=== PATIENT | female | born 1930 | race Caucasian/White ===

== ENCOUNTER 2016-12-05 10:00 | Outpatient (CLI) | payer MEDICARE, OTHER | END 2016-12-05 10:01 | disposition home or self-care (01) | LOC: LAB.F 10:00 | PROVIDERS: ATTEND Family Medicine | DX: E03.9 Hypothyroidism, unspecified (principal) | CPT/HCPCS: 36415; 84443 ==

== ENCOUNTER 2016-12-23 11:17 | Outpatient (CLI) | payer MEDICARE, OTHER ==
[2016-12-23 17:53] LABS: BASOPHILS % (AUTO) 0.5 %; EOSINOPHILS # (AUTO) 0.2 10^3/uL (0.0-0.7); EOSINOPHILS % (AUTO) 2.7 %; HCT - HEMATOCRIT 43.6 % (37.0-47.0); HGB - HEMOGLOBIN 14.4 g/dL (12.0-16.0); LYMPHOCYTES # (AUTO) 1.7 10^3/uL (1.5-3.5); LYMPHOCYTES % (AUTO) 23.1 %; MEAN CORPUSCULAR HEMOGLOBIN 29.6 pg (27.0-31.0); MEAN CORPUSCULAR VOLUME 89.6 fL (81.0-99.0); MONOCYTES % (AUTO) 13.7 %; NEUTROPHILS # (AUTO) 4.4 10^3/uL (1.5-6.6); NUCLEATED RED BLOOD CELLS AUTO 0.1 /100WBC; RED BLOOD COUNT 4.87 10^6/uL (4.20-5.40); RED CELL DISTRIBUTION WIDTH 14.4 % (12.0-15.0); UNCORRECTED WHITE BLOOD COUNT 7.3 x10^3/uL; WHITE BLOOD COUNT 7.3 x10^3/uL (4.8-10.8)
[2016-12-23 18:09] LABS: ALBUMIN/GLOBULIN RATIO 1.4 (1.0-2.2); BILIRUBIN,TOTAL 0.9 mg/dL (0.2-1.0); CREATININE 0.7 mg/dL (0.4-1.0); POTASSIUM 3.2 mmol/L (3.5-5.0); TOTAL PROTEIN 6.7 g/dL (6.7-8.2)
== END 2016-12-23 11:18 | disposition home or self-care (01) ==
LOC: LAB.F 11:17
PROVIDERS: ATTEND Physician Assistant Medical
DX: Z51.81 Encounter for therapeutic drug level monitoring (principal); Z79.899 Other long term (current) drug therapy
CPT/HCPCS: 36415; 80053; 85025

== ENCOUNTER 2017-08-09 18:02 | Emergency (ER) | payer MEDICARE, OTHER ==
--- NOTE | 2017-08-09 18:53 | XRAY Report ---
EXAM: LEFT WRIST RADIOGRAPHY EXAM DATE: 08/09/2017 06:45 PM. CLINICAL HISTORY: Wrist inj. COMPARISON: None. TECHNIQUE: 3 views. FINDINGS: Bones: There is a mildly comminuted and impacted intra-articular fracture involving the distal radius . Moderate dorsal displacement of distal fracture fragments. Joints: Normal. No subluxations. Soft Tissues: Normal. No soft tissue swelling. IMPRESSION: Mildly comminuted and impacted intra-articular fracture of the distal radius with moderat e dorsal distal fracture fragment displacement. [facility] Referring Provider Line: [phone] SITE ID: [id number]
[2017-08-09] MEDS ORDERED: BUFFERED LIDOCAINE 10 ML SYRINGE SUBQ STA (18:54)
--- NOTE | 2017-08-09 19:25 | ED Physician Documentation ---
PD HPI UPPER EXT INJURY - Stated complaint Stated Complaint: WRIST INJURY - Chief complaint Chief Complaint: Ext Problem - History obtained from History obtained from: Patient, Family - History of Present Illness Location: Left, Wrist (She had a mechanical trip and fall while gardening and had a fall on outstretched left hand. She also hit her chest but that does not hurt. No head or neck injury.) Where injury occurred: Home Timing - onset: Today Review of Systems Constitutional: reports: Reviewed and negative Throat: reports: Reviewed and negative Cardiac: reports: Reviewed and negative Respiratory: reports: Reviewed and negative PD PAST MEDICAL HISTORY - Past Medical History Past Medical History: Yes Cardiovascular: Congestive heart failure, Hypertension, Atrial fibrillation Endocrine/Autoimmune: HyPOthyroidism - Past Surgical History Past Surgical History: Yes - Present Medications Home Medications: Ambulatory Orders Medication Instructions Recorded Confirmed Apixaban [Eliquis] 2.5 mg PO BID 03/12/15 03/12/15 Furosemide [Lasix] 20 mg PO DAILY 03/12/15 03/12/15 Levothyroxine [Synthroid] 25 mcg PO DAILY 03/12/15 03/12/15 HYDROcod/ACETAM 5/325 [[place] 5/325] 1 - 2 ea PO Q6H PRN #15 tablet 08/09/17 - Allergies Allergies/Adverse Reactions: Allergies Allergy/AdvReac Type Severity Reaction Status Date / Time No Known Drug Allergies Allergy Verified 03/12/15 01:19 - Social History Does the pt smoke?: No Smoking Status: Never smoker Does the pt drink ETOH?: No Does the pt have substance abuse?: No - Immunizations Immunizations are current?: Yes PD ED PE NORMAL - Vitals Vital signs reviewed: Yes - General General: Alert and oriented X 3, No acute distress - HEENT HEENT: PERRL, EOMI - Neck Neck: Supple, no meningeal sign, No bony TTP - Extremities Extremities: Other (She is deformed left wrist consistent with an angulated Colles' fracture and no range of motion there but normal neurovascular status in the hand. The remainder of her extremities are palpated and nontender.) - Neuro Neuro: Alert and oriented X 3, Normal speech - Psych Psych: Normal mood, Normal affect Results - Vitals Vitals: Vital Signs - 24 hr 08/09/17 18:15 Temperature 37.2 C Heart Rate 97 Respiratory 18 Rate Blood Pressure 115/94 H O2 Saturation 97 Oxygen O2 Source Room air - Rads (name of study) L wrist XR Radiology: EMP read contemporaneously (Moderately angulated and mildly impacted Colles' fracture) Procedures - Splint (location) LUE Splint applied by: Physician Type of splint: Fiberglass, Long arm, Sugar tong Other: Patient tolerated well, No complications, Neurovascular intact - Reduction Body part reduced: Left, Wrist Fracture or dislocation: Fracture dislocation Anesthesia: Hematoma block, Lidocaine (enter cc) Reduction aftercare: Alignment improved Departure - Departure Disposition: 01 Home, Self Care Clinical Impression: Fracture, Colles, left, closed Qualifiers: Encounter type: initial encounter Qualified Code(s): S52.532A - Colles' fracture of left radius, initial encounter for closed fracture Condition: Good Record reviewed to determine appropriate education?: Yes Instructions: ED Fx Forearm Radius Ulna Redu Requ Follow-Up: [facility] [Provider Group] - Within 1 week Prescriptions: HYDROcod/ACETAM 5/325 [[place] 5/325] 1 - 2 ea PO Q6H PRN #15 tablet PRN Reason: Pain Comments: Do not drink or drive while taking narcotic pain medication. Note that many narcotic pain relievers also contain Tylenol/acetaminophen. Please ensure that your total dose of acetaminophen from all sources does not exceed 3 g (3000 mg) per day. You may get constipated while on this medication. Take a stool softener such as Colace twice a day while you are on it. Also add an pbqd-oeg-[id number] laxative such as senna or MiraLAX on any day that you do not have a bowel movement. If you received a narcotic pain medication or sedative while in the emergency department, do not drive for the next 24 hours. Your blood pressure was elevated today on check into the emergency department. This does not mean that you have hypertension, it is a common phenomenon to come to the emergency department and have elevated blood pressure. I recommend that you see your primary care physician within the week to have it rechecked when you are feeling better.
[2017-08-09] MEDS ORDERED: HYDROcod/ACETAM 5/325 MG TABLET PO STA (19:46)
[2017-08-09 20:00] VITALS: BP 126/81
== END 2017-08-09 19:55 | disposition home or self-care (01) ==
LOC: ED 18:02
DX: S52.532A Colles' fracture of left radius, initial encounter for closed fracture (principal); W01.0XXA Fall on same level from slipping, tripping and stumbling without subsequent striking against object, initial encounter; Y93.H2 Activity, gardening and landscaping; Y92.007 Garden or yard of unspecified non-institutional (private) residence as the place of occurrence of the external cause; I11.0 Hypertensive heart disease with heart failure; I50.9 Heart failure, unspecified; I48.91 Unspecified atrial fibrillation; Z79.01 Long term (current) use of anticoagulants; E03.9 Hypothyroidism, unspecified
CPT/HCPCS: 25605; 73110; 99283; A9270

== ENCOUNTER 2017-08-17 06:14 | Day surgery (SDC) | payer MEDICARE, OTHER ==
[~2017-08-17 06:14] MED LIST: ACETAMINOPHEN 1,000 MG/100 ML 100 ML IV ONE; DEXAMETHASONE 4 MG/ML VIAL IVP ONE; LIDOCAINE-MPF 2% 5 ML VIAL IM ONE; MIDAZOLAM 2 MG/2 ML VIAL IVP ONE; ONDANSETRON 4 MG/2 ML VIAL IVP ONE; PROPOFOL 200 MG/20 ML VIAL IVP ONE; fentaNYL 100 MCG/2 ML VIAL IVP ONE
[2017-08-17] MEDS ORDERED: LIDOCAINE-MPF 2% 5 ML VIAL IM ONE (06:15)
[2017-08-17] MEDS ORDERED: PROPOFOL 200 MG/20 ML VIAL IVP ONE (06:15)
[2017-08-17] MEDS ORDERED: MIDAZOLAM 2 MG/2 ML VIAL IVP ONE (06:15)
[2017-08-17] MEDS ORDERED: fentaNYL 100 MCG/2 ML VIAL IVP ONE (06:15)
[2017-08-17] MEDS ORDERED: ONDANSETRON 4 MG/2 ML VIAL IVP ONE (06:15)
[2017-08-17] MEDS ORDERED: DEXAMETHASONE 4 MG/ML VIAL IVP ONE (06:15)
[2017-08-17] MEDS ORDERED: ACETAMINOPHEN 1,000 MG/100 ML 100 ML IV ONE (06:15)
[2017-08-17] MEDS ORDERED: LACTATED RINGERS 1,000 ML IV ONE (07:14)
[2017-08-17] MEDS ORDERED: LIDOCAINE 1%-EPI 1:100000 30 ML MDV ONE (07:35)
[2017-08-17] MEDS ORDERED: BUPIVACAINE 0.25%-EPI 1:200000 PF 30 ML VIAL ONE (07:35)
[2017-08-17] MEDS ORDERED: LIDOCAINE MPF 1%-EPI 1:200000 30 ML VIAL SUBQ ONE (07:58)
[2017-08-17] MEDS ORDERED: BUPIVACAINE 0.25%-EPI 1:200000 PF 10 ML VIAL SUBQ ONE (07:58)
[2017-08-17 09:56] VITALS: BP 137/83
--- NOTE | 2017-08-17 16:17 | OPERATIVE REPORT ---
DATE OF SERVICE: 08/17/2017 Physician: Renny Dempsey MD PREOPERATIVE DIAGNOSIS: Left wrist closed intra-articular angulated distal radial fracture. POSTOPERATIVE DIAGNOSIS: Left wrist closed intra-articular angulated distal radial fracture. PROCEDURE PERFORMED: Left wrist closed reduction with percutaneous pinning of the distal radius. SURGEON: Renny Dempsey M.D. ANESTHESIA: General by Alta Valera. INDICATIONS FOR SURGERY: Patient is an 87-year-old female status post a ground level fall with injury to the left wrist causing a comminuted intra-articular angulated and displaced fracture. The patient was seen in the ER initially and referred to the clinic where a discussion was held with the patient about possible modes of treatment including accepting the deformity and treating her with casting versus intraoperative treatment by plate fixation or pinning. The patient elected for surgical repair after a full discussion of risks and benefits. DESCRIPTION OF OPERATIVE PROCEDURE: The patient was taken to the operating room. Prior to prep and drape, the patient underwent a closed reduction with C-arm imaging and an adequate reduction was gained and it was felt stable for pinning. The patient unfortunately had a dorsal skin tear with the manual manipulation and this was a very superficial skin tear on the dorsum of the wrist, but fairly extensile of about 4 cm in length. It was elected at that point to proceed with a sterile prep and drape and careful repositioning of the dorsal skin tear to allow position of the fracture and no further manipulation required. Once the hand and arm were prepped and draped, surgical timeout was held after which, a C-arm imaging was used to directly visualize the insertion of two 0.062 K-wires from transradial styloid into the more proximal radial shaft gaining very good fixation and excellent alignment in radiographic AP and lateral planes. The pins were bent and cut outside the skin with a Jurgan ball applied to one of them and the other placed next to it. The suture repair of the dorsal flap was with 4-0 nylon interrupted tacking the flap back down again and then applying Xeroform dressings on the flap and the pin sites and then sterile dressings and a well-molded splint to immobilize the patient's wrist and thumb. At this point, the patient was awakened and taken to the recovery room in stable condition. ESTIMATED BLOOD LOSS: Minimal. COMPLICATIONS: Involved a superficial dorsal skin tear requiring suture closure. TD: 08/17/2017 08:46
== END 2017-08-17 06:15 | disposition home or self-care (01) ==
LOC: SDS 06:14
PROVIDERS: ATTEND Orthopaedic Surgery
PROC: 0PSJ34Z Reposition Left Radius with Internal Fixation Device, Percutaneous Approach (ICD-10-PCS; principal; 2017-08-17 07:30)
DX: S52.572A Other intraarticular fracture of lower end of left radius, initial encounter for closed fracture (principal); I50.9 Heart failure, unspecified
CPT/HCPCS: 25606; C1713; J0131; J7120

== ENCOUNTER 2017-08-31 10:50 | Outpatient (CLI) | payer MEDICARE, OTHER ==
--- NOTE | 2017-08-31 12:14 | XRAY Report ---
Procedure Date: 08/31/2017 Accession Number: [id number] / [id number] Procedure: XR - Hip w/Pelvis 2-3V LT CPT Code: FULL RESULT: EXAM: Hip w/Pelvis 2-3V LT DATE: 08/31/2017 11:02 AM CLINICAL HISTORY: HIP Pain, left COMPARISON: 06/03/2009 TECHNIQUE: 1 view of the pelvis and 1 view of the hip. FINDINGS: Bones: Previous right hip fixation. Old, healed pelvic fractures. Previous lumbar spine fusion. Joints: Mild osteoarthritis of the left hip. Soft Tissues: Normal. No soft tissue swelling. IMPRESSION: Mild osteoarthritis. Posttraumatic changes. No evidence of acute fracture. [facility]
== END 2017-08-31 10:51 | disposition home or self-care (01) ==
LOC: DI 10:50
PROVIDERS: ATTEND Internal Medicine
DX: M16.12 Unilateral primary osteoarthritis, left hip (principal)

== ENCOUNTER 2017-09-23 13:20 | Outpatient (CLI) | payer MEDICARE, OTHER | END 2017-09-23 13:21 | disposition short-term general hospital (02) | LOC: EMS 13:20 | PROVIDERS: ATTEND Surgery | DX: M54.5 Low back pain (principal) | CPT/HCPCS: A0170; A0425; A0427 ==

== ENCOUNTER 2018-02-06 15:55 | Outpatient (CLI) | payer MEDICARE, OTHER ==
--- NOTE | 2018-02-06 18:21 | XRAY Report ---
Reason: PAIN IN RIGHT THIGH Procedure Date: 02/06/2018 Accession Number: [id number] / [id number] Procedure: XR - Hip w/Pelvis 2-3V RT CPT Code: FULL RESULT: EXAM: RIGHT HIP AND PELVIS RADIOGRAPHY EXAM DATE: 02/06/2018 04:12 PM. HISTORY: PAIN IN RIGHT THIGH. COMPARISONS: LUMBAR SPINE 2 VIEW 11/27/2017 1:46 PM. TECHNIQUE: 1 view of the pelvis and 1 view of the hip. FINDINGS: Bones: Patient has undergone internal fixation of right femoral neck fracture. 3 femoral neck screws are in place. No evidence of hardware dysfunction. Joints: No evidence of dislocation. There is sclerosis of the right sacroiliac joint. Soft Tissues: No acute soft tissue abnormalities are seen. IMPRESSION: 1. No evidence of acute fracture or dislocation. 2. Patient has undergone internal fixation of proximal right femur fracture. There is no evidence of hardware dysfunction. 3. There is right sacroiliac joint sclerosis. [facility]
== END 2018-02-06 15:56 | disposition home or self-care (01) ==
LOC: DI 15:55
PROVIDERS: ATTEND Internal Medicine
DX: M79.651 Pain in right thigh (principal); Z98.890 Other specified postprocedural states

== ENCOUNTER 2018-05-19 00:30 | Outpatient (CLI) | payer MEDICARE, OTHER | END 2018-05-19 00:31 | disposition critical access hospital (66) | LOC: EMS 00:30 | PROVIDERS: ATTEND Surgery | DX: S49.92XA Unspecified injury of left shoulder and upper arm, initial encounter (principal); W18.09XA Striking against other object with subsequent fall, initial encounter; Y92.008 Other place in unspecified non-institutional (private) residence as the place of occurrence of the external cause | CPT/HCPCS: A0425; A0427 ==

== ENCOUNTER 2018-05-19 01:02 | Emergency (ER) | payer MEDICARE, OTHER ==
--- NOTE | 2018-05-19 01:13 | ED Physician Documentation ---
PD HPI UPPER EXT INJURY - Stated complaint Stated Complaint: GLF/SHOULDER INJURY - Chief complaint Chief Complaint: Trauma Ext - History obtained from History obtained from: Patient - History of Present Illness Location: Left, Shoulder Type of injury: Fall Where injury occurred: Home Timing - onset: Today Timing - duration: Minutes Timing - details: Abrupt onset, Still present Improved by: Rest, Immobilization Worsened by: Moving, Palpating Associated symptoms: No: Weakness, Numbness, Tingling Contributing factors: No: Anticoagulated Similar symptoms before: Diagnosis (wrist fracture) Recently seen: Not recently seen - Additonal information Additional information: 88-year-old female who lives alone and usually ambulates with the use of a 3 wheeled walker was walking in her house this evening with her shoes on. She does not usually wear her shoes and she tripped over a rug and fell onto her left side injuring her left shoulder. She denies any other specific injury denies any loss of consciousness with this and denies any current illness. She is not able to move her left arm secondary to pain in the shoulder. She has had a fracture of her wrist previously and she requests the presence of Dr. Love. Review of Systems Constitutional: denies: Fever Eyes: denies: Decreased vision Ears: denies: Ear pain Nose: denies: Congestion Throat: denies: Sore throat Cardiac: denies: Palpitations Respiratory: denies: Dyspnea, Cough GI: denies: Abdominal Pain, Nausea, Vomiting, Constipation, Diarrhea : denies: Dysuria, Frequency Skin: denies: Rash Musculoskeletal: reports: Extremity pain, Joint pain. denies: Neck pain, Back pain Neurologic: denies: Generalized weakness, Focal weakness, Numbness PD PAST MEDICAL HISTORY - Past Medical History Cardiovascular: Congestive heart failure, Coronary artery disease, Deep vein thrombosis, Pulmonary embolism, Atrial fibrillation, Other Respiratory: COPD, Other Endocrine/Autoimmune: HyPOthyroidism GI: GI bleed, Ulcers, Chronic constipation, Other : Chronic bladder infection HEENT: Chronic vision loss Psych: Anxiety, Panic attacks Musculoskeletal: Osteoarthritis, Chronic back pain Derm: None - Past Surgical History Past Surgical History: Yes General: Bowel surgery, Colonoscopy Ortho: Hip replacement, 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 Cardiovascular: Other - Present Medications Home Medications: Ambulatory Orders Medication Instructions Recorded Confirmed Apixaban [Eliquis] 2.5 mg PO BID 03/12/15 08/15/17 Levothyroxine [Synthroid] 75 mcg PO DAILY 03/12/15 08/15/17 Albuterol Sulf [Ventolin Hfa 1 - 2 puffs INH Q4HR PRN 08/15/17 08/15/17 Inhaler] Calcium Carbonate [Calcium] 1,200 mg PO BID 08/15/17 08/17/17 Cholecalciferol (Vitamin D3) 1,000 unit PO DAILY 08/15/17 08/17/17 [Vitamin D3] Cyanocobalamin (Vitamin B-12) 500 mcg PO DAILY 08/15/17 08/17/17 [Vitamin B-12] Fluticasone/Vilanterol [Breo 1 each IH DAILY 08/15/17 08/15/17 Ellipta 100-25 Mcg INH] L. Acidophilus/L. Rhamnosus 1 each PO DAILY 08/15/17 08/17/17 [Probiotic 15 Billion Cell Cap] Methenamine Hippurate 1 gm PO .Q12HR 08/15/17 08/17/17 Multivitamin [Multiple Vitamins] 1 each PO DAILY 08/15/17 08/17/17 Potassium Gluconate 550 mg PO DAILY 08/15/17 08/17/17 Pyridoxine HCl [Vitamin B-6] 100 mg PO DAILY 08/15/17 08/17/17 Vitamin E (Dl,Tocopheryl Acet) 400 unit PO DAILY 08/15/17 08/17/17 [Vitamin E] Zolpidem [Ambien] 5 mg PO HS PRN 08/15/17 08/17/17 Hydrocodone/Acetaminophen 1 - 2 each PO Q6H PRN #14 tablet 05/19/18 [Hydrocodon-Acetaminophen 5-325] - Allergies Allergies/Adverse Reactions: Allergies Allergy/AdvReac Type Severity Reaction Status Date / Time ciprofloxacin [From Cipro] AdvReac increased Verified 08/17/17 07:03 pain Sulfa (Sulfonamide AdvReac Nausea Verified 08/17/17 07:03 Antibiotics) - Social History Does the pt smoke?: No Smoking Status: Never smoker Does the pt drink ETOH?: No Does the pt have substance abuse?: No - Immunizations Immunizations are current?: Yes PD ED PE NORMAL - Vitals Vital signs reviewed: Yes (tachy and hypertensive ) - General General: Alert and oriented X 3, Well developed/nourished, Other (appears anxious and in pain ) - HEENT HEENT: Atraumatic, PERRL, EOMI - Neck Neck: Supple, no meningeal sign - Respiratory Respiratory: No respiratory distress - Derm Derm: Normal color, Warm and dry, No rash - Extremities Extremities: Other (There is anterior fullness on the left side and the patient will not move the arm. She is able to move the wrist and the hand and has normal distal sensation. 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 Osteopenia with fracture at the neck of the humerus.), EMP read indepedently, See rad report PD MEDICAL DECISION MAKING - ED course Complexity details: reviewed old records, reviewed results, re-evaluated patient, considered differential, d/w patient, d/w family ED course: 88-year-old female with a fall in her home denies current illness repeats that she tripped over a rug because she had her shoes on and she has a proximal humerus fracture. She is placed into a sling she is administered fentanyl 100 mcg intravenously for pain control and this works well for the patient. She does have a tenant who lives above her who will be [facility] and she has a daughter that lives in [place] that can come back over to visit. I have indicated to the patient that she will likely develop some ecchymosis to the left forearm and that because she is 3 wheel walker dependent she may have some trouble at home. She feels confident that she will be able to manage at home. Departure - Departure Disposition: 01 Home, Self Care Clinical Impression: Fx humeral neck Qualifiers: Encounter type: initial encounter Fracture type: closed Laterality: left Qualified Code(s): S42.212A - Unspecified displaced fracture of surgical neck of left humerus, initial encounter for closed fracture Condition: Stable Instructions: Humerus Fx Follow-Up: David Castillo MD [Primary Care Provider] - Renny Dempsey MD [Provider Admit Priv/Credential] - Prescriptions: Hydrocodone/Acetaminophen [Hydrocodon-Acetaminophen 5-325] 1 - 2 each PO Q6H PRN #14 tablet PRN Reason: pain
[2018-05-19 01:19] VITALS: BP 161/114
[2018-05-19] MEDS ORDERED: fentaNYL 100 MCG/2 ML VIAL IVP STA (01:39)
--- NOTE | 2018-05-19 02:07 | XRAY Report ---
Reason: fall anterior fullness wont move the arm Procedure Date: 05/19/2018 Accession Number: [id number] / [id number] Procedure: XR - Shoulder 3 View LT CPT Code: FULL RESULT: EXAM: LEFT SHOULDER RADIOGRAPHY EXAM DATE: 05/19/2018 01:57 AM. CLINICAL HISTORY: Fall anterior fullness wont move the arm. COMPARISON: None. TECHNIQUE: 3 views. FINDINGS: Bones: Osteopenia. Fracture of the humeral neck. Joints: No dislocation seen. Mild degenerative changes in the glenohumeral joint and acromioclavicular joint. Soft tissues: Mild soft tissue swelling. IMPRESSION: 1. Osteopenia with fracture at the neck of the humerus. [facility]
[2018-05-19] MEDS ORDERED: HYDROcod/ACET 5/325 Prepack 4 PO STA (03:12)
== END 2018-05-19 03:30 | disposition home or self-care (01) ==
LOC: EDUNIT# → ED 01:02
DX: S42.292A Other displaced fracture of upper end of left humerus, initial encounter for closed fracture (principal); W01.0XXA Fall on same level from slipping, tripping and stumbling without subsequent striking against object, initial encounter; Y93.01 Activity, walking, marching and hiking; Y92.009 Unspecified place in unspecified non-institutional (private) residence as the place of occurrence of the external cause
CPT/HCPCS: 96374; 99283

== ENCOUNTER 2018-05-24 14:00 | Outpatient (CLI) | payer MEDICARE, OTHER ==
[2018-05-24 17:45] LABS: BASOPHILS # (AUTO) 0.1 10^3/uL (0.0-0.1); BASOPHILS % (AUTO) 0.8 %; EOSINOPHILS # (AUTO) 0.3 10^3/uL (0.0-0.7); EOSINOPHILS % (AUTO) 3.7 %; HGB - HEMOGLOBIN 12.3 g/dL (12.0-16.0); LYMPHOCYTES # (AUTO) 1.3 10^3/uL (1.5-3.5); LYMPHOCYTES % (AUTO) 18.5 %; MEAN CORPUSCULAR HEMOGLOBIN 29.5 pg (27.0-31.0); MEAN CORPUSCULAR HGB CONC 32.6 g/dL (32.0-36.0); MEAN CORPUSCULAR VOLUME 90.6 fL (81.0-99.0); MEAN PLATELET VOLUME 8.8 fL (7.9-10.8); MONOCYTES # (AUTO) 0.9 10^3/uL (0.0-1.0); MONOCYTES % (AUTO) 12.8 %; NEUTROPHILS # (AUTO) 4.4 10^3/uL (1.5-6.6); NEUTROPHILS % (AUTO) 64.2 %; PLT - PLATELET COUNT 263 10^3/uL (130-450); RED BLOOD COUNT 4.16 10^6/uL (4.20-5.40); WHITE BLOOD COUNT 6.9 x10^3/uL (4.8-10.8)
[2018-05-24 18:00] LABS: ALBUMIN 3.6 g/dL (3.2-5.5); ALBUMIN/GLOBULIN RATIO 1.3 (1.0-2.2); BILIRUBIN,TOTAL 1.3 mg/dL (0.2-1.0); CALCIUM 8.5 mg/dL (8.5-10.3); CREATININE 0.6 mg/dL (0.4-1.0); TOTAL PROTEIN 6.4 g/dL (6.7-8.2)
== END 2018-05-24 14:01 | disposition home or self-care (01) ==
LOC: LAB.F 14:00
PROVIDERS: ATTEND Internal Medicine
DX: Z00.00 Encounter for general adult medical examination without abnormal findings (principal); I48.0 Paroxysmal atrial fibrillation
CPT/HCPCS: 36415; 80053; 84443; 85025

== ENCOUNTER 2018-05-31 08:40 | Outpatient (CLI) | payer MEDICARE, OTHER | END 2018-05-31 08:41 | disposition EMS.NT | LOC: EMS 08:40 | PROVIDERS: ATTEND Surgery | DX: M25.512 Pain in left shoulder (principal); W18.30XA Fall on same level, unspecified, initial encounter ==

== ENCOUNTER 2018-05-31 10:08 | Emergency (ER) | payer MEDICARE, OTHER ==
--- NOTE | 2018-05-31 11:57 | XRAY Report ---
Reason: fall today Procedure Date: 05/31/2018 Accession Number: [id number] / [id number] Procedure: XR - Humerus LT CPT Code: FULL RESULT: EXAM: LEFT HUMERUS RADIOGRAPHY EXAM DATE: 05/31/2018 11:04 AM. CLINICAL HISTORY: Increased pain after fall today. History of fracture shoulder 05/19/2018. COMPARISON: Left shoulder series 05/19/2018. TECHNIQUE: 2 views. FINDINGS: Bones: Redemonstration of displaced left humeral neck fracture. Lateral view technically limited by bony overlap. There is nondisplaced fracture of the greater tuberosity not evident previously. Joints: No dislocation or change. Soft Tissues: Mild swelling. IMPRESSION: 1. Displaced left humeral neck fracture in grossly stable alignment. 2. Nondisplaced fracture of the greater tuberosity not evident previously. [facility]
--- NOTE | 2018-05-31 12:06 | ED Physician Documentation ---
PD HPI UPPER EXT INJURY - Stated complaint Stated Complaint: GLF - Chief complaint Chief Complaint: Ext Problem - History obtained from History obtained from: Patient, Family - History of Present Illness Location: Left, Shoulder, Forearm Type of injury: Fall (stumbled and fell to left, according to ) Where injury occurred: Home Timing - onset: Today Timing - details: Abrupt onset Worsened by: Moving Contributing factors: No: Anticoagulated (Rx Eliquis but had run out over a week ago, so not on it currently. Has Rx to resume it tomorrow.) Recently seen: Emergency Dept (recent fall with humeral head Fx and has been w earing sling. Taking only Tylenol or Ibuprofen for the pain. Wearing sling regularly.) Review of Systems Constitutional: denies: Fever Nose: denies: Rhinorrhea / runny nose, Congestion Throat: denies: Sore throat Cardiac: reports: Pedal edema. denies: Chest pain / pressure, Calf pain Respiratory: reports: Dyspnea. denies: Cough, Wheezing GI: denies: Abdominal Pain, Vomiting, Diarrhea, Bloody / black stool Skin: denies: Abrasion (s), Laceration (s) PD PAST MEDICAL HISTORY - Past Medical History Cardiovascular: Congestive heart failure, Coronary artery disease, Deep vein thrombosis, Pulmonary embolism, Atrial fibrillation, Other Respiratory: COPD, Other Endocrine/Autoimmune: HyPOthyroidism GI: GI bleed, Ulcers, Chronic constipation, Other : Chronic bladder infection HEENT: Chronic vision loss Psych: Anxiety, Panic attacks Musculoskeletal: Osteoarthritis, Chronic back pain Derm: None - Past Surgical History Past Surgical History: Yes General: Bowel surgery, Colonoscopy Ortho: Hip replacement, 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 Cardiovascular: Other - Present Medications Home Medications: Ambulatory Orders Medication Instructions Recorded Confirmed Apixaban [Eliquis] 2.5 mg PO BID 03/12/15 08/15/17 Levothyroxine [Synthroid] 75 mcg PO DAILY 03/12/15 08/15/17 Albuterol Sulf [Ventolin Hfa 1 - 2 puffs INH Q4HR PRN 08/15/17 08/15/17 Inhaler] Calcium Carbonate [Calcium] 1,200 mg PO BID 08/15/17 08/17/17 Cholecalciferol (Vitamin D3) 1,000 unit PO DAILY 08/15/17 08/17/17 [Vitamin D3] Cyanocobalamin (Vitamin B-12) 500 mcg PO DAILY 08/15/17 08/17/17 [Vitamin B-12] Fluticasone/Vilanterol [Breo 1 each IH DAILY 08/15/17 08/15/17 Ellipta 100-25 Mcg INH] L. Acidophilus/L. Rhamnosus 1 each PO DAILY 08/15/17 08/17/17 [Probiotic 15 Billion Cell Cap] Methenamine Hippurate 1 gm PO .Q12HR 08/15/17 08/17/17 Multivitamin [Multiple Vitamins] 1 each PO DAILY 08/15/17 08/17/17 Potassium Gluconate 550 mg PO DAILY 08/15/17 08/17/17 Pyridoxine HCl [Vitamin B-6] 100 mg PO DAILY 08/15/17 08/17/17 Vitamin E (Dl,Tocopheryl Acet) 400 unit PO DAILY 08/15/17 08/17/17 [Vitamin E] Zolpidem [Ambien] 5 mg PO HS PRN 08/15/17 08/17/17 Hydrocodone/Acetaminophen 1 - 2 each PO Q6H PRN #14 tablet 05/19/18 [Hydrocodon-Acetaminophen 5-325] - Allergies Allergies/Adverse Reactions: Allergies Allergy/AdvReac Type Severity Reaction Status Date / Time ciprofloxacin [From Cipro] AdvReac increased Verified 08/17/17 07:03 pain Sulfa (Sulfonamide AdvReac Nausea Verified 08/17/17 07:03 Antibiotics) - Social History Does the pt smoke?: No Smoking Status: Never smoker Does the pt drink ETOH?: No Does the pt have substance abuse?: No - Immunizations Immunizations are current?: Yes PD ED PE NORMAL - Vitals Vital signs reviewed: Yes - General General: Alert and oriented X 3, Well developed/nourished - HEENT HEENT: Atraumatic, Moist mucous membranes, Pharynx benign - Neck Neck: Supple, no meningeal sign, No bony TTP - Cardiac Cardiac: RRR, No murmur - Respiratory Respiratory: Clear bilaterally - Abdomen Abdomen: Soft, Non tender - Derm Derm: Normal color, Warm and dry - Extremities Extremities: No calf tenderness / cord, Other (mild edema in both legs, left more, 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 Left elbow with mild abrasion or rub area. Shoulder with guarded ROM. ) Results - Vitals Vitals: Vital Signs - 24 hr 05/31/18 05/31/18 10:27 13:02 Temperature 36.4 C L 36.2 C L Heart Rate 110 H 106 H Respiratory 20 16 Rate Blood Pressure 163/91 H 141/89 H O2 Saturation 97 97 Oxygen O2 Source Room air - Rads (name of study) left humerus Radiology: Prelim report reviewed, EMP read contemporaneously (prior fracture in much better position. No new fracture. ), See rad report PD MEDICAL DECISION MAKING - ED course Complexity details: considered differential (recent humeral head fx and fell again when turned quick and stumbled. Fell to left side and has some elbow pain. Denies other injury, did not hit head. Had run out of Eliquis so not on it the past week or more. 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 ), d/w patient, d/w family Departure - Departure Disposition: 01 Home, Self Care Clinical Impression: Fall from slip, trip, or stumble Qualifiers: Encounter type: initial encounter Qualified Code(s): W01.0XXA - Fall on same level from slipping, tripping and stumbling without subsequent striking against object, initial encounter Elbow pain Qualifiers: Laterality: left Qualified Code(s): M25.522 - Pain in left elbow Fx humeral neck Qualifiers: Encounter type: subsequent encounter Fracture type: closed Laterality: left Fracture healing: with routine healing Qualified Code(s): S42.212D - Unspecified displaced fracture of surgical neck of left humerus, subsequent encounter for fracture with routine healing Condition: Stable Record reviewed to determine appropriate education?: Yes Follow-Up: David Castillo MD [Primary Care Provider] - Renny Dempsey MD [Provider Admit Priv/Credential] - Comments: Your prior fracture of the humeral head is actually in good position on the repeat x-ray today. There is no new fractures seen. Continue treatment with the sling and follow-up with orthopedics as planned. Continue present medications of Tylenol or ibuprofen as needed for pains. Resume the Eliquis and start the triamterene diuretic as prescribed by your truck farmer. Discharge Date/Time: 05/31/18 13:08
[2018-05-31] MEDS ORDERED: ACETAMINOPHEN 325 MG TABLET PO STA (12:24)
[2018-05-31] MEDS ORDERED: A & D OINTMENT 5 GM PACKET TOP STA (12:24)
[2018-05-31] MEDS ORDERED: HYDROcod/ACETAM 5/325 MG TABLET PO STA (12:25)
[2018-05-31] MEDS ORDERED: NAPROXEN 250 MG TABLET PO STA (12:25)
[2018-05-31 13:03] VITALS: BP 141/89
== END 2018-05-31 13:08 | disposition home or self-care (01) ==
LOC: ED 10:08
DX: S42.255A Nondisplaced fracture of greater tuberosity of left humerus, initial encounter for closed fracture (principal); W01.0XXA Fall on same level from slipping, tripping and stumbling without subsequent striking against object, initial encounter; Y92.009 Unspecified place in unspecified non-institutional (private) residence as the place of occurrence of the external cause; S42.212A Unspecified displaced fracture of surgical neck of left humerus, initial encounter for closed fracture; M25.522 Pain in left elbow; I50.9 Heart failure, unspecified; I25.10 Atherosclerotic heart disease of native coronary artery without angina pectoris; Z86.718 Personal history of other venous thrombosis and embolism; S50.312A Abrasion of left elbow, initial encounter
CPT/HCPCS: 73060; 99283; A9270

== ENCOUNTER 2018-06-14 12:50 | Outpatient (CLI) | payer MEDICARE, OTHER ==
[2018-06-14 13:15] LABS: BASOPHILS # (AUTO) 0.1 10^3/uL (0.0-0.1); EOSINOPHILS # (AUTO) 0.1 10^3/uL (0.0-0.7); EOSINOPHILS % (AUTO) 1.7 %; HGB - HEMOGLOBIN 12.8 g/dL (12.0-16.0); LYMPHOCYTES # (AUTO) 1.4 10^3/uL (1.5-3.5); LYMPHOCYTES % (AUTO) 16.9 %; MEAN CORPUSCULAR HEMOGLOBIN 29.6 pg (27.0-31.0); MEAN CORPUSCULAR HGB CONC 33.1 g/dL (32.0-36.0); MEAN CORPUSCULAR VOLUME 89.3 fL (81.0-99.0); MEAN PLATELET VOLUME 7.5 fL (7.9-10.8); MONOCYTES % (AUTO) 12.7 %; NEUTROPHILS # (AUTO) 5.4 10^3/uL (1.5-6.6); NEUTROPHILS % (AUTO) 67.7 %; PLT - PLATELET COUNT 319 10^3/uL (130-450); RED BLOOD COUNT 4.34 10^6/uL (4.20-5.40); RED CELL DISTRIBUTION WIDTH 14.3 % (12.0-15.0)
[2018-06-14 13:27] LABS: CALCIUM 8.5 mg/dL (8.5-10.3); CREATININE 0.7 mg/dL (0.4-1.0)
== END 2018-06-14 12:51 | disposition home or self-care (01) ==
LOC: LAB 12:50
PROVIDERS: ATTEND Orthopaedic Surgery
DX: Z01.812 Encounter for preprocedural laboratory examination (principal); S42.222D 2-part displaced fracture of surgical neck of left humerus, subsequent encounter for fracture with routine healing; S42.302D Unspecified fracture of shaft of humerus, left arm, subsequent encounter for fracture with routine healing; Z79.899 Other long term (current) drug therapy
CPT/HCPCS: 36415; 80048; 85025; 87640

== ENCOUNTER 2018-06-21 10:07 | Outpatient (CLI) | payer MEDICARE, OTHER | END 2018-06-21 10:08 | disposition home or self-care (01) | LOC: LAB.F 10:07 | PROVIDERS: ATTEND Internal Medicine | DX: E03.9 Hypothyroidism, unspecified (principal); E87.6 Hypokalemia | CPT/HCPCS: 36415; 84132; 84443 ==

== ENCOUNTER 2018-06-26 10:28 | Inpatient (IN) | payer MEDICARE, OTHER ==
[~2018-06-26 10:28] MED LIST changes: -DEXAMETHASONE 4 MG/ML VIAL IVP ONE; -LIDOCAINE-MPF 2% 5 ML VIAL IM ONE; -MIDAZOLAM 2 MG/2 ML VIAL IVP ONE; -ONDANSETRON 4 MG/2 ML VIAL IVP ONE; -PROPOFOL 200 MG/20 ML VIAL IVP ONE; +ceFAZolin 2 GM/50 ML 2 GM/50 ML BAG IV ONE; -fentaNYL 100 MCG/2 ML VIAL IVP ONE
--- NOTE | 2018-06-26 11:23 | ANESTHESIA ---
Pre-Anesthesia VS, & Labs - Diagnosis Left humerous neck fracture - Procedure left shoulder hemiarthroplasty Vital Signs: Temp Pulse Resp BP Pulse Ox 36.5 C 105 H 18 147/95 H 98 06/26/18 10:35 06/26/18 10:35 06/26/18 10:35 06/26/18 10:35 06/26/18 10:35 Height 5 ft Weight (kg) 63 kg Body Mass Index 26.7 - NPO >8 hours - Is Patient ?: No Home Medications and Allergies Home Medications: Ambulatory Orders Levothyroxine Sodium [Synthroid] 50 mcg PO QDAC 06/26/18 Potassium Chloride [Klor-Con 10] 10 meq PO BIDWM 06/26/18 Triamterene/Hydrochlorothiazid [Triamterene-Hctz 37.5-25 mg Cp] 1 cap PO DAILY 06/26/18 Apixaban [Eliquis] 2.5 mg PO BID 03/12/15 Methenamine Hippurate 1 gm PO Q12H 08/15/17 Ascorbic Acid [Vitamin C] 500 mg PO DAILY 06/14/18 Cholecalciferol (Vitamin D3) [Vitamin D3] 3,000 unit PO DAILY 06/14/18 Mupirocin 1 applic TP BID PRN 06/14/18 Trazodone HCl 100 mg PO QPM 06/14/18 Triamcinolone 0.1% Oint [Kenalog 0.1% Oint] 1 applic TOP BID PRN 06/14/18 Levothyroxine Sodium [Synthroid] 50 mcg PO QDAC 06/26/18 Potassium Chloride [Klor-Con 10] 10 meq PO BIDWM 06/26/18 Triamterene/Hydrochlorothiazid [Triamterene-Hctz 37.5-25 mg Cp] 1 cap PO DAILY 06/26/18 Allergies/Adverse Reactions: Allergies Allergy/AdvReac Type Severity Reaction Status Date / Time ciprofloxacin [From Cipro] AdvReac increased Verified 08/17/17 07:03 pain Sulfa (Sulfonamide AdvReac Nausea Verified 08/17/17 07:03 Antibiotics) Anes History & Medical History - Anesthetic History Anesthesia Complications: reports: No previous complications - Medical History Cardiovascular: reports: Congestive heart failure, Deep vein thrombosis, Pulmonary embolism, Arrhythmia Pulmonary: reports: None Gastrointestinal: reports: Colon polyps, Chronic constipation, Other Urinary: reports: None, Incontinence Neuro: reports: TIA Musculoskeletal: reports: Osteoporosis, Chronic back pain Endocrine/Autoimmune: reports: HyPOthyroidism Blood Disorders: reports: None Skin: reports: Other Smoking Status: Never smoker Psychosocial: reports: No issues indicated - Surgical History General: Colonoscopy Eyes Ears Nose Throat (EENT): Cataracts, Tonsil/Adenoidectomy Cardiothoracic: Other Gynecologic: Tubal ligation Orthopedic: Spine surgery, Other Dermatologic: Skin cancer surgery Exam General: Alert, Oriented x3, Cooperative, No acute distress Dental: Poor dentition Mouth Openin Fingerbreadth (poor mouth opening) Neck Mobility: Normal Mallampati classification: IV Thyromental Distance: less than 4 cm Respiratory: Lungs clear, Normal breath sounds, No respiratory distress, No accessory muscle use Cardiovascular: Regular rate, Normal S1, Normal S2, No murmurs Mental/Cognitive Status: Alert/Oriented X3, Normal for patient Plan Anesthesia Type: General, Supraclavicular Block (Left for post op pain control per surgeon request) Regional Block: Per Surgeon's request for Post Op pain control Consent for Procedure(s) Verified and Reviewed: Yes Code Status: Attempt Resuscitation ASA classification: 3-Severe systemic disease Is this case an emergency?: No
[2018-06-26] MEDS ORDERED: LACTATED RINGERS 1,000 ML IV ONE ×3 (11:24→14:06)
[2018-06-26] MEDS ORDERED: MIDAZOLAM 2 MG/2 ML VIAL ONE (11:38)
[2018-06-26] MEDS ORDERED: BUPIVACAINE 0.5%-EPI 1:200000 PF 30 ML VIAL ONE (12:40)
[2018-06-26] MEDS ORDERED: BUPIVACAINE 0.25%-EPI 1:200000 PF 30 ML VIAL SUBQ ONE (12:43)
--- NOTE | 2018-06-26 12:49 | ANESTHESIA PROCEDURE NOTE ---
Diagnosis: Left humerous neck fracture Procedure: Left shoulder hemiarthroplasty Consent for Procedure(s) Verified and Reviewed: Yes Height and Weight: Height 5 ft Weight (kg) 63 kg Body Mass Index 26.7 Vital Signs: Temp Pulse Resp BP Pulse Ox 36.5 C 96 18 147/95 H 98 06/26/18 10:35 06/26/18 10:35 06/26/18 10:35 06/26/18 10:35 06/26/18 10:35 Allergies ciprofloxacin [From Cipro] Adverse Reaction (Verified 08/17/17 07:03) increased pain Sulfa (Sulfonamide Antibiotics) Adverse Reaction (Verified 08/17/17 07:03) Nausea Requesting Provider: Ke Location: Left supraclavicular block ASA classification: 3-Severe systemic disease Is this case an emergency?: No Anes. Monitoring and Equipment: Non-invasive BP, Pulse oximetery Anes. Procedure Start Time: 11:37 Anes. Procedure Stop Time: 11:47 Procedure Notes: Informed consent obtained and timeout procedure completed. Left supraclavicular block placed for post op pain management per surgeon request. 1 mg versed was given IV for patient comfort with meaningful contact remaining throughout procedure. Patient's left neck was prepped with chlorahexadine. Ultrasound was used to image the left brachial plexus at the supraclavicular level. A 22G blunt stimiplex needle was advanced under ultrasound guidance. A total of 30ml of 0.5% ropivicaine with 4mg of decadron was injected around the brachial plexus with adequate spread noted. Patient tolerated the procedure well. Full evaluation is pending.
[2018-06-26] MEDS ORDERED: BUPIVACAINE 0.5%-EPI 1:200000 PF 30 ML VIAL SUBQ ONE ×2 (12:54)
[2018-06-26] MEDS ORDERED: MIDAZOLAM 2 MG/2 ML VIAL IVP ONE (13:00)
[2018-06-26] MEDS ORDERED: ONDANSETRON 4 MG/2 ML VIAL IVP ONE (13:00)
[2018-06-26] MEDS ORDERED: PHENYLEPHRINE 50 MG/5 ML VIAL IV ONE (13:00)
[2018-06-26] MEDS ORDERED: PROPOFOL 200 MG/20 ML VIAL IVP ONE (13:00)
[2018-06-26] MEDS ORDERED: GLYCOPYRROLATE 1 MG/5 ML VIAL IVP ONE (13:00)
[2018-06-26] MEDS ORDERED: ROCURONIUM 50 MG/5 ML VIAL IVP ONE (13:00)
[2018-06-26] MEDS ORDERED: fentaNYL 100 MCG/2 ML VIAL IVP ONE (13:00)
[2018-06-26] MEDS ORDERED: TRANEXAMIC ACID 1,000 MG/10 ML VIAL IV ONE (13:00)
[2018-06-26] MEDS ORDERED: KETOROLAC 30 MG/ML VIAL IVP ONE (13:00)
[2018-06-26] MEDS ORDERED: LIDOCAINE-MPF 2% 5 ML VIAL IM ONE (13:00)
[2018-06-26] MEDS ORDERED: NEOSTIGMINE 1 MG/1 ML 10 ML MDV IVP ONE (13:00)
[2018-06-26] MEDS ORDERED: ACETAMINOPHEN 1,000 MG/100 ML 100 ML IV ONE (13:00)
[2018-06-26] MEDS ORDERED: DEXAMETHASONE 4 MG/ML VIAL IVP ONE (13:00)
[2018-06-26] MEDS ORDERED: BISACODYL 10 MG SUPP PR PRN (14:03)
[2018-06-26] MEDS ORDERED: ACETAMINOPHEN 325 MG TABLET PO PRN (14:03)
[2018-06-26] MEDS ORDERED: PROCHLORPERAZINE 10 MG/2 ML VIAL IVP PRN (14:03)
[2018-06-26] MEDS ORDERED: HYDROmorphone 0.5 MG/0.5 ML SYRINGE IVP PRN (14:03)
[2018-06-26] MEDS ORDERED: ACETAMINOPHEN 1,000 MG/100 ML 100 ML IV PRN (14:03)
[2018-06-26] MEDS ORDERED: ONDANSETRON 4 MG/2 ML VIAL IVP PRN (14:03)
[2018-06-26] MEDS ORDERED: SODIUM CHLORIDE FLUSH 0.9% 10 ML SYRINGE IVP PRN (14:03)
[2018-06-26] MEDS ORDERED: MUPIROCIN 2% OINT 1 GM TOP PRN (14:10)
[2018-06-26] MEDS ORDERED: TRIAMCINOLONE 0.1% OINT 15 GM TUBE TOP PRN (14:10)
[2018-06-26] MEDS ORDERED: ceFAZolin 2 GM/50 ML 2 GM/50 ML BAG IV SCH (14:15)
[2018-06-26] MEDS ORDERED: LABETALOL 20 MG/4 ML SYRINGE IVP ONE (15:09)
--- NOTE | 2018-06-26 15:11 | XRAY Report ---
Reason: post op Procedure Date: 06/26/2018 Accession Number: [id number] / [id number] Procedure: XR - Shoulder 1 View LT CPT Code: FULL RESULT: EXAM: LEFT SHOULDER RADIOGRAPHY EXAM DATE: 06/26/2018 02:42 PM. CLINICAL HISTORY: Post op. COMPARISON: SHOULDER 3 VIEW LT 06/14/2018 11:08 AM. TECHNIQUE: 1 view. FINDINGS: The patient is status post interval left humeral arthroplasty. On the submitted single view, there is no evidence of hardware failure. IMPRESSION: Interval arthroplasty. RADIA
[2018-06-26] MEDS ORDERED: ROPIVACAINE 0.5% PF 20 ML AMPULE ONE (15:52)
[2018-06-26] MEDS ORDERED: NICOTINE 7 MG PATCH TOP SCH (17:00)
[2018-06-26 17:30] LABS: BASOPHILS % (AUTO) 0.2 %; EOSINOPHILS % (AUTO) 0.1 %; HGB - HEMOGLOBIN 12.5 g/dL (12.0-16.0); LYMPHOCYTES # (AUTO) 0.6 10^3/uL (1.5-3.5); LYMPHOCYTES % (AUTO) 6.3 %; MEAN CORPUSCULAR HEMOGLOBIN 29.6 pg (27.0-31.0); MEAN CORPUSCULAR HGB CONC 32.5 g/dL (32.0-36.0); MEAN CORPUSCULAR VOLUME 90.9 fL (81.0-99.0); MONOCYTES # (AUTO) 0.4 10^3/uL (0.0-1.0); MONOCYTES % (AUTO) 4.4 %; NEUTROPHILS # (AUTO) 9.1 10^3/uL (1.5-6.6); PLT - PLATELET COUNT 232 10^3/uL (130-450); RED BLOOD COUNT 4.23 10^6/uL (4.20-5.40); RED CELL DISTRIBUTION WIDTH 14.5 % (12.0-15.0); WHITE BLOOD COUNT 10.2 x10^3/uL (4.8-10.8)
[2018-06-26 17:41] LABS: ALBUMIN 3.2 g/dL (3.2-5.5); ALBUMIN/GLOBULIN RATIO 1.1 (1.0-2.2); BILIRUBIN,TOTAL 0.6 mg/dL (0.2-1.0); CALCIUM 8.1 mg/dL (8.5-10.3); CREATININE 0.6 mg/dL (0.4-1.0); MAGNESIUM 1.9 mg/dL (1.7-2.8); TOTAL PROTEIN 6.2 g/dL (6.7-8.2)
[2018-06-26] MEDS: SODIUM CHLORIDE 0.45% 1,000 ML IV SCH (18:15)
[2018-06-26] MEDS: POTASSIUM CHLORIDE 10 MEQ CAPSULE PO SCH (18:16)
[2018-06-26] MEDS: SODIUM CHLORIDE FLUSH 0.9% 10 ML SYRINGE IVP SCH ×2 (18:16→23:24)
--- NOTE | 2018-06-26 19:13 | CONSULTATION NOTE ---
DATE OF SERVICE: 06/26/2018 Physician: Isis Mcwilliams MD HISTORY OF PRESENT ILLNESS: This is an 88-year-old white female with a history of coronary artery disease, chronic atrial fibrillation, on Eliquis, rectal cancer with chemo and radiation in her past, osteoarthritis, hypothyroidism, history of COPD, history of GI bleeding, and vision loss. The patient states that she went to see her Hotel General Manager for a routine visit approximately a month ago because she had not been to him for about 3 years. There had been leg edema. She was started on triamterene/HCTZ. The patient had also already been on Eliquis, but had stopped taking it as she ran out for approximately 3 weeks, and this was resumed at that same visit 1 month ago. The patient has a history of prior falls, requiring orthopedic surgery to her wrist. She also fell in May, refused to be seen in the ER after the first fall, and was seen after a second fal. The result was a fracture of her left shoulder. She went to see Orthopedics as an outpatient and was scheduled for elective shoulder surgery on the left humerus fracture, which was done today. She had preop labs done 3 days ago which were stable. She underwent her elective left shoulder surgery today, and apparently on telemetry, she was noted to have either V-tach or Torsades de Pointes, and therefore this Hospitalist consult was called. A rhythm strip was printed out and is available to me, it does show what appears to be a very rapid wide complex tachycardia with an undulating pattern, consistent with possible Torsades, and it stopped spontaneously. The Orthopedist described to me that the patient was being moved at this point, and this may have been artifact. The anesthesia record does not indicate any areas where she was hypotensive, persistently tachycardic, or had any mention of this dysrhythmia at all. She had an EKG done in the postanesthesia recovery room area, which showed atrial fibrillation at a controlled rate of [address] or T-wave changes. The patient denies to me getting anginal pain, she denies dyspnea on exertion. She thinks that her leg edema got better by taking the prescribed HCTZ/triamterene over the last 1 month. She states that she has had falls in the past, but they are never associated with syncope, simply from mechanical falls. She has never had syncope in her life. PAST MEDICAL HISTORY: Atrial fibrillation, on chronic Eliquis, but she had run out 1 month ago for about 3 weeks, hypothyroidism on replacement, history of CAD, history of COPD, history of remote GI bleed, history of vision loss, history of prior falls and prior fractures, history of rectal cancer with chemotherapy and radiation, DJD history. ALLERGIES: CIPRO AND SULFA. MEDICATIONS 1. Eliquis 2.5 b.i.d. 2. Triamterene/HCTZ 1 tablet daily. 3. Potassium chloride 10 mEq b.i.d. 4. Vitamin D3, 3000 units daily. 5. Vitamin C 500 mg daily. 6. Kenalog topical cream p.r.n. 7. Trazodone 100 mg every night. 8. Mupirocin topically b.i.d. p.r.n. 9. Methenamine 1 gram p.o. b.i.d. 10. Synthroid 50 mcg p.o. daily. FAMILY HISTORY: No inherited diseases. SOCIAL HISTORY: She lives with her . She is a nonsmoker, drinks no alcohol. REVIEW OF SYSTEMS: A comprehensive review of systems was performed, and the pertinent positives are listed above, the rest are negative. PHYSICAL EXAMINATION GENERAL: Elderly white female. She is in no distress. She appears younger than her age. VITAL SIGNS: Blood pressure 145/70, heart rate in the 70s-80s, in atrial fibrillation, afebrile, room air saturation 97%. HEENT: Unremarkable. NECK: Without JVD or carotid bruits. CHEST: Clear. CARDIOVASCULAR: Heart sounds are distant, irregular. No audible murmur. No RV heave. ABDOMEN: Soft with positive bowel sounds. EXTREMITIES: Trace ankle edema. No clubbing or cyanosis. The left shoulder is in a sling. NEUROLOGIC: Grossly intact, vision was not evaluated. LABORATORY DATA: Labs, which were done today, postop, and after her possible Torsades in the OR, show normal electrolytes. Normal BUN and creatinine. Magnesium normal at 1.9. Liver tests normal. Troponin not detectable. White blood count 10, hemoglobin 12, MCV 90, platelet count normal at 232. No INR is done because she is on Eliquis. EKG from today: Atrial fibrillation, rate 79, low voltage, left anterior fascicular block, poor R-wave progression, no ST or T-wave changes. This EKG is similar to her EKG from October 2015. IMPRESSION/DIAGNOSES 1. 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 2. Left humerus neck fracture, which had left hemiarthroplasty today. 3. Fall at home 1 month ago. 4. Rectal cancer history. 5. Degenerative joint disease. 6. Hypothyroidism. 7. Coronary artery disease history. 8. Chronic atrial fibrillation, on Eliquis. 9. History of chronic obstructive pulmonary disease. 10. History of gastrointestinal bleed. 11. History of vision loss. 12. Leg edema, improved on 1 month of diuretic. RECOMMENDATIONS: Continue with telemetry. Obtain troponins x3 to rule out an acute IN as the cause of the possible dysrhythmia. Follow her potassium, magnesium, and phosphate daily, and correct if low. Obtain an Echo to establish LV and RV contractility, follow her EKG for any changes tomorrow. Continue with management of her pain for the recent surgery, her low dose of diuretic for her leg edema. If the Echo, EKG, and troponins are stable, the telemetry finding in the OR potentially could have been an artifact and would not need any further acute management. Cardiology followup is then recommended as an outpatient after her discharge. Consider orthostatic vital sign checks because of her repeat falls. Start PT evaluation and for rehabilitation and she is interested in SNF for PT rehabilitation, she tells me. CODE STATUS: FULL CODE, but she wishes to be DO NOT INTUBATE. DEEP VENOUS THROMBOSIS PROPHYLAXIS: As per Orthopedics. ATTESTATION: The patient is expected to be discharged or transferred to another facility within 96 hours: Yes. cc: MD David Lindsay MD TD: 06/26/2018 18:28 [email or web address]
[2018-06-26] MEDS ORDERED: PHENOL THROAT SPRAY 177 ML MM PRN (19:53)
[2018-06-26] MEDS ORDERED: BENZOCAINE/MENTHOL LOZENGE MM PRN (19:53)
[2018-06-26] MEDS ORDERED: METHENAMINE HIPPURATE 1 GM PO SCH (21:00)
[2018-06-26] MEDS: APIXABAN 2.5 MG TABLET PO SCH (21:12)
[2018-06-26] MEDS: METHENAMINE HIPPURATE 1 GM PO SCH (21:12)
[2018-06-26] MEDS: traZODone 50 MG TABLET PO SCH (21:12)
--- NOTE | 2018-06-27 02:23 | OPERATIVE REPORT ---
DATE OF SERVICE: 06/26/2018 Physician: Renny Dempsey MD PREOPERATIVE DIAGNOSIS: Displaced 3-part left proximal humeral fracture. POSTOPERATIVE DIAGNOSIS: Displaced 3-part left proximal humeral fracture. PROCEDURE PERFORMED: Hemiarthroplasty of the left shoulder. OPERATING SURGEON: Renny Dempsey MD ANESTHESIA: General. Je Chiu. INDICATIONS FOR SURGERY: Patient is an 88-year-old female with a prior fracture of her left shoulde r approximately 5 weeks ago. This fracture initially was felt to be in acceptable position and over time has shown increasing malposition, especially of the humeral head in relation to the shaft and tu berosities, the patient's arm being essentially frozen at her side and painful. Because of this, I r ecommended that she undergo a hemiarthroplasty of her shoulder for reconstruction and pain relief. 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 The head had displaced into more of a varus position and angulated, and w ith fibrous union as well. This was actually somewhat difficult to pull apart and the head was not e paula articulating with the glenoid. The patient's bone density was poor and there was fragmentation. There were small amounts of comminution and scar tissue. DESCRIPTION OF OPERATIVE PROCEDURE: The patient was taken to the operating room. She was positioned beach chair. Her left shoulder was sterilely prepped and draped in a standard fashion. The patient was approached through a deltopectoral incision, mobilizing the cephalic vein to the medial side and retracting deltoid, and exposing the underlying interval down to the conjoined tendon, which was ret racted as well. This now exposed the fracture. The bicipital groove remained scarred over, and this groove was opened with scissors through the transverse ligament and along the course of the rotator interval. This exposed the displaced humeral head and allowed better mobilization of the greater and lesser tuberosities. Sutures were placed around these as they were pulled apart and mobilized, and the head ultimately was extracted uneventfully with a Jim. Once this had been extracted, it was m easured for size. The humeral shaft was exposed and a blunt reamer was placed down the humeral shaft , sizing up to a size 12 and then following with a size 11 broach and correcting at 30 degrees of ret roversion. The 12 broach was placed, but could not be fully seated, and the 11 seemed satisfactory a nd seated well enough that it was accepted. This was to be placed cementless with the Miri compreh ensive system, placing a size 11 stem in appropriate version, followed by trial head sizes, ultimatel y using a 21 mm head in appropriate alignment and standard offset. This pointed right at the glenoid and yielded good range of motion, and seemed to restore height as measured from the upper attachment of the pectoralis, yielding 5.5 cm to the top of the head. With appropriate sutures in place for re pair, the humeral head was applied, impacted and then the tuberosities were brought together with Fib erWire [id number] and passing sutures, and these affected a very good repair over a morselized g raft, placed against the component on its ingrowth surface. The range of motion of the shoulder was good following this, and stability was good. Excursion on the glenoid face 50% posterior, anterior a nd inferior, which seemed very acceptable. The wound was flushed and irrigated. Closure was with in terrupted 4-0 Vicryl in the subcutaneous tissues, advancing to 4-0 Monocryl in the skin, and sterile dressings were applied and a sling was applied. The patient was then taken to the recovery room in s table condition. Estimated blood loss was minimal, perhaps no more than 50-60 mL. Intraoperative du ring prep, the patient had a heart rate irregularity that was felt either to be due to loose leads or to a eliz ora run of some type of tachycardia and, for this reason, postoperatively, a hospital con sult and cardiac monitoring were ordered. The patient is to be on antibiotics and resting in a sling , and hospitalized for general care. TD: 06/26/2018 16:24
[2018-06-27] MEDS: SODIUM CHLORIDE 0.45% 1,000 ML IV SCH ×2 (04:12→14:28)
[2018-06-27 05:39] LABS: HGB - HEMOGLOBIN 11.5 g/dL (12.0-16.0)
[2018-06-27 05:47] LABS: CALCIUM 7.9 mg/dL (8.5-10.3); CREATININE 0.6 mg/dL (0.4-1.0); MAGNESIUM 1.7 mg/dL (1.7-2.8)
[2018-06-27] MEDS: LEVOTHYROXINE 25 MCG TABLET PO SCH (05:56)
[2018-06-27] MEDS ORDERED: MAGNESIUM SULFATE 2 GRAM 2 GM/50 ML BAG IV ONE (06:56)
[2018-06-27] MEDS ORDERED: CALCIUM GLUCONATE 2,000 MG in SODIUM CHLORIDE 0.9% 100ML 100 ML IV ONE (08:00)
--- NOTE | 2018-06-27 08:04 | PROVIDER PROGRESS NOTE ---
Subjective - General Admit Date: 06/26/18 Procedure Date: 06/26/18 Post Op Days: 1 Procedure Performed: left shoulder hemiarthroplasty - Review of Systems Wound/Incisions: positive: Dressing dry and intact Objective - Patient Data Reviewed Vital Signs: Yes Vital Signs: Vital Signs x48h Temp Pulse Resp BP Pulse Ox 06/27/18 07:40 36.8 C 87 16 112/53 L 96 06/27/18 05:25 36.8 C 86 16 125/61 95 Weight: Weight 06/25/18 06/26/18 06/27/18 23:59 23:59 23:59 Weight (kg) 63 kg Intake & Output: Intake and Output Totals x24h 06/25/18 06/26/18 06/27/18 23:59 23:59 23:59 Intake Total 2076 1145 Output Total 735 100 Balance 1341 1045 - Lab Results Lab Results: 06/27/18 05:27 06/27/18 05:27 Other Lab Results: Lab Results x24hrs 06/27/18 06/27/18 06/27/18 Range/Units 05:27 05:27 05:27 WBC (4.8-10.8) x10^3/uL RBC (4.20-5.40) 10^6/uL Hgb 11.5 L (12.0-16.0) g/dL Hct 35.4 L (37.0-47.0) % MCV (81.0-99.0) fL MCH (27.0-31.0) pg MCHC (32.0-36.0) g/dL RDW (12.0-15.0) % Plt Count (130-450) 10^3/uL MPV (7.9-10.8) fL Neut # (Auto) (1.5-6.6) 10^3/uL Lymph # (Auto) (1.5-3.5) 10^3/uL Bowman # (Auto) (0.0-1.0) 10^3/uL Eos # (Auto) (0.0-0.7) 10^3/uL Baso # (Auto) (0.0-0.1) 10^3/uL Absolute Nucleated RBC x10^3/uL Nucleated RBC % /100WBC Sodium (135-145) mmol/L Potassium (3.5-5.0) mmol/L Chloride (101-111) mmol/L Carbon Dioxide (21-32) mmol/L Anion Gap (6-13) BUN (6-20) mg/dL Creatinine (0.4-1.0) mg/dL Estimated GFR (MDRD) (>89) Glucose (70-100) mg/dL Calcium (8.5-10.3) mg/dL Phosphorus (2.5-4.6) mg/dL Magnesium (1.7-2.8) mg/dL Total Bilirubin (0.2-1.0) mg/dL AST (10-42) IU/L ALT (10-60) IU/L Alkaline Phosphatase (42-121) IU/L Troponin I < 0.04 (<0.49) ng/mL Total Protein (6.7-8.2) g/dL Albumin (3.2-5.5) g/dL Globulin (2.1-4.2) g/dL Albumin/Globulin Ratio (1.0-2.2) TSH 0.50 (0.34-5.60) uIU/mL 06/27/18 06/26/18 06/26/18 Range/Units 05:27 23:05 17:25 WBC (4.8-10.8) x10^3/uL RBC (4.20-5.40) 10^6/uL Hgb (12.0-16.0) g/dL Hct (37.0-47.0) % MCV (81.0-99.0) fL MCH (27.0-31.0) pg MCHC (32.0-36.0) g/dL RDW (12.0-15.0) % Plt Count (130-450) 10^3/uL MPV (7.9-10.8) fL Neut # (Auto) (1.5-6.6) 10^3/uL Lymph # (Auto) (1.5-3.5) 10^3/uL Bowman # (Auto) (0.0-1.0) 10^3/uL Eos # (Auto) (0.0-0.7) 10^3/uL Baso # (Auto) (0.0-0.1) 10^3/uL Absolute Nucleated RBC x10^3/uL Nucleated RBC % /100WBC Sodium 133 L (135-145) mmol/L Potassium 4.1 (3.5-5.0) mmol/L Chloride 101 (101-111) mmol/L Carbon Dioxide 23 (21-32) mmol/L Anion Gap 9.0 (6-13) BUN 14 (6-20) mg/dL Creatinine 0.6 (0.4-1.0) mg/dL Estimated GFR (MDRD) 94 (>89) Glucose 128 H (70-100) mg/dL Calcium 7.9 L (8.5-10.3) mg/dL Phosphorus 4.0 (2.5-4.6) mg/dL Magnesium 1.7 (1.7-2.8) mg/dL Total Bilirubin (0.2-1.0) mg/dL AST (10-42) IU/L ALT (10-60) IU/L Alkaline Phosphatase (42-121) IU/L Troponin I < 0.04 (<0.49) ng/mL Total Protein (6.7-8.2) g/dL Albumin (3.2-5.5) g/dL Globulin (2.1-4.2) g/dL Albumin/Globulin Ratio (1.0-2.2) TSH (0.34-5.60) uIU/mL 06/26/18 06/26/18 06/26/18 Range/Units 17:25 17:24 17:24 WBC 10.2 (4.8-10.8) x10^3/uL RBC 4.23 (4.20-5.40) 10^6/uL Hgb 12.5 (12.0-16.0) g/dL Hct 38.5 (37.0-47.0) % MCV 90.9 (81.0-99.0) fL MCH 29.6 (27.0-31.0) pg MCHC 32.5 (32.0-36.0) g/dL RDW 14.5 (12.0-15.0) % Plt Count 232 (130-450) 10^3/uL MPV 8.0 (7.9-10.8) fL Neut # (Auto) 9.1 H (1.5-6.6) 10^3/uL Lymph # (Auto) 0.6 L (1.5-3.5) 10^3/uL Bowman # (Auto) 0.4 (0.0-1.0) 10^3/uL Eos # (Auto) 0.0 (0.0-0.7) 10^3/uL Baso # (Auto) 0.0 (0.0-0.1) 10^3/uL Absolute Nucleated RBC 0.00 x10^3/uL Nucleated RBC % 0.0 /100WBC Sodium 136 (135-145) mmol/L Potassium 3.9 (3.5-5.0) mmol/L Chloride 102 (101-111) mmol/L Carbon Dioxide 25 (21-32) mmol/L Anion Gap 9.0 (6-13) BUN 14 (6-20) mg/dL Creatinine 0.6 (0.4-1.0) mg/dL Estimated GFR (MDRD) 94 (>89) Glucose 136 H (70-100) mg/dL Calcium 8.1 L (8.5-10.3) mg/dL Phosphorus (2.5-4.6) mg/dL Magnesium 1.9 (1.7-2.8) mg/dL Total Bilirubin 0.6 (0.2-1.0) mg/dL AST 26 (10-42) IU/L ALT 13 (10-60) IU/L Alkaline Phosphatase 100 (42-121) IU/L Troponin I < 0.04 (<0.49) ng/mL Total Protein 6.2 L (6.7-8.2) g/dL Albumin 3.2 (3.2-5.5) g/dL Globulin 3.0 (2.1-4.2) g/dL Albumin/Globulin Ratio 1.1 (1.0-2.2) TSH (0.34-5.60) uIU/mL - Current Medications Current Medications: Current Medications Generic Name Dose Route Start Last Admin Trade Name Freq PRN Reason Stop Dose Admin Apixaban 2.5 mg 06/26/18 21:00 06/26/18 21:12 Eliquis PO 2.5 mg BID JACQUELINE Administration Sodium Chloride 1,000 mls @ 100 mls/hr 06/26/18 15:00 06/27/18 04:12 Normal Saline 0.45% IV 100 mls/hr .Q10H JACQUELIEN Administration Levothyroxine Sodium 50 mcg 06/27/18 07:00 06/27/18 05:56 Synthroid PO 50 mcg QDAC JACQUELINE Administration Methenamine 1 each 06/26/18 21:00 06/26/18 21:12 Hippurate [ PO 1 each Methenamine BID JACQUELINE Administration Hippurate] 1 Gm Phenol/Menthol 2 sprays 06/26/18 19:53 06/26/18 21:12 Chloraseptic MM 2 sprays Q2HR PRN Administration Throat Pain Potassium Chloride 10 meq 06/26/18 17:00 06/26/18 18:16 Micro-K PO 10 meq BIDWM JACQUELINE Administration Sodium Chloride 10 ml 06/26/18 17:00 06/26/18 23:24 Normal Saline Flush 0.9% IVP Not Given 0100,0900,1700 JACQUELINE Trazodone HCl 100 mg 06/26/18 21:00 06/26/18 21:12 Desyrel PO 100 mg QPM JACQUELINE Administration Impression/Plan - Problem List Problem List: POD #1
[2018-06-27] MEDS: HYDROcod/ACETAM 5/325 MG TABLET PO PRN ×4 (08:19→20:28)
[2018-06-27] MEDS: APIXABAN 2.5 MG TABLET PO SCH ×2 (08:20→20:28)
[2018-06-27] MEDS: ASCORBIC ACID CHEW 500 MG TABLET PO SCH (08:20)
[2018-06-27] MEDS: CHOLECALCIFEROL 1,000 UNIT TABLET PO SCH (08:20)
[2018-06-27] MEDS: POTASSIUM CHLORIDE 10 MEQ CAPSULE PO SCH ×2 (08:21→17:44)
[2018-06-27] MEDS: METHENAMINE HIPPURATE 1 GM PO SCH ×2 (08:22→20:29)
[2018-06-27] MEDS: TRIAMT/HCTZ 37.5 MG/25 MG CAPSULE PO SCH (10:17)
--- NOTE | 2018-06-27 10:30 | PROVIDER PROGRESS NOTE ---
Assessment/Plan - Problem List (1) Torsades de pointes Assessment/Plan: She had normal troponins x3, normal K, Phos, Mg and Calcium yesterday. The Echo is still pending. Telemetry has not shown any further Torsades or VTach. If the Echo us stable, no med changes planned. Continue telemetry while here. (2) Fx humeral neck Assessment/Plan: POD #1. 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 She is > 85 y/o, and does not need to have the CMS advised W/U for osteoporosis. (3) Fall at home Assessment/Plan: Will order orthostatic VS checks. PT and OT, as above. Continue telemetry. (4) DJD (degenerative joint disease) Assessment/Plan: PT and OT eval will also establish is she has limited ability due to DJD pain. (5) Chronic a-fib Assessment/Plan: On telemetry her HR has been stable. Continue Wliquis for CVA prophylaxis. (6) Hx of coronary artery disease Assessment/Plan: Neg labs for NH, no angina. (7) Hypothyroidism Assessment/Plan: Her TSH was acceptable, indicating a correct Synthroid dose and ruling out Hyperthyroidism as the cause of the (possible) Torsades. (8) Leg edema Assessment/Plan: Electrolytes, Mg and creat are stable on the current daily diuretic. The Echo is pending to evaluate the cause of her significant leg edema. - Current Meds Current Meds: Current Medications Generic Name Dose Route Start Last Admin Trade Name Freq PRN Reason Stop Dose Admin Hydrocodone Bitart/Acetaminophen 1 tab 06/26/18 14:03 06/27/18 08:19 [place] 5/325 PO 1 tab Q4HR PRN Administration PAIN Apixaban 2.5 mg 06/26/18 21:00 06/27/18 08:20 Eliquis PO 2.5 mg BID JACQUELINE Administration Ascorbic Acid 500 mg 06/27/18 09:00 06/27/18 08:20 Vitamin C PO 500 mg DAILY JACQUELINE Administration Cholecalciferol 3,000 unit 06/27/18 09:00 06/27/18 08:20 Vitamin D3 PO 3,000 unit DAILY JACQUELINE Administration Hydromorphone HCl 0.5 mg 06/26/18 14:03 06/27/18 10:17 Dilaudid Inj Syringe IVP 0.5 mg Q2H PRN Administration PAIN Acetaminophen 100 mls @ 400 mls/hr 06/26/18 14:03 06/27/18 08:32 Ofirmev IV Infused Q6HR PRN Infusion PAIN Sodium Chloride 1,000 mls @ 100 mls/hr 06/26/18 15:00 06/27/18 04:12 Normal Saline 0.45% IV 100 mls/hr .Q10H JACQUELINE Administration Levothyroxine Sodium 50 mcg 06/27/18 07:00 06/27/18 05:56 Synthroid PO 50 mcg QDAC JACQUELINE Administration Methenamine 1 each 06/26/18 21:00 06/27/18 08:22 Hippurate [ PO 1 each Methenamine BID JACQUELINE Administration Hippurate] 1 Gm Phenol/Menthol 2 sprays 06/26/18 19:53 06/26/18 21:12 Chloraseptic MM 2 sprays Q2HR PRN Administration Throat Pain Potassium Chloride 10 meq 06/26/18 17:00 06/27/18 08:21 Micro-K PO 10 meq BIDWM JACQUELINE Administration Sodium Chloride 10 ml 06/26/18 17:00 06/26/18 23:24 Normal Saline Flush 0.9% IVP Not Given 0100,0900,1700 JACQUELINE Trazodone HCl 100 mg 06/26/18 21:00 06/26/18 21:12 Desyrel PO 100 mg QPM JACQUELINE Administration Triamterene/HCTZ 1 cap 06/27/18 09:00 06/27/18 10:17 Dyazide PO 1 cap DAILY JACQUELINE Administration - Lab Result Fish Bone Diagrams: 06/27/18 05:27 06/27/18 05:27 - Additional Planning My Orders: My Active Orders 06/26/18 18:04 Miscellaenous Nursing Order [RC] QSHIFT 06/27/18 Evaluate and Treat OT [OT] Routine Evaluate and Treat PT [PT] Routine 06/27/18 08:00 Echo Transthoracic Complete [ECHO] Routine 06/27/18 09:17 Postural [Vital Signs - Orthostatic] [RC] DAILY Subjective - Subjective Patient Reports: Feeling Better Objective Vital Signs: Vital Signs - 24 hr 06/26/18 06/26/18 06/26/18 10:35 14:00 14:05 Temperature 36.5 C 36.2 C L 36.2 C L Heart Rate 96 103 H 102 H Heart Rate [ Monitoring electrodes] Respiratory 18 18 17 Rate Blood Pressure 147/95 H 129/78 159/104 H Blood Pressure [Right Ankle] Blood Pressure [Right Brachial artery] O2 Saturation 98 100 100 06/26/18 06/26/18 06/26/18 14:10 14:15 14:30 Temperature 36.2 C L 36.4 C L 36.4 C L Heart Rate 96 95 93 Heart Rate [ Monitoring electrodes] Respiratory 15 16 12 Rate Blood Pressure 151/123 H 170/95 H 177/90 H Blood Pressure [Right Ankle] Blood Pressure [Right Brachial artery] O2 Saturation 98 99 98 06/26/18 06/26/18 06/26/18 14:45 15:00 15:12 Temperature 36.4 C L 36.6 C 36.6 C Heart Rate 85 90 69 Heart Rate [ Monitoring electrodes] Respiratory 18 14 10 L Rate Blood Pressure 146/78 H 159/80 H 131/75 H Blood Pressure [Right Ankle] Blood Pressure [Right Brachial artery] O2 Saturation 99 97 100 06/26/18 06/26/18 06/26/18 15:17 15:30 15:45 Temperature 36.6 C 36.6 C 36.4 C L Heart Rate 72 78 Heart Rate [ 77 Monitoring electrodes] Respiratory 16 12 16 Rate Blood Pressure 147/74 H 141/78 H Blood Pressure 149/75 H [Right Ankle] Blood Pressure [Right Brachial artery] O2 Saturation 100 98 98 06/26/18 06/26/18 06/26/18 16:15 16:45 17:45 Temperature 36.3 C L 36.4 C L 36.5 C Heart Rate Heart Rate [ 80 75 91 Monitoring electrodes] Respiratory 20 16 16 Rate Blood Pressure Blood Pressure 145/87 H 138/78 H 123/76 [Right Ankle] Blood Pressure [Right Brachial artery] O2 Saturation 97 96 97 06/26/18 06/26/18 06/26/18 18:45 21:56 23:50 Temperature 36.4 C L 36.6 C 36.8 C Heart Rate Heart Rate [ 75 71 87 Monitoring electrodes] Respiratory 16 20 16 Rate Blood Pressure Blood Pressure 135/77 H 123/64 [Right Ankle] Blood Pressure 106/70 [Right Brachial artery] O2 Saturation 97 96 95 06/27/18 06/27/18 05:25 07:40 Temperature 36.8 C 36.8 C Heart Rate Heart Rate [ 86 87 Monitoring electrodes] Respiratory 16 16 Rate Blood Pressure Blood Pressure [Right Ankle] Blood Pressure 125/61 112/53 L [Right Brachial artery] O2 Saturation 95 96 Oxygen O2 Source Room air I&O (Last 24 Hrs): Intake and Output Totals x24h 06/25/18 06/26/18 06/27/18 23:59 23:59 23:59 Intake Total 2076 1725 Output Total 735 100 Balance 1341 1625 General: Alert, Oriented x3 HEENT: Mucous membr. moist/pink, Other (Cheeks flushed) Neck: Supple Neuro: Non Focal Cardiovascular: No murmurs Respiratory: No respiratory distress Abdomen: Soft Extremities: No edema - Results Results: Laboratory Results WBC 10.2 x10^3/uL (4.8-10.8) 06/26/18 17:24 RBC 4.23 10^6/uL (4.20-5.40) 06/26/18 17:24 Hgb 11.5 g/dL (12.0-16.0) L 06/27/18 05:27 Hct 35.4 % (37.0-47.0) L 06/27/18 05:27 MCV 90.9 fL (81.0-99.0) 06/26/18 17:24 MCH 29.6 pg (27.0-31.0) 06/26/18 17:24 MCHC 32.5 g/dL (32.0-36.0) 06/26/18 17:24 RDW 14.5 % (12.0-15.0) 06/26/18 17:24 Plt Count 232 10^3/uL (130-450) 06/26/18 17:24 MPV 8.0 fL (7.9-10.8) 06/26/18 17:24 Neut # (Auto) 9.1 10^3/uL (1.5-6.6) H 06/26/18 17:24 Lymph # (Auto) 0.6 10^3/uL (1.5-3.5) L 06/26/18 17:24 [place] # (Auto) 0.4 10^3/uL (0.0-1.0) 06/26/18 17:24 Eos # (Auto) 0.0 10^3/uL (0.0-0.7) 06/26/18 17:24 Baso # (Auto) 0.0 10^3/uL (0.0-0.1) 06/26/18 17:24 Absolute Nucleated RBC 0.00 x10^3/uL 06/26/18 17:24 Nucleated RBC % 0.0 /100WBC 06/26/18 17:24 Sodium 133 mmol/L (135-145) L 06/27/18 05:27 Potassium 4.1 mmol/L (3.5-5.0) 06/27/18 05:27 Chloride 101 mmol/L (101-111) 06/27/18 05:27 Carbon Dioxide 23 mmol/L (21-32) 06/27/18 05:27 Anion Gap 9.0 (6-13) 06/27/18 05:27 BUN 14 mg/dL (6-20) 06/27/18 05:27 Creatinine 0.6 mg/dL (0.4-1.0) 06/27/18 05:27 Estimated GFR (MDRD) 94 (>89) 06/27/18 05:27 Glucose 128 mg/dL (70-100) H 06/27/18 05:27 Calcium 7.9 mg/dL (8.5-10.3) L 06/27/18 05:27 Phosphorus 4.0 mg/dL (2.5-4.6) 06/26/18 17:25 Magnesium 1.7 mg/dL (1.7-2.8) 06/27/18 05:27 Total Bilirubin 0.6 mg/dL (0.2-1.0) 06/26/18 17:25 AST 26 IU/L (10-42) 06/26/18 17:25 ALT 13 IU/L (10-60) 06/26/18 17:25 Alkaline Phosphatase 100 IU/L (42-121) 06/26/18 17:25 Troponin I < 0.04 ng/mL (<0.49) 06/27/18 05:27 Total Protein 6.2 g/dL (6.7-8.2) L 06/26/18 17:25 Albumin 3.2 g/dL (3.2-5.5) 06/26/18 17:25 Globulin 3.0 g/dL (2.1-4.2) 06/26/18 17:25 Albumin/Globulin Ratio 1.1 (1.0-2.2) 06/26/18 17:25 TSH 0.50 uIU/mL (0.34-5.60) 06/27/18 05:27 - Procedures Procedures: Procedures REPOSITION LEFT RADIUS WITH INT FIX, PERC APPROACH (08/17/17)
[2018-06-27] MEDS: POLYETHYLENE GLYCOL 3350 17 GM PACKET PO SCH (12:33)
[2018-06-27] MEDS: SENNA 8.6 MG TABLET PO PRN (12:34)
[2018-06-27] MEDS: SODIUM CHLORIDE FLUSH 0.9% 10 ML SYRINGE IVP SCH ×2 (14:29→17:39)
[2018-06-27] MEDS: traZODone 50 MG TABLET PO SCH (20:28)
[2018-06-27] MEDS: ceFAZolin 2 GM in SODIUM CHLORIDE 0.9% 100ML 100 ML IV SCH (20:38)
[2018-06-28] MEDS: SODIUM CHLORIDE FLUSH 0.9% 10 ML SYRINGE IVP SCH ×4 (00:19→23:47)
[2018-06-28] MEDS: SODIUM CHLORIDE 0.45% 1,000 ML IV SCH (00:43)
[2018-06-28] MEDS: ceFAZolin 2 GM in SODIUM CHLORIDE 0.9% 100ML 100 ML IV SCH (04:24)
[2018-06-28] MEDS: HYDROcod/ACETAM 5/325 MG TABLET PO PRN ×4 (04:38→23:36)
[2018-06-28] MEDS: LEVOTHYROXINE 25 MCG TABLET PO SCH (06:05)
--- NOTE | 2018-06-28 07:50 | PROVIDER PROGRESS NOTE ---
Subjective - General Admit Date: 06/26/18 Procedure Date: 06/26/18 Post Op Days: 2 Procedure Performed: left shoulder hemiarthroplasty - Review of Systems Wound/Incisions: positive: Healing well General: positive: Other (shoulder pain Left.) Musculoskeletal: positive: Joint pain, Joint swelling Psychiatric: positive: No symptoms Objective - Patient Data Reviewed Vital Signs: Yes Vital Signs: Vital Signs x48h Temp Pulse Resp BP BP Pulse Ox 06/28/18 07:47 36.5 C 103 H 16 127/79 97 06/28/18 04:20 36.5 C 90 18 134/80 H 96 06/28/18 00:23 36.3 C L 120 H 21 134/90 H 97 Weight: Weight 06/26/18 06/27/18 06/28/18 23:59 23:59 23:59 Weight (kg) 63 kg Intake & Output: Intake and Output Totals x24h 06/26/18 06/27/18 06/28/18 23:59 23:59 23:59 Intake Total 2076 4048.667 458.333 Output Total 735 850 810 Balance 1341 3198.667 -351.667 - Lab Results Lab Results: 06/27/18 05:27 06/27/18 05:27 - Imaging Results Radiology Imaging: positive: EMP read indepedently - Current Medications Current Medications: Current Medications Generic Name Dose Route Start Last Admin Trade Name Freq PRN Reason Stop Dose Admin Acetaminophen 650 - 975 mg 06/26/18 14:03 06/28/18 00:22 Tylenol PO 650 mg Q4HR PRN Administration PAIN Hydrocodone Bitart/Acetaminophen 1 tab 06/26/18 14:03 06/28/18 04:38 [place] 5/325 PO 1 tab Q4HR PRN Administration PAIN Apixaban 2.5 mg 06/26/18 21:00 06/27/18 20:28 Eliquis PO 2.5 mg BID JACQUELINE Administration Ascorbic Acid 500 mg 06/27/18 09:00 06/27/18 08:20 Vitamin C PO 500 mg DAILY JACQUELINE Administration Cholecalciferol 3,000 unit 06/27/18 09:00 06/27/18 08:20 Vitamin D3 PO 3,000 unit DAILY JACQUELINE Administration Hydromorphone HCl 0.5 mg 06/26/18 14:03 06/27/18 10:17 Dilaudid Inj Syringe IVP 0.5 mg Q2H PRN Administration PAIN Acetaminophen 100 mls @ 400 mls/hr 06/26/18 14:03 06/27/18 08:32 Ofirmev IV Infused Q6HR PRN Infusion PAIN Sodium Chloride 1,000 mls @ 100 mls/hr 06/26/18 15:00 06/28/18 00:43 Normal Saline 0.45% IV 100 mls/hr .Q10H JACQUELINE Administration Levothyroxine Sodium 50 mcg 06/27/18 07:00 06/28/18 06:05 Synthroid PO 50 mcg QDAC JACQUELINE Administration Methenamine 1 each 06/26/18 21:00 06/27/18 20:29 Hippurate [ PO 1 each Methenamine BID JACQUELINE Administration Hippurate] 1 Gm Phenol/Menthol 2 sprays 06/26/18 19:53 06/26/18 21:12 Chloraseptic MM 2 sprays Q2HR PRN Administration Throat Pain Polyethylene Glycol 17 gm 06/27/18 12:00 06/27/18 12:33 Miralax PO 17 gm DAILY JACQUELINE Administration Potassium Chloride 10 meq 06/26/18 17:00 06/27/18 17:44 Micro-K PO 10 meq BIDWM JACQUELINE Administration Senna 17.2 mg 06/26/18 14:03 06/27/18 12:34 Senokot PO 17.2 mg Q12H PRN Administration Constipation Sodium Chloride 10 ml 06/26/18 17:00 06/28/18 00:19 Normal Saline Flush 0.9% IVP Not Given 0100,0900,1700 JACQUELINE Trazodone HCl 100 mg 06/26/18 21:00 06/27/18 20:28 Desyrel PO 100 mg QPM JACQUELINE Administration Triamterene/HCTZ 1 cap 06/27/18 09:00 06/27/18 10:17 Dyazide PO 1 cap DAILY JACQUELINE Administration - Physical Exam Wound/Incisions: positive: Healing well Eyes Bilateral: positive: Normal inspection Extremities: positive: Joint swelling Neurologic/Psychiatric: positive: Oriented x3, CN's nml (2-12), Motor nml, Sensation nml, Mood/affect nml Impression/Plan - Problem List Problem List: POD #2 Pt is doing better with pain control. Still not getting out of bed much. Heart status per Dr. Sosa seems stable on Tele. Plan for d/c tomorrow.
[2018-06-28] MEDS ORDERED: SODIUM CHLORIDE 0.45% 1,000 ML IV SCH (08:03)
[2018-06-28] MEDS: TRIAMT/HCTZ 37.5 MG/25 MG CAPSULE PO SCH (08:05)
[2018-06-28] MEDS: APIXABAN 2.5 MG TABLET PO SCH ×2 (08:05→21:00)
[2018-06-28] MEDS: ASCORBIC ACID CHEW 500 MG TABLET PO SCH (08:06)
[2018-06-28] MEDS: POTASSIUM CHLORIDE 10 MEQ CAPSULE PO SCH (08:06)
--- NOTE | 2018-06-28 08:06 | PROVIDER PROGRESS NOTE ---
Assessment/Plan - Problem List (1) Atrial fibrillation with RVR Assessment/Plan: She has had intermittent episodes, the past 2 days, with Afib with RVR, at rates of 101 - 120's. This is possibly due to post-op pain, no signs of fever at the time, therefore also consider volume depletion. Will stop her Triam/HCTZ, and she is also on iv fluids at 100 cc/hr, will decrease that slightly. Will also adjust meds to add Cardizem for rate control. Remain on telemetry. Not ready for DCh, since her meds are being adjusted. Continue Eliquis at present dose, as she is > 75 y/o and has wt < 70 kg. (2) Fall at home Assessment/Plan: In order to address her recurrent falls, I ordered orthostatic VS checks. She was not orthostatic yesterday, but was getting iv hydation then. Iv fluids will be decreased today and then stopped. Continue daily orthostatic VS checks. She may need Midodrine added and compressions stockings added. Also, awaiting PT eval regarding her gait, etc, as to why she has recurrent falls. 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 She has had recurrent falls at home and several have caused bone fractures; therefore this is not a safe discharge plan, to send her home. I will do an Advanced Care Plan with her today, to establish her wishes regarding living situation, how aggressive to be about medical management, determine her capability to make safe decisions, and a POLST needs to be completed for our records (she told me there is some form hanging on her home refrigerator). SW to see her regarding probable SNF for PT rehab and possible care home arrangement. (3) Fx humeral neck Assessment/Plan: POD #2. Continue pain meds prn and PT and OT. (4) DJD (degenerative joint disease) Assessment/Plan: As in #3. (5) Hx of coronary artery disease Assessment/Plan: Stable (6) Hypothyroidism Assessment/Plan: Continue on current meds. (7) Leg edema Assessment/Plan: Triamp/HCTZ to be stopped today, since it is adding to tachycardia. Will watch ankles for edema, and may use support stockings instead of diuretic, if pedal edema redevelops. (8) Torsades de pointes Assessment/Plan: No further episodes of Torsades seen. This may have been an artifact from patient motion, or being moved by OR staff. - Current Meds Current Meds: Current Medications Generic Name Dose Route Start Last Admin Trade Name Freq PRN Reason Stop Dose Admin Acetaminophen 650 - 975 mg 06/26/18 14:03 06/28/18 00:22 Tylenol PO 650 mg Q4HR PRN Administration PAIN Hydrocodone Bitart/Acetaminophen 1 tab 06/26/18 14:03 06/28/18 04:38 [place] 5/325 PO 1 tab Q4HR PRN Administration PAIN Apixaban 2.5 mg 06/26/18 21:00 06/27/18 20:28 Eliquis PO 2.5 mg BID JACQUELINE Administration Ascorbic Acid 500 mg 06/27/18 09:00 06/27/18 08:20 Vitamin C PO 500 mg DAILY JACQUELINE Administration Cholecalciferol 3,000 unit 06/27/18 09:00 06/27/18 08:20 Vitamin D3 PO 3,000 unit DAILY JACQUELINE Administration Hydromorphone HCl 0.5 mg 06/26/18 14:03 06/27/18 10:17 Dilaudid Inj Syringe IVP 0.5 mg Q2H PRN Administration PAIN Acetaminophen 100 mls @ 400 mls/hr 06/26/18 14:03 06/27/18 08:32 Ofirmev IV Infused Q6HR PRN Infusion PAIN Levothyroxine Sodium 50 mcg 06/27/18 07:00 06/28/18 06:05 Synthroid PO 50 mcg QDAC JACQUELINE Administration Methenamine 1 each 06/26/18 21:00 06/27/18 20:29 Hippurate [ PO 1 each Methenamine BID JACQUELINE Administration Hippurate] 1 Gm Phenol/Menthol 2 sprays 06/26/18 19:53 06/26/18 21:12 Chloraseptic MM 2 sprays Q2HR PRN Administration Throat Pain Polyethylene Glycol 17 gm 06/27/18 12:00 06/27/18 12:33 Miralax PO 17 gm DAILY JACQUELINE Administration Potassium Chloride 10 meq 06/26/18 17:00 06/27/18 17:44 Micro-K PO 10 meq BIDWM JACQUELINE Administration Senna 17.2 mg 06/26/18 14:03 06/27/18 12:34 Senokot PO 17.2 mg Q12H PRN Administration Constipation Sodium Chloride 10 ml 06/26/18 17:00 06/28/18 00:19 Normal Saline Flush 0.9% IVP Not Given 0100,0900,1700 JACQUELINE Trazodone HCl 100 mg 06/26/18 21:00 06/27/18 20:28 Desyrel PO 100 mg QPM JACQUELINE Administration Triamterene/HCTZ 1 cap 06/27/18 09:00 06/27/18 10:17 Dyazide PO 1 cap DAILY JACQUELINE Administration - Lab Result Fish Bone Diagrams: 06/27/18 05:27 06/27/18 05:27 - Additional Planning My Orders: My Active Orders 06/27/18 08:00 Echo Transthoracic Complete [ECHO] Routine 06/27/18 09:17 Postural [Vital Signs - Orthostatic] [RC] DAILY 06/27/18 12:00 Polyethylene Glycol 3350 [Miralax] 17 gm PO DAILY 06/28/18 08:03 Sodium Chloride 0.45% [Normal Saline 0.45%] 1,000 ml IV 40 mls/hr Subjective - Subjective Patient Reports: Feeling Better Objective Vital Signs: Vital Signs - 24 hr 06/27/18 06/27/18 06/27/18 12:44 12:46 15:15 Temperature 36.6 C Heart Rate [ 103 H Activity] Heart Rate [ 114 H Monitoring electrodes] Heart Rate [ 116 H Sitting (After 1 Minute)] Heart Rate [ 99 Sitting] Heart Rate [ 112 H Standing (After 1 Minute)] Heart Rate [ 116 H Standing] Heart Rate [ 114 H 105 H Supine] Respiratory 18 Rate Blood Pressure 123/81 H [Activity] Blood Pressure [Right Ankle] Blood Pressure 104/52 L [Right Brachial artery] Blood Pressure 109/73 [Sitting (After 1 Minute)] Blood Pressure 128/75 [Sitting] Blood Pressure 110/76 [Standing ( After 1 Minute) ] Blood Pressure 106/63 [Standing] Blood Pressure 104/52 L 125/66 [Supine] O2 Saturation 95 06/27/18 06/27/18 06/28/18 16:12 20:01 00:23 Temperature 36.5 C 36.3 C L 36.3 C L Heart Rate [ Activity] Heart Rate [ 84 97 120 H Monitoring electrodes] Heart Rate [ Sitting (After 1 Minute)] Heart Rate [ Sitting] Heart Rate [ Standing (After 1 Minute)] Heart Rate [ Standing] Heart Rate [ Supine] Respiratory 18 20 21 Rate Blood Pressure [Activity] Blood Pressure 134/90 H [Right Ankle] Blood Pressure 105/73 143/66 H [Right Brachial artery] Blood Pressure [Sitting (After 1 Minute)] Blood Pressure [Sitting] Blood Pressure [Standing ( After 1 Minute) ] Blood Pressure [Standing] Blood Pressure [Supine] O2 Saturation 95 95 97 06/28/18 06/28/18 04:20 07:47 Temperature 36.5 C 36.5 C Heart Rate [ Activity] Heart Rate [ 90 103 H Monitoring electrodes] Heart Rate [ Sitting (After 1 Minute)] Heart Rate [ Sitting] Heart Rate [ Standing (After 1 Minute)] Heart Rate [ Standing] Heart Rate [ Supine] Respiratory 18 16 Rate Blood Pressure [Activity] Blood Pressure 134/80 H [Right Ankle] Blood Pressure 127/79 [Right Brachial artery] Blood Pressure [Sitting (After 1 Minute)] Blood Pressure [Sitting] Blood Pressure [Standing ( After 1 Minute) ] Blood Pressure [Standing] Blood Pressure [Supine] O2 Saturation 96 97 Oxygen O2 Source Room air I&O (Last 24 Hrs): Intake and Output Totals x24h 06/26/18 06/27/18 06/28/18 23:59 23:59 23:59 Intake Total 2076 4048.667 458.333 Output Total 735 850 810 Balance 1341 3198.667 -351.667 General: Alert, Oriented x3 HEENT: Mucous membr. moist/pink, Other (Cheeks flushed vs rosacea.) Neuro: Alert, Non Focal Cardiovascular: No murmurs Respiratory: No respiratory distress Abdomen: Soft Extremities: No edema - Results Results: Laboratory Results WBC 10.2 x10^3/uL (4.8-10.8) 06/26/18 17:24 RBC 4.23 10^6/uL (4.20-5.40) 06/26/18 17:24 Hgb 11.5 g/dL (12.0-16.0) L 06/27/18 05:27 Hct 35.4 % (37.0-47.0) L 06/27/18 05:27 MCV 90.9 fL (81.0-99.0) 06/26/18 17:24 MCH 29.6 pg (27.0-31.0) 06/26/18 17:24 MCHC 32.5 g/dL (32.0-36.0) 06/26/18 17:24 RDW 14.5 % (12.0-15.0) 06/26/18 17:24 Plt Count 232 10^3/uL (130-450) 06/26/18 17:24 MPV 8.0 fL (7.9-10.8) 06/26/18 17:24 Neut # (Auto) 9.1 10^3/uL (1.5-6.6) H 06/26/18 17:24 Lymph # (Auto) 0.6 10^3/uL (1.5-3.5) L 06/26/18 17:24 [place] # (Auto) 0.4 10^3/uL (0.0-1.0) 06/26/18 17:24 Eos # (Auto) 0.0 10^3/uL (0.0-0.7) 06/26/18 17:24 Baso # (Auto) 0.0 10^3/uL (0.0-0.1) 06/26/18 17:24 Absolute Nucleated RBC 0.00 x10^3/uL 06/26/18 17:24 Nucleated RBC % 0.0 /100WBC 06/26/18 17:24 Sodium 133 mmol/L (135-145) L 06/27/18 05:27 Potassium 4.1 mmol/L (3.5-5.0) 06/27/18 05:27 Chloride 101 mmol/L (101-111) 06/27/18 05:27 Carbon Dioxide 23 mmol/L (21-32) 06/27/18 05:27 Anion Gap 9.0 (6-13) 06/27/18 05:27 BUN 14 mg/dL (6-20) 06/27/18 05:27 Creatinine 0.6 mg/dL (0.4-1.0) 06/27/18 05:27 Estimated GFR (MDRD) 94 (>89) 06/27/18 05:27 Glucose 128 mg/dL (70-100) H 06/27/18 05:27 Calcium 7.9 mg/dL (8.5-10.3) L 06/27/18 05:27 Phosphorus 4.0 mg/dL (2.5-4.6) 06/26/18 17:25 Magnesium 1.7 mg/dL (1.7-2.8) 06/27/18 05:27 Total Bilirubin 0.6 mg/dL (0.2-1.0) 06/26/18 17:25 AST 26 IU/L (10-42) 06/26/18 17:25 ALT 13 IU/L (10-60) 06/26/18 17:25 Alkaline Phosphatase 100 IU/L (42-121) 06/26/18 17:25 Troponin I < 0.04 ng/mL (<0.49) 06/27/18 05:27 Total Protein 6.2 g/dL (6.7-8.2) L 06/26/18 17:25 Albumin 3.2 g/dL (3.2-5.5) 06/26/18 17:25 Globulin 3.0 g/dL (2.1-4.2) 06/26/18 17:25 Albumin/Globulin Ratio 1.1 (1.0-2.2) 06/26/18 17:25 TSH 0.50 uIU/mL (0.34-5.60) 06/27/18 05:27 - Procedures Procedures: Procedures REPOSITION LEFT RADIUS WITH INT FIX, PERC APPROACH (08/17/17)
[2018-06-28] MEDS: POLYETHYLENE GLYCOL 3350 17 GM PACKET PO SCH (08:07)
[2018-06-28] MEDS: CHOLECALCIFEROL 1,000 UNIT TABLET PO SCH (08:07)
[2018-06-28] MEDS: METHENAMINE HIPPURATE 1 GM PO SCH ×2 (08:10→21:02)
[2018-06-28] MEDS ORDERED: diltiaZEM 30 MG TABLET PO ONE ×2 (09:25→21:04)
--- NOTE | 2018-06-28 10:30 | ADVANCE CARE PLANNING NOTE ---
Advance Care Planning - Date/Time Date: 06/28/18 Time: 09:00 - Purpose of encounter Text: To establish her wishes regarding aggressiveness of medical care, to establish her Code wishes, to determine her home care needs. - Parties in attendance Parties in attendance: I spoke to the patient alone in her room, at the very end, her RN, Regina, came in. - Decisional capacity Decisional capacity of: She has good memory and seems to be making appropriate decisions. - Subjective/Patient's story Subjective/Patient's story: Patient is a , her was 20 years older than her and has . She lives in a [facility] property in [place], and she rents the upper apartment to a single, retired male tenant for a decreased sum of money in exchange for him being her home upholstery cleaner every Monday and her laundry route driver to the grocery store and doctor's office and wherever she needs to go. She does her own laundry "occasionally". She does her own home cooking (she uses a portable burner placed on a countertop and she sits on a stool next to the counter to cook). The tenant takes her to go grocery shopping, using her car, approximately once a week. She has some children that are not in the immediate area, the daughter visits occasionally and helps. She has fallen several times in her apartment and thinks that she has simply "tripped and fell". She does admit that she is getting weaker over the past 3 years (the time that she has had the tenant who helps her). When I asked if she has ever thought about Assisted Living or Home Health Aides, she answers that she cannot afford it and that she doesn't want to leave her estate to her children, owing money. - Objective/Medical story Objective/Medical Story: Patient was scheduled for elective shoulder surgery after she suffered a fall and fractured her left humerus approximately 3 weeks ago. She has had multiple falls leading to several broken bones and several orthopedic surgeries including a prior wrist fracture. She has also fallen on the same left shoulder between the time of the first fracture and this elective surgery. She describes the falls to me as "tripping on the carpet" and denies syncope or lightheadedness causing the falls. During the orthopedic surgery, possible torsade de pointes was noted on telemetry and this Hospitalist consult was requested. The patient has een on telemetry, has had no recurrence of torsades or any VTach, she has ruled out for an NH, her Echo shows a normal LVEF, troponins were normal x3, her A. kendrick has had multiple episodes of RVR and medications are being adjusted. She is on Eliquis for anticoagulation and stroke prophylaxis, the dose is appropriate. Because of the recurrent falls, we are undertaking a work-up to evaluate for causes: Orthostasis was found today and her medications are being adjusted, SWAPNA compression/support stockings were ordered, she is deconditioned and has muscle weakness and will need physical therapy and occupational therapy, with the left arm in a sling post-op. - Goals of Care Goals of care determinations: She wants full medical management of her conditions. She wants no intubation, but wants to get CPR if she has a cardiac arrest. I asked if the CPR is not successful without ventilator support, would she want us to stop CPR. She said "Yes, after giving it a try". She wants to go to Rehab for PT and wishes to return home after that. Her set up currently is working for her: having the tenant drive her and clean her residence, but she wants to prepare her own meals (which she does using a portable burner and sits on a stool at the counter), because she "cannot afford more help." - Plan Plan: A POLST will be filled out and signed, tgzahira scanned into [employer]. She will be transferred to a SNF for PT and OT rehab when she is medically cleared for discharge from here. SW is working on her placement. - Code Status Code Status: Attempt Resuscitation - Time Spent on Advance Care Planning Time spent on advance care plannin min
[2018-06-28] MEDS: MIDODRINE 2.5 MG TABLET PO SCH ×3 (11:21→21:02)
[2018-06-28] MEDS: SENNA 8.6 MG TABLET PO PRN (17:08)
[2018-06-28] MEDS: traZODone 50 MG TABLET PO SCH (21:01)
[2018-06-29] MEDS: MIDODRINE 2.5 MG TABLET PO SCH (06:11)
[2018-06-29] MEDS: LEVOTHYROXINE 25 MCG TABLET PO SCH (06:11)
--- NOTE | 2018-06-29 09:11 | PROVIDER PROGRESS NOTE ---
Subjective - General Admit Date: 06/26/18 Procedure Date: 06/26/18 Post Op Days: 3 Procedure Performed: left shoulder hemiarthroplasty - Review of Systems Wound/Incisions: positive: Healing well Musculoskeletal: positive: Joint pain, Joint swelling Psychiatric: positive: No symptoms Objective - Patient Data Reviewed Vital Signs: Yes Vital Signs: Vital Signs x48h Temp Pulse Resp BP Pulse Ox 06/29/18 05:00 36.7 C 78 16 112/68 94 Intake & Output: Intake and Output Totals x24h 06/27/18 06/28/18 06/29/18 23:59 23:59 23:59 Intake Total 4048.667 2504.333 Output Total 850 1410 350 Balance 3198.667 1094.333 -350 - Lab Results Lab Results: 06/27/18 05:27 06/27/18 05:27 - Current Medications Current Medications: Current Medications Generic Name Dose Route Start Last Admin Trade Name Freq PRN Reason Stop Dose Admin Acetaminophen 650 - 975 mg 06/26/18 14:03 06/28/18 00:22 Tylenol PO 650 mg Q4HR PRN Administration PAIN Hydrocodone Bitart/Acetaminophen 1 tab 06/26/18 14:03 06/28/18 23:36 [place] 5/325 PO 1 tab Q4HR PRN Administration PAIN Apixaban 2.5 mg 06/26/18 21:00 06/28/18 21:00 Eliquis PO 2.5 mg BID JACQUELINE Administration Ascorbic Acid 500 mg 06/27/18 09:00 06/28/18 08:06 Vitamin C PO 500 mg DAILY JACQUELINE Administration Cholecalciferol 3,000 unit 06/27/18 09:00 06/28/18 08:07 Vitamin D3 PO 3,000 unit DAILY JACQUELINE Administration Diltiazem HCl 60 mg 06/28/18 09:00 06/28/18 21:01 Cardizem PO 60 mg BID JACQUELINE Administration Hydromorphone HCl 0.5 mg 06/26/18 14:03 06/27/18 10:17 Dilaudid Inj Syringe IVP 0.5 mg Q2H PRN Administration PAIN Acetaminophen 100 mls @ 400 mls/hr 06/26/18 14:03 06/27/18 08:32 Ofirmev IV Infused Q6HR PRN Infusion PAIN Sodium Chloride 1,000 mls @ 40 mls/hr 06/28/18 08:03 06/28/18 09:13 Normal Saline 0.45% IV 40 mls/hr .Q25H JACQUELINE Administration Levothyroxine Sodium 50 mcg 06/27/18 07:00 06/29/18 06:11 Synthroid PO 50 mcg QDAC JACQUELINE Administration Midodrine 2.5 mg 06/28/18 10:25 06/29/18 06:11 PO 2.5 mg TID JACQUELINE Administration Methenamine 1 each 06/26/18 21:00 06/28/18 21:02 Hippurate [ PO 1 each Methenamine BID JACQUELINE Administration Hippurate] 1 Gm Phenol/Menthol 2 sprays 06/26/18 19:53 06/26/18 21:12 Chloraseptic MM 2 sprays Q2HR PRN Administration Throat Pain Polyethylene Glycol 17 gm 06/27/18 12:00 06/28/18 08:07 Miralax PO 17 gm DAILY JACQUELINE Administration Senna 17.2 mg 06/26/18 14:03 06/28/18 17:08 Senokot PO 17.2 mg Q12H PRN Administration Constipation Sodium Chloride 10 ml 06/26/18 17:00 06/28/18 23:47 Normal Saline Flush 0.9% IVP Not Given 0100,0900,1700 JACQUELINE Trazodone HCl 100 mg 06/26/18 21:00 06/28/18 21:01 Desyrel PO 100 mg QPM JACQUELINE Administration Triamterene/HCTZ 1 cap 06/27/18 09:00 06/28/18 08:05 Dyazide PO 1 cap DAILY JACQUELINE Administration - Physical Exam General Appearance: positive: No acute distress Extremities: positive: Joint swelling Neurologic/Psychiatric: positive: Oriented x3, CN's nml (2-12), Motor nml, Se nsation nml Impression/Plan - Problem List Problem List: POD #3: This patient appears more comfortable. She is weak and fragile however. I have talked to her about the d/c plan and she is comfortable with the idea of going to SNF. She will remain in the sling for 6 wks. No exercises or passive motion will be done on the arm, but the left elbow may be straightened out prn, and careful showering with wound patted dry when needed. She will require Ortho f/u in the clinic on d/c from SNF at about 3-4 wks. The wound may be left uncovered.
[2018-06-29] MEDS ORDERED: diltiaZEM 30 MG TABLET PO ONE (10:05)
[2018-06-29] MEDS: CHOLECALCIFEROL 1,000 UNIT TABLET PO SCH (10:07)
[2018-06-29] MEDS: APIXABAN 2.5 MG TABLET PO SCH (10:08)
[2018-06-29] MEDS: TRIAMT/HCTZ 37.5 MG/25 MG CAPSULE PO SCH (10:10)
[2018-06-29] MEDS: ASCORBIC ACID CHEW 500 MG TABLET PO SCH (10:10)
[2018-06-29] MEDS: POLYETHYLENE GLYCOL 3350 17 GM PACKET PO SCH (10:10)
[2018-06-29] MEDS: METHENAMINE HIPPURATE 1 GM PO SCH (10:16)
[2018-06-29 10:18] VITALS: BP 120/64
[2018-06-29] MEDS: SODIUM CHLORIDE FLUSH 0.9% 10 ML SYRINGE IVP SCH (10:18)
--- NOTE | 2018-06-29 10:59 | Discharge Plan ---
"Discharge Plan for SNF / [facility] - Discharge Plan And Transition Orders Disposition: 03 SNF DC/Xfer Condition: Stable Allergies and Adverse Reactions: Allergies Allergy/AdvReac Type Severity Reaction Status Date / Time ciprofloxacin [From Cipro] AdvReac increased Verified 08/17/17 07:03 pain Sulfa (Sulfonamide AdvReac Nausea Verified 08/17/17 07:03 Antibiotics) - SNF / [facility] Transition Orders Admit to (Facility): [facility] Discharge Diagnosis: (1) Fracture of left humeral neck, S/P hemiarthroplasty (2) Fall at home (3) Torsades de pointes (4) Atrial fibrillation with RVR (5) Hx of coronary artery disease (6) Hypothyroidism (7) Leg edema (8) Orthostasis, when on diuretics (9) DJD (degenerative joint disease) (10) Code Status: Patient wants CPR but wants Do Not Intubate Medicare Certification Statement: I certify that Post Hospital long term care is medically necessary on a continuing basis for any of the conditions for which she/he is receiving care during hospitalization. Notify PCP of admission and forward orders to primary provider for signature. Weight on admission and: Weekly Call PCP immediately if weight increases by: 6 kg (If > 6 kg weight gain in a week) Other Notification Orders: Call PCP immediately if patient develops dyspnea, chest pain/tightness or edema. House Bowel Program: Yes Additional Bowel Program Orders: If no BM after 2 days, nurse may give M.O.M. 30ml PO PRN and/or ducolax Supp 1 TX and/or PORTER 250mg P.O., and/or senna 1-2 tabs PO. On day 3 nurse may give repeat above order until residents constipation is resolved. Annual Influenza Vaccine (between Nov 04 and June 03): Yes Two-step PPD per [facility] [id number] or approved exception documents: Yes Treatments & Other Orders: Daily PT and OT. Put SWAPNA stockings on daily in a.m, off at h.s. Oxygen Orders: None Orthopedic Orders: Remain in the sling for 6 wks. No exercises or passive motion should be done on the arm, but the left elbow may be straightened out prn, and careful showering with wound patted dry when needed. The wound may be left uncovered. Medication Orders: PLEASE REFER TO THE DISCHARGE MEDICATION LIST. Insulin Orders?: No - Medications New Prescriptions: HYDROcod/ACETAM 5/325 [[place] 5/325] 0.5 - 1 tab PO Q4HR PRN #10 tablet PRN Reason: Severe Pain diltiaZEM [Cardizem] 60 mg PO BID #60 tablet Midodrine 2.5 mg PO TID #90 tablet - Diet Type: Geriatric Texture: Regular Liquids: Thin May have monthly special meal: Yes - Therapies | Activity Therapy: Evaluation | Treat if indicated: PT, OT Rehabilitation Potential: Maximize functional status Activity: Activity as Tolerated Weight Bearing: Full Weight Assistance Devices: Other (Shivam-walker, using the right hand) Additional Instructions: She will require Ortho f/u in the [facility] on d/c from SNF at about 3-4 wks. Follow Up: Orthopedic Clinic in approx. 6-8 weeks"
--- NOTE | 2018-07-03 17:03 | DISCHARGE SUMMARY ---
Physician: Isis Mcwilliams MD DATE OF ADMISSION: 06/26/2018 DATE OF DISCHARGE: 06/29/2018 HISTORY OF PRESENT ILLNESS: This is an 88-year-old white female with a history of remote CAD, chronic atrial fibrillation, on Eliquis, remote rectal cancer with chemotherapy and radiation in her past, osteoarthritis, hypothyroidism, on replacement, history of COPD, GI bleeding, vision loss. She had recently seen her coil maker for a routine visit, had run out of Eliquis, which was refilled, and she resumed it. She was also started on new triamterene/HCTZ for complaints of leg edema. The patient fell remotely and required orthopedic surgery to her wrist. She also fell 1 month previously, refused to be seen in the emergency room, but then sustained a second fall and required orthopedic attention. She saw an orthopedist as an outpatient and was scheduled for elective shoulder surgery for a left humerus fracture. There was a dysrhythmia noted on telemetry during her orthopedic surgery, and she was therefore seen in consultation by Hospitalists and remained on telemetry with adjustment of medications. HOSPITAL COURSE AND DISCHARGE DIAGNOSES 1. Fractured left humeral neck. This was related to her falling, as described above. 2. Status post left shoulder hemiarthroplasty. Patient underwent successful surgery done by Dr. Dempsey. She was in a sling, required pain medications p.r.n. She was discharged to [facility] in [place], [place], for PT and OT. The orthopedic orders were to remain in the sling for 6 weeks, no exercises or passive motion of the left arm could be done, but the left elbow could be straightened out p.r.n. with careful showering and wound patted dry when needed. The wound was to be left uncovered. 3. Fall at home. Because of the history of multiple falls, the Hospitalist undertook evaluation for orthostasis, and Physical Therapy evaluated her gait, which was fairly good. Depending on her rehabilitation success at [facility], there would be determination of whether she could return home safely. 4. Torsades de pointes. In the operating room, the telemetry revealed an episode of torsades de pointes (a type of ventricular tachycardia). For this reason, Hospitalist followed along, she was on telemetry, troponins x3 were done that were normal, she had no significant electrolyte abnormality and labs were followed, echocardiogram was done that showed preserved LVEF. The echo also showed normal RV size and function, moderately increased left atrial size, [id number] mitral regurgitation and tricuspid regurgitation, and PA pressure 38 mmHg. There were no further episodes of torsades. 5. Atrial fibrillation with rapid ventricular response. Telemetry was continued throughout her postop course, and the day after surgery, she had multiple episodes of atrial fibrillation with rates as high as 120. For this reason, her cardiac medications were adjusted: Her triamterene/HCTZ was discontinued (see below) and she was started on Cardizem orally. This was successful in treating the RVR, and she was discharged with this new medication. 6. History of coronary artery disease. The patient did not have an elevation of troponins while here, no symptoms of angina or shortness of breath. 7. Hypothyroidism. Her TSH was adequate, ruling out hyperthyroidism as the cause of the tachy dysrhythmias. Her dose was continued while here and at discharge. 8. Leg edema. Despite the triamterene/HCTZ helping her leg edema, this needed to be stopped because of significant orthostasis documented on diuretics. 9. Orthostasis. The patient had postural vital sign checks. She had asymptomatic significant drops in blood pressure from 114 down to 101 systolic, 128 down to 106 systolic. Presumably, this may have caused the falls at home, and therefore, no further diuresis was ordered. She was started on compression stockings daily, but off at bedtime and also put on Midodrine 2.5 mg t.i.d. with meals. With this management, she had stabilization of her postural vital signs. 10. Degenerative joint disease. Patient required pain medications p.r.n. LABORATORIES AND IMAGING: Reviewed and summarized above. ALLERGIES 1. CIPRO. 2. SULFA. MEDICATIONS AT THE TIME OF DISCHARGE 1. Eliquis 2.5 mg b.i.d. 2. Vitamin C 500 mg daily. 3. Vitamin D3 at 3000 units daily. 4. Synthroid 50 mcg daily. 5. Methenamine 1 gram b.i.d. 6. Mupirocin ointment b.i.d. p.r.n. 7. Trazodone 100 mg q.p.m. for several doses only. 8. Triamcinolone ointment p.r.n. 9. Tylenol with codeine p.r.n. for only several doses. 10. Diltiazem 60 mg b.i.d. 11. Midodrine 2.5 mg t.i.d. with meals. CONDITION AT DISCHARGE: Stable. PHYSICAL EXAMINATION VITAL SIGNS: Blood pressure 120/64, pulse 45-78, in atrial fibrillation, afebrile, room air saturation 95%. HEENT: Rosacea of her cheeks. NECK: Without JVD or carotid bruits. CHEST: Clear. HEART: Irregular, 1/6 systolic murmur at the lower left sternal border. No RV heave or gallop. ABDOMEN: Soft and benign. EXTREMITIES: Trace pedal edema. No clubbing or cyanosis. NEUROLOGIC: Grossly intact. FOLLOWUP: This will be determined after her stay at [facility]. CODE STATUS: PATIENT WISHES NO INTUBATION, BUT WANTS CPR. Time required to complete this entire discharge, chart review, SNF orders, dictation: Sixty minutes. cc: David Castillo MD TD: 07/03/2018 16:35 MTDD
== END 2018-06-29 12:25 | DRG 483 ==
LOC: MS2 10:28
PROVIDERS: ADMIT Orthopaedic Surgery; ATTEND Internal Medicine
PROC: 0RRK0J6 Replacement of Left Shoulder Joint with Synthetic Substitute, Humeral Surface, Open Approach (ICD-10-PCS; principal; 2018-06-26 11:30)
DX: S42.212A Unspecified displaced fracture of surgical neck of left humerus, initial encounter for closed fracture (principal); I47.2 Ventricular tachycardia; W19.XXXA Unspecified fall, initial encounter; Z91.81 History of falling; I25.10 Atherosclerotic heart disease of native coronary artery without angina pectoris; I48.2 Chronic atrial fibrillation; Z79.01 Long term (current) use of anticoagulants; Z92.21 Personal history of antineoplastic chemotherapy; Z92.3 Personal history of irradiation; Z85.048 Personal history of other malignant neoplasm of rectum, rectosigmoid junction, and anus; M19.90 Unspecified osteoarthritis, unspecified site; E03.9 Hypothyroidism, unspecified; J44.9 Chronic obstructive pulmonary disease, unspecified; H54.7 Unspecified visual loss; I08.1 Rheumatic disorders of both mitral and tricuspid valves; R60.9 Edema, unspecified; I95.1 Orthostatic hypotension; Z88.1 Allergy status to other antibiotic agents; Z88.2 Allergy status to sulfonamides; L71.9 Rosacea, unspecified; Z90.49 Acquired absence of other specified parts of digestive tract
CPT/HCPCS: 36415; 73020; 80048; 80053; 83735; 84100; 84443; 84484; 85014; 85018; 85025; 93005; 93306; 97162; 97165; 97530; 97535; A9270; G0378; J0131; J0690; J1170; J7120

== ENCOUNTER 2018-08-11 12:24 | Outpatient (CLI) | payer MEDICARE, OTHER | END 2018-08-11 12:25 | disposition critical access hospital (66) | LOC: EMS 12:24 | PROVIDERS: ATTEND Surgery | DX: R07.9 Chest pain, unspecified (principal); R06.02 Shortness of breath | CPT/HCPCS: A0425; A0427 ==

== ENCOUNTER 2018-08-11 13:06 | Inpatient (IN) | payer MEDICARE, OTHER ==
[2018-08-11] MEDS ORDERED: KETOROLAC 30 MG/ML VIAL IVP STA (13:15)
--- NOTE | 2018-08-11 14:06 | ED Physician Documentation ---
PD HPI CHEST PAIN - Stated complaint Stated Complaint: CP - Chief complaint Chief Complaint: Cardiac - History obtained from History obtained from: Patient, EMS - History of Present Illness Timing - onset: How many weeks ago (1) Timing - onset during: Light activity Timing - duration: Weeks (1) Timing - details: Gradual onset, Still present Quality: Sharp, Pain Location: Right chest Radiation: Back Improved by: Rest Worsened by: Inspiration, Movement, Palpation Associated symptoms: Shortness of air Similar symptoms before: Has not had sx before Recently seen: Admitted - Additional information Additional information: 88-year-old female with a history of coronary artery disease chronic atrial fibrillation on Eliquis COPD and history of GI bleeding has had a fracture of her left humerus and had surgical repair of that done in June here. Following that, she had a hospitalization with adjustment of her medications and during that stay she had an episode of torsades. She has gone to a fpc facility following her admission here and she has been home now for 1 week. She is a poor historian but she complains of dyspnea that is progressively worsened over the last several days and now chest pain in the right side. She called 911 from her home and medics picked the patient up from home with an O2 sat of 76% on room air and this improved with oxygen for transport. Review of Systems Constitutional: denies: Fever Eyes: denies: Decreased vision Ears: denies: Ear pain Nose: denies: Rhinorrhea / runny nose, Congestion Throat: denies: Sore throat Cardiac: reports: Chest pain / pressure, Pedal edema (To the left ankle s/p prior fx). denies: Palpitations Respiratory: reports: Dyspnea. denies: Cough, Hemoptysis, Wheezing GI: denies: Abdominal Pain, Nausea, Vomiting : denies: Dysuria, Frequency Skin: denies: Rash Musculoskeletal: denies: Neck pain, Back pain, Extremity pain Neurologic: reports: Generalized weakness. 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 Cardiovascular: Other HEENT: Cataracts, Tonsil/Adenoidectomy Derm: Skin cancer surgery - Present Medications Home Medications: Ambulatory Orders Medication Instructions Recorded Confirmed Apixaban [Eliquis] 2.5 mg PO BID 03/12/15 08/11/18 Methenamine Hippurate 1 gm PO Q12H 08/15/17 08/11/18 Ascorbic Acid [Vitamin C] 500 mg PO DAILY 06/14/18 08/11/18 Cholecalciferol (Vitamin D3) 3,000 unit PO DAILY 06/14/18 08/11/18 [Vitamin D3] Trazodone HCl 100 mg PO QPM 06/14/18 08/11/18 Triamcinolone 0.1% Oint [Kenalog 1 applic TOP BID PRN 06/14/18 08/11/18 0.1% Oint] Levothyroxine Sodium [Synthroid] 50 mcg PO QDAC 06/26/18 08/11/18 HYDROcod/ACETAM 5/325 [[place] 5/325] 0.5 - 1 tab PO Q4HR PRN #10 tablet 06/29/18 08/11/18 Midodrine 2.5 mg PO TID #90 tablet 06/29/18 08/11/18 diltiaZEM [Cardizem] 60 mg PO BID #60 tablet 06/29/18 08/11/18 Potassium Chloride 10 meq PO BID 08/11/18 08/11/18 Triamterene/Hydrochlorothiazid 1 cap PO DAILY 08/11/18 08/11/18 [Triamterene-Hctz 37.5-25 mg Cp] - Allergies Allergies/Adverse Reactions: Allergies Allergy/AdvReac Type Severity Reaction Status Date / Time ciprofloxacin [From Cipro] AdvReac increased Verified 08/17/17 07:03 pain Sulfa (Sulfonamide AdvReac Nausea Verified 08/17/17 07:03 Antibiotics) - Social History Does the pt smoke?: No Smoking Status: Never smoker Does the pt drink ETOH?: No Does the pt have substance abuse?: No - Immunizations Immunizations are current?: Yes PD ED PE NORMAL - Vitals Vital signs reviewed: Yes (normal ) - General General: No acute distress, Well developed/nourished - HEENT HEENT: Atraumatic, PERRL, EOMI - Neck Neck: Supple, no meningeal sign, No bony TTP - Cardiac Cardiac: Other (irregularly irregular with 2/6 holosystolic murmer) - Respiratory Respiratory: No respiratory distress, Other (diminished breath sounds in the bases worse on the right ) - Abdomen Abdomen: Soft, Non tender - Back Back: No CVA TTP, No spinal TTP - Derm Derm: Normal color, Warm and dry, No rash - Extremities Extremities: No deformity, No edema - Neuro Neuro: tissue coordinator 2-12 intact, No motor deficit, No sensory deficit, Normal speech Eye Opening: Spontaneous Motor: Obeys Commands Verbal: Confused GCS Score: 14 - Psych Psych: Normal mood, Normal affect Results - Vitals Vitals: Vital Signs - 24 hr 08/11/18 08/11/18 08/11/18 13:12 13:34 14:17 Temperature 36.3 C L Heart Rate 67 78 Respiratory 18 16 Rate Blood Pressure 111/62 100/50 L Blood Pressure 99/55 L [Right] O2 Saturation 95 94 08/11/18 15:40 Temperature Heart Rate 77 Respiratory 16 Rate Blood Pressure 105/54 L Blood Pressure [Right] O2 Saturation 94 Oxygen O2 Source Room air - EKG (time done) 1317 [place]: LAD Intervals: Prolonged QT QRS: Low voltage Ischemia: Q waves, Non specific changes Compare to prior EKG: Unchanged from prior EKG (SPT 8--16 no changes ) Computer interpretation: Agree with computer - Labs Labs: Laboratory Tests 08/11/18 08/11/18 08/11/18 14:40 14:40 14:40 WBC 10.7 RBC 3.86 L Hgb 11.0 L Hct 33.2 L MCV 86.1 MCH 28.5 MCHC 33.1 RDW 14.9 Plt Count 276 MPV 8.0 Neut # (Auto) 7.8 H Lymph # (Auto) 1.4 L [place] # (Auto) 1.1 H Eos # (Auto) 0.3 Baso # (Auto) 0.1 Absolute Nucleated RBC 0.00 Nucleated RBC % 0.0 Sodium 136 Potassium 3.2 L Chloride 98 L Carbon Dioxide 27 Anion Gap 11.0 BUN 19 Creatinine 0.6 Estimated GFR (MDRD) 94 Glucose 92 Calcium 7.9 L Total Bilirubin 0.4 AST 22 ALT 37 Alkaline Phosphatase 162 H Troponin I < 0.04 B-Natriuretic Peptide Total Protein 5.4 L Albumin 2.6 L Globulin 2.8 Albumin/Globulin Ratio 0.9 L Lipase 117 H Urine Color Urine Clarity Urine pH Ur Specific [place] Urine Protein Urine Glucose (UA) Urine Ketones Urine Occult Blood Urine Nitrite Urine Bilirubin Urine Urobilinogen Ur Leukocyte Esterase Ur Microscopic Review Urine Culture Comments 08/11/18 08/11/18 14:40 15:13 WBC RBC Hgb Hct MCV MCH MCHC RDW Plt Count MPV Neut # (Auto) Lymph # (Auto) [place] # (Auto) Eos # (Auto) Baso # (Auto) Absolute Nucleated RBC Nucleated RBC % Sodium Potassium Chloride Carbon Dioxide Anion Gap BUN Creatinine Estimated GFR (MDRD) Glucose Calcium Total Bilirubin AST ALT Alkaline Phosphatase Troponin I B-Natriuretic Peptide 118 H Total Protein Albumin Globulin Albumin/Globulin Ratio Lipase Urine Color YELLOW Urine Clarity CLEAR Urine pH 5.5 Ur Specific [place] <=1.005 Urine Protein NEGATIVE Urine Glucose (UA) NEGATIVE Urine Ketones NEGATIVE Urine Occult Blood NEGATIVE Urine Nitrite NEGATIVE Urine Bilirubin NEGATIVE Urine Urobilinogen 0.2 (NORMAL) Ur Leukocyte Esterase NEGATIVE Ur Microscopic Review NOT INDICATED Urine Culture Comments NOT INDICATED - Rads (name of study) Chest 1 view Radiology: Prelim report reviewed (Impression: Mild pulmonary edema and medium left and small right pleural effusions.), EMP read indepedently, See rad report Procedures - IVC sono (time) 1426 Bedside IVC sono: IVC measures (cm) (1.35), IVC collapsed c insp (cm) (0.79), Euvolemia PD MEDICAL DECISION MAKING - ED course Complexity details: reviewed old records, reviewed results, re-evaluated patient, considered differential, d/w patient ED course: 88 y/o female with a history of afib, CAD, COPD has developed dypnea, chest pain and has infiltrate to both bases with normal WBC and is afebrile. The x-ray shows pleural effusion bilat and is read as failure and she is not currently in failure with a collapsing IVC and a BNP of 118. I am concerned about pneumonia. The patient is failing at home and we have consulted the hospitalist for admission. Departure - Departure Disposition: 66 [facility] DC/Xfer Clinical Impression: Chest pain Qualifiers: Chest pain type: chest pain on breathing Qualified Code(s): R07.1 - Chest pain on breathing; R07.81 - Pleurodynia Pneumonia Qualifiers: Pneumonia type: due to unspecified organism Laterality: bilateral Lung location: lower lobe of lung Qualified Code(s): J18.1 - Lobar pneumonia, unspecified organism
--- NOTE | 2018-08-11 14:10 | XRAY Report ---
Reason: chest pain Procedure Date: 08/11/2018 Accession Number: [id number] / [id number] Procedure: XR - Chest 1 View X-Ray CPT Code: 09936 FULL RESULT: EXAM: CHEST RADIOGRAPHY EXAM DATE: 08/11/2018 01:26 PM. CLINICAL HISTORY: Chest pain. COMPARISON: SHOULDER 3 VIEW LT 08/02/2018 2:41 PM CHEST 2 VIEW PA/LAT 10/11/2015 5:41 AM CHEST 2 VIEW PA/LAT 03/12/2015 2:10 AM. TECHNIQUE: 1 view. FINDINGS: Lungs/Pleura: Mild pulmonary edema. New, small right and medium left pleural effusions with underlying bibasilar compressive atelectasis. No pneumothorax. Mediastinum: Heart size upper limits of normal, stable Other: Left total shoulder arthroplasty projects over expected position IMPRESSION: Mild pulmonary edema and medium left and small right pleural effusions. RADIA
[2018-08-11 14:46] LABS: BASOPHILS # (AUTO) 0.1 10^3/uL (0.0-0.1); BASOPHILS % (AUTO) 0.9 %; EOSINOPHILS # (AUTO) 0.3 10^3/uL (0.0-0.7); EOSINOPHILS % (AUTO) 3.3 %; LYMPHOCYTES # (AUTO) 1.4 10^3/uL (1.5-3.5); LYMPHOCYTES % (AUTO) 12.7 %; MEAN CORPUSCULAR HEMOGLOBIN 28.5 pg (27.0-31.0); MEAN CORPUSCULAR HGB CONC 33.1 g/dL (32.0-36.0); MEAN CORPUSCULAR VOLUME 86.1 fL (81.0-99.0); MONOCYTES # (AUTO) 1.1 10^3/uL (0.0-1.0); MONOCYTES % (AUTO) 10.1 %; NEUTROPHILS # (AUTO) 7.8 10^3/uL (1.5-6.6); PLT - PLATELET COUNT 276 10^3/uL (130-450); RED BLOOD COUNT 3.86 10^6/uL (4.20-5.40); RED CELL DISTRIBUTION WIDTH 14.9 % (12.0-15.0); WHITE BLOOD COUNT 10.7 x10^3/uL (4.8-10.8)
[2018-08-11 14:58] LABS: ALBUMIN 2.6 g/dL (3.2-5.5); ALBUMIN/GLOBULIN RATIO 0.9 (1.0-2.2); BILIRUBIN,TOTAL 0.4 mg/dL (0.2-1.0); CALCIUM 7.9 mg/dL (8.5-10.3); CREATININE 0.6 mg/dL (0.4-1.0); TOTAL PROTEIN 5.4 g/dL (6.7-8.2)
[2018-08-11 15:24] LABS: BILIRUBIN,URINE NEGATIVE (NEGATIVE); GLUCOSE, URINE (UA) NEGATIVE (NEGATIVE); KETONES,URINE (UA) NEGATIVE (NEGATIVE); LEUKOCYTE ESTERASE, URINE NEGATIVE (NEGATIVE); NITRITE,URINE NEGATIVE (NEGATIVE); OCCULT BLOOD,URINE NEGATIVE (NEGATIVE); PH,URINE 5.5 PH (5.0-7.5); PROTEIN,URINE NEGATIVE (NEGATIVE); UROBILINOGEN,URINE 0.2 (NORMAL) E.U./dL (NORMAL)
[2018-08-11 15:35] LABS: CLARITY,URINE CLEAR (CLEAR)
[2018-08-11] MEDS ORDERED: PROCHLORPERAZINE 10 MG/2 ML VIAL IVP PRN (16:28)
[2018-08-11] MEDS ORDERED: levoFLOXacin 750 MG/150 ML 750 MG/150 ML BAG IV SCH (17:00)
[2018-08-11] MEDS ORDERED: DEXTROSE 5%-0.9% NACL 1,000 ML IV SCH (17:00)
[2018-08-11] MEDS: D5NS W/20 MEQ KCL 1,000 ML IV SCH (18:00)
[2018-08-11] MEDS: SODIUM CHLORIDE FLUSH 0.9% 10 ML SYRINGE IVP SCH (18:01)
[2018-08-11] MEDS: POTASSIUM CHLOR 10 MEQ/100 ML 10 MEQ/100 ML BAG IV SCH ×2 (18:01→19:00)
[2018-08-11] MEDS ORDERED: VANCOMYCIN INJ 0.75 GM in SODIUM CHLORIDE 0.9% 250 ML IV SCH (20:00)
[2018-08-11] MEDS: APIXABAN 2.5 MG TABLET PO SCH (20:49)
[2018-08-11] MEDS: guaiFENesin 600 MG TABLET PO SCH (20:49)
[2018-08-11] MEDS: METHENAMINE HIPPURATE 1 GM TABLET PO SCH (20:49)
[2018-08-11] MEDS: FAMOTIDINE 20 MG TABLET PO SCH (20:50)
[2018-08-11] MEDS: POTASSIUM CHLORIDE 10 MEQ CAPSULE PO SCH (20:55)
[2018-08-11] MEDS: MIDODRINE 2.5 MG TABLET PO SCH (21:35)
--- NOTE | 2018-08-11 21:51 | HISTORY & PHYSICAL EXAMINATION ---
DATE OF SERVICE: 08/11/2018 Physician: Isis Mcwilliams MD HISTORY OF PRESENT ILLNESS: This is an 88-year-old white female who lives alone and has a history of remote coronary artery disease, chronic atrial fibrillation on Eliquis, remote rectal cancer and was treated with chemotherapy and radiation, DJD, hypothyroidism, COPD; several falls over this year, one led to a fractured humerus for which she needed elective admission for orthopedic surgery and developed Torsades V-Tach during surgery on telemetry and needed longer hospital stay with Hospitalist managing her course, this was just six weeks ago. She was also orthostatic, and her triamterene/HCTZ was stopped, and she needed midodrine started. She was discharged to a [facility] for physical therapy and just returned to her house one week ago. Over this one week, she has slowly developed worsening shortness of breath and weakness, and then today developed right-sided chest pain, which was slightly pleuritic. She was brought to the emergency room and found to be hypoxic with saturations below 90%, hypotensive with a systolic of 99 mmHg, and describing feeling weak and short of breath during activity. Her ER workup revealed bilateral lung infiltrates on chest x-ray consistent with healthcare-associated pneumonia, and she is being admitted for management of this. PAST MEDICAL HISTORY 1. Chronic atrial fibrillation, on Eliquis. 2. Hypothyroidism. 3. COPD. 4. Remote coronary artery disease. 5. Remote cancer. 6. Recurrent falls that were probably related to orthostasis resulting in fractures, the most recent was the humerus fracture six weeks ago. ALLERGIES 1. CIPRO. 2. SULFA. CURRENT MEDICATIONS 1. Diltiazem 60 mg b.i.d. 2. Triamterene/HCT 37.5/25 mg daily. 3. Potassium chloride 10 mEq b.i.d. 4. Midodrine 2.5 mg t.i.d. 5. Methenamine 1 gram b.i.d. 6. Synthroid 50 mcg daily. 7. Vitamin D3 at 3000 units daily. 8. Vitamin C 500 mg daily. 9. Eliquis 2.5 mg b.i.d. FAMILY HISTORY: No inherited diseases. SOCIAL HISTORY: She is a nonsmoker, drinks no alcohol, no illicit drug use. She has a tenant who has become a family friend and is her DPOA and helps her around the house; however, she makes her own meals. She lives alone. REVIEW OF SYSTEMS: She reports that she eats very little, mostly just her breakfast. She prepares this using a portable burner which is placed on her countertop and she sits at a stool to make this food. A comprehensive review of system was performed, and the pertinent positives are listed, the rest are negative. PHYSICAL EXAMINATION VITAL SIGNS: Blood pressure 99/55, pulse 78 in Afib, afebrile, room air saturation 95%. GENERAL: Cachectic white female. HEENT: Reveals marked flushing of her cheeks and possible rosacea. Dry oral mucosa. NECK: Without JVD in supine position. CHEST: Diminished breath sounds at both bases, but clear above that with no wheezes, rales, rub, or rhonchi. HEART: Distant heart sounds. No murmur. ABDOMEN: Soft, nontender. EXTREMITIES: No clubbing, cyanosis, or edema. There is positive skin tenting. NEUROLOGIC: Grossly intact, but she has poor vision. LABORATORY: Sodium 136, potassium 3.2, BUN 19, creatinine 0.6. Lactic acid 1.1. Normal liver tests. Calcium low at 7.9. Troponin not detectable at less than 0.04. BNP 118. Low albumin of 2.6. White blood count 10.7 with a left shift, hemoglobin 11, platelet count normal at 276. No INR was done but would be inaccurate on Eliquis. Urinalysis was unremarkable. IMAGING: Chest x-ray shows bilateral basal infiltrates with bilateral pleural effusions, also possible volume overload. EKG: Atrial fibrillation, diffusely flat T waves. IMPRESSION/DIAGNOSES: 1. Healthcare-associated pneumonia (she has been hospitalized and in a rehab facility over the previous 6 weeks). Possible pleuritic chest pain associated with this. 2. Chronic obstructive pulmonary disease history, but not with an exacerbation. 3. Chronic atrial fibrillation. 4. Hypotension 5. History of orthostatic hypotension. 6. Hypothyroidism. 7. Hypokalemia. 8. Hypoalbuminemia 9. Protein-calorie malnutrition PLAN: Admit the patient to medical/surgical bed on telemetry. Begin gentle hydration with D5 for calories, and normal saline with potassium replacement for 1 liter only, due to possible CHF by CXR. Give additional potassium runners. Follow her electrolytes daily. Hold the triamterene/HCTZ because of clinical dehydration and low BP. Continue with her other prehospital medications: the Eliquis, Cardizem and thyroid medications. Obtain sputum samples if she makes it and obtain a blood culture. Start empiric IV antibiotics for healthcare- associated pneumonia using vancomycin, piperacillin/tazobactam and levofloxacin. Begin respiratory treatment p.r.n. Supplemental oxygen to start. Begin physical therapy so that she does not become deconditioned. Follow up the chest x-ray in case of worsening pleural effusions or CHF. CODE STATUS: The patient requests CPR, but wants no intubation. DEEP VENOUS THROMBOSIS PROPHYLAXIS: Pharmacotherapy (Eliquis). ATTESTATION: The patient is expected to be discharged or transferred to another facility at 96 hours: Yes. cc: David Castillo MD TD: 08/11/2018 18:20 MTDD
[2018-08-11] MEDS ORDERED: diphenhydrAMINE 25 MG CAPSULE PO PRN ×2 (23:27→23:28)
[2018-08-12] MEDS: diphenhydrAMINE ELIXIR 25 MG/10 ML UDC PO PRN ×2 (00:16→21:43)
[2018-08-12] MEDS: SODIUM CHLORIDE FLUSH 0.9% 10 ML SYRINGE IVP SCH ×3 (01:54→17:08)
[2018-08-12] MEDS: MIDODRINE 2.5 MG TABLET PO SCH ×3 (06:07→21:42)
[2018-08-12] MEDS: LEVOTHYROXINE 25 MCG TABLET PO SCH (06:07)
[2018-08-12 06:08] LABS: MEAN CORPUSCULAR HEMOGLOBIN 28.2 pg (27.0-31.0); MEAN CORPUSCULAR HGB CONC 32.3 g/dL (32.0-36.0)
--- NOTE | 2018-08-12 06:08 | XRAY Report ---
Reason: F/U bilat infiltrates Procedure Date: 08/12/2018 Accession Number: [id number] / [id number] Procedure: XR - Chest 1 View X-Ray CPT Code: 81650 FULL RESULT: EXAM: CHEST RADIOGRAPHY EXAM DATE: 08/12/2018 05:59 AM. CLINICAL HISTORY: Followup bilateral infiltrates. COMPARISON: SHOULDER 3 VIEW LT 06/14/2018 11:08 AM SHOULDER 3 VIEW LT 08/02/2018 2:41 PM CHEST 2 VIEW PA/LAT 10/11/2015 5:41 AM CHEST 1 VIEW 08/11/2018 1:14 PM. TECHNIQUE: 1 view. FINDINGS IMPRESSION: 1. Moderate CHF pattern is again seen, with progression compared to the recent prior examination. As before, there is pulmonary interstitial edema, pulmonary venous congestion, as well as at least mild enlargement of the cardiac silhouette. 2. Medium to large left-sided pleural effusion and small right-sided pleural effusions are noted, increased from the prior exam. Left basilar consolidation persists. Small right basilar consolidation is also noted. This may be compressive atelectasis. Aspiration or infection difficult to exclude with certainty. 4. No definite evidence of a pneumothorax. 5. There is a small rounded sclerotic focus projecting over the right proximal humerus, new from the recent prior study, possibly artifact external to the patient. There is a left shoulder prosthesis. Moderate to severe calcific aortic atherosclerosis. RADIA
[2018-08-12 06:13] LABS: CALCIUM 8.3 mg/dL (8.5-10.3); CREATININE 0.6 mg/dL (0.4-1.0)
[2018-08-12 06:15] LABS: BASOPHILS # (AUTO) 0.2 10^3/uL (0.0-0.1); BASOPHILS % (AUTO) 1.4 %; EOSINOPHILS # (AUTO) 0.6 10^3/uL (0.0-0.7); EOSINOPHILS % (AUTO) 5.1 %; HGB - HEMOGLOBIN 12.1 g/dL (12.0-16.0); LYMPHOCYTES # (AUTO) 2.9 10^3/uL (1.5-3.5); LYMPHOCYTES % (AUTO) 25.8 %; MEAN CORPUSCULAR VOLUME 87.5 fL (81.0-99.0); MEAN PLATELET VOLUME 8.1 fL (7.9-10.8); MONOCYTES # (AUTO) 1.4 10^3/uL (0.0-1.0); MONOCYTES % (AUTO) 12.4 %; NEUTROPHILS # (AUTO) 6.3 10^3/uL (1.5-6.6); NEUTROPHILS % (AUTO) 55.3 %; PLT - PLATELET COUNT 345 10^3/uL (130-450); RED BLOOD COUNT 4.28 10^6/uL (4.20-5.40); RED CELL DISTRIBUTION WIDTH 15.2 % (12.0-15.0); WHITE BLOOD COUNT 11.3 x10^3/uL (4.8-10.8)
[2018-08-12] MEDS: SODIUM CHLORIDE FLUSH 0.9% 10 ML SYRINGE IVP PRN (06:34)
[2018-08-12] MEDS: POLYETHYLENE GLYCOL 3350 17 GM PACKET PO SCH (08:39)
[2018-08-12] MEDS: FAMOTIDINE 20 MG TABLET PO SCH ×2 (08:40→20:04)
[2018-08-12] MEDS: APIXABAN 2.5 MG TABLET PO SCH ×2 (08:40→20:04)
[2018-08-12] MEDS: CHOLECALCIFEROL 1,000 UNIT TABLET PO SCH (08:40)
[2018-08-12] MEDS: POTASSIUM CHLORIDE 10 MEQ CAPSULE PO SCH ×2 (08:40→20:04)
[2018-08-12] MEDS: METHENAMINE HIPPURATE 1 GM TABLET PO SCH ×2 (08:41→20:05)
[2018-08-12] MEDS: ASCORBIC ACID CHEW 500 MG TABLET PO SCH (08:41)
[2018-08-12] MEDS: guaiFENesin 600 MG TABLET PO SCH ×2 (08:41→20:04)
[2018-08-12] MEDS ORDERED: PIPERACILLIN/TAZOBACTAM 3.375 GM in SODIUM CHLORIDE 0.9% MINIBAG 100 ML IV SCH (09:00)
[2018-08-12] MEDS: VANCOMYCIN INJ 1 GM, VANCOMYCIN INJ 250 MG in SODIUM CHLORIDE 0.9% 250 ML IV SCH (10:44)
--- NOTE | 2018-08-12 13:57 | PROVIDER PROGRESS NOTE ---
Assessment/Plan - Problem List (1) HCAP (healthcare-associated pneumonia) Assessment/Plan: She is not producing any sputum. She still has significant shortness of breath with any activity. Continue with empiric coverage with IV Vanco, IV Levofloxacin and IV Zosyn. Plan is for 2 to 3 days of IV antibiotics then transition to oral antibiotics and complete a 7 to 10-day total course. Add Florastor for bowel health, while on antibiotics. (2) CHF (congestive heart failure) Assessment/Plan: The chest x-ray was read as having continued volume overload as well as tenzin ateral effusions. She received only 1 L of IV hydration because of the clinical dehydration, then it was stopped. Continue to monitor her I's and O's and daily weights. (3) COPD exacerbation Assessment/Plan: She has minimal wheezing but continued severe shortness of breath with any activity. Continue with her nebulizers, Mucinex. (4) Weakness Assessment/Plan: Patient has become deconditioned very quickly. Just after the recent last admission she needed transfer to SNF for rehab and stayed there 5 weeks. (5) Orthostatic hypotension Assessment/Plan: She remains on scheduled Midodrin dosing tid and off of her triamterene/HCTZ. (6) Chronic a-fib Assessment/Plan: Heart rate is controlled on Cardizem 60 mg twice daily. Her usual Eliquis dose is also continued here. (7) Hypothyroidism Assessment/Plan: Her usual Synthroid dose continues while here. The TSH was just recently checked at the last admission 6 weeks ago. - Current Meds Current Meds: Current Medications Generic Name Dose Route Start Last Admin Trade Name Raymond PRN Reason Stop Dose Admin Apixaban 2.5 mg 08/11/18 21:00 08/12/18 08:40 Eliquis PO 2.5 mg BID JACQUELINE Administration Ascorbic Acid 500 mg 08/12/18 09:00 08/12/18 08:41 Vitamin C PO 500 mg DAILY JACQUELINE Administration Cholecalciferol 3,000 unit 08/12/18 09:00 08/12/18 08:40 Vitamin D3 PO 3,000 unit DAILY JACQUELINE Administration Diltiazem HCl 60 mg 08/11/18 21:00 08/12/18 08:40 Cardizem PO 60 mg BID JACQUELINE Administration Diphenhydramine HCl 12.5 mg 08/11/18 23:44 08/12/18 00:16 Benadryl Elixir PO 12.5 mg QPM PRN Administration Insomnia Famotidine 20 mg 08/11/18 21:00 08/12/18 08:40 Pepcid PO 20 mg BID JACQUELINE Administration Guaifenesin 600 mg 08/11/18 21:00 08/12/18 08:41 Mucinex PO 600 mg BID JACQUELINE Administration Vancomycin HCl 1 gm/ 250 mls @ 167 mls/hr 08/12/18 10:00 08/12/18 13:09 Vancomycin HCl 250 mg/ Sodium IV Infused Chloride Q24H JACQUELINE Infusion Levothyroxine Sodium 50 mcg 08/12/18 07:00 08/12/18 06:07 Synthroid PO 50 mcg QDAC JACQUELINE Administration Methenamine Hippurate 1 gm 08/11/18 20:00 08/12/18 08:41 Hiprex PO 1 gm Q12H JACQUELINE Administration Midodrine 2.5 mg 08/11/18 22:00 08/12/18 06:07 PO 2.5 mg TID JACQUELINE Administration Polyethylene Glycol 17 gm 08/12/18 09:00 08/12/18 08:39 Miralax PO 17 gm DAILY JACQUELINE Administration Potassium Chloride 10 meq 08/11/18 21:00 08/12/18 08:40 Micro-K PO 10 meq BID JACQUELINE Administration Sodium Chloride 10 ml 08/11/18 16:28 08/12/18 06:34 Normal Saline Flush 0.9% IVP 10 ml PRN PRN Administration NEEDED PER PROVIDER ORDERS Sodium Chloride 10 ml 08/11/18 17:00 08/12/18 08:40 Normal Saline Flush 0.9% IVP 10 ml 0100,0900,1700 JACQUELINE Administration - Lab Result Fish Bone Diagrams: 08/12/18 05:46 08/12/18 05:46 - Additional Planning My Orders: My Active Orders 08/11/18 16:28 Activity Orders [RC] Q2HR IO [RC] IOSHIFT Initiate Bowel Care Protocol [RC] .protocol Initiate Personal Care Protoco [RC] .protocol Oxygen Therapy [RC] Routine Telemetry- [RC] Q4HR Vital Signs [RC] Q4HR Prochlorperazine Inj [Compazine Inj] 10 mg IVP Q6HR PRN Sodium Chloride Flush 0.9% [Normal Saline Flush 0.9%] 10 ml IVP PRN PRN Code Status [OTHERS] Routine Condition of Patient [OTHERS] Routine DVT Prophylaxis [OTHERS] Routine 08/11/18 16:30 IV Insert [RC] .ONCE 08/11/18 16:31 Incentive Spirometry - RT [RC] .TID 08/11/18 16:32 Initiate Line Care Protocol [RC] QSHIFT Evaluate and Treat OT [OT] Routine Evaluate and Treat PT [PT] Routine 08/11/18 16:40 CULTURE, BLOOD #1 [RM] Stat 08/11/18 16:45 CULTURE, BLOOD #2 [RM] Stat 08/11/18 17:00 Sodium Chloride Flush 0.9% [Normal Saline Flush 0.9%] 10 ml IVP 0100,0900,1700 08/11/18 18:15 Nebulizer/MDI Tx. [RC] .Q4PRN 08/11/18 20:00 Methenamine Hippurate [Hiprex] 1 gm PO Q12H 08/11/18 21:00 Apixaban [Eliquis] 2.5 mg PO BID Famotidine [Pepcid] 20 mg PO BID Potassium Chloride [Micro-K] 10 meq PO BID diltiaZEM [Cardizem] 60 mg PO BID guaiFENesin [Mucinex] 600 mg PO BID 08/11/18 22:00 Midodrine 2.5 mg PO TID 08/11/18 Dinner Regular Diet [DIET] 08/12/18 07:00 Levothyroxine [Synthroid] 50 mcg PO QDAC 08/12/18 09:00 Ascorbic Acid Chew [Vitamin C] 500 mg PO DAILY Cholecalciferol [Vitamin D3] 3,000 unit PO DAILY Polyethylene Glycol 3350 [Miralax] 17 gm PO DAILY 08/12/18 10:00 Vancomycin Inj [Vancomycin] 1 gm Vancomycin Inj 250 mg Sodium Chloride 0.9% [Normal Saline 0.9%] 250 ml IV Q24H 08/12/18 16:00 Piperacillin/Tazobactam [Zosyn] 3.375 gm Sodium Chloride 0.9% Minibag [Normal Saline 0.9% Minibag] 100 ml IV Q6H 08/13/18 05:00 BMP - BASIC METABOLIC PANEL [CHEM] DAILYLAB CBC - COMP BLD CT W/AUTO DIFF [HEME] DAILYLAB 08/13/18 17:00 levoFLOXacin 750 MG/150 ML [Levaquin 750 mg/150 ml] 750 mg in 150 ml IV Q48H 08/14/18 05:00 BMP - BASIC METABOLIC PANEL [CHEM] DAILYLAB CBC - COMP BLD CT W/AUTO DIFF [HEME] DAILYLAB 08/15/18 09:30 VANCOMYCIN TROUGH [CHEM] Timed Subjective - Subjective Patient Reports: Feeling Better Nursing Reports: Other (PT walked with her: she was exhausted walking in her room.) Objective Vital Signs: Vital Signs - 24 hr 08/11/18 08/11/18 08/11/18 14:17 15:40 16:40 Temperature Heart Rate 78 77 101 H Heart Rate [ Activity] Heart Rate [ Brachial] Heart Rate [ Radial] Respiratory 16 16 16 Rate Blood Pressure 100/50 L 105/54 L 129/83 H Blood Pressure [Activity] Blood Pressure [Right Brachial artery] O2 Saturation 94 94 95 O2 Saturation [ With Activity] 08/11/18 08/11/18 08/11/18 17:15 17:48 19:40 Temperature 36.5 C 36.3 C L 37.0 C Heart Rate 100 Heart Rate [ Activity] Heart Rate [ 91 Brachial] Heart Rate [ 81 Radial] Respiratory 17 16 16 Rate Blood Pressure Blood Pressure [Activity] Blood Pressure 129/87 H 113/69 [Right Brachial artery] O2 Saturation 96 95 98 O2 Saturation [ With Activity] 08/11/18 08/11/18 08/12/18 20:49 23:35 00:15 Temperature 36.6 C Heart Rate Heart Rate [ Activity] Heart Rate [ 95 Brachial] Heart Rate [ Radial] Respiratory 18 Rate Blood Pressure 113/69 Blood Pressure [Activity] Blood Pressure 147/84 H [Right Brachial artery] O2 Saturation 93 91 L O2 Saturation [ With Activity] 08/12/18 08/12/18 08/12/18 00:20 04:30 08:27 Temperature 36.7 C 36.7 C Heart Rate Heart Rate [ Activity] Heart Rate [ 89 93 Brachial] Heart Rate [ Radial] Respiratory 18 20 Rate Blood Pressure Blood Pressure [Activity] Blood Pressure 121/76 147/77 H [Right Brachial artery] O2 Saturation 95 93 95 O2 Saturation [ With Activity] 08/12/18 08/12/18 10:55 13:34 Temperature 36.3 C L Heart Rate Heart Rate [ 115 H Activity] Heart Rate [ 92 Brachial] Heart Rate [ Radial] Respiratory 18 Rate Blood Pressure Blood Pressure 145/78 H [Activity] Blood Pressure 111/52 L [Right Brachial artery] O2 Saturation 97 O2 Saturation [ 95 With Activity] Oxygen O2 Source [With Activity] Room air O2 Source Room air I&O (Last 24 Hrs): Intake and Output Totals x24h 08/10/18 08/11/18 08/12/18 23:59 23:59 23:59 Intake Total 7797.647 4709.386 Output Total 300 1200 Balance 950.833 236.386 General: Alert HEENT: Mucous membr. moist/pink, Other (Flushed cheeks, red papules near L ear.) Neck: Supple, No JVD Neuro: Alert, Non Focal Cardiovascular: No murmurs Respiratory: No respiratory distress, Other (Diminished at bases) Abdomen: Soft Extremities: No edema - Results Results: Laboratory Results WBC 11.3 x10^3/uL (4.8-10.8) H 08/12/18 05:46 RBC 4.28 10^6/uL (4.20-5.40) 08/12/18 05:46 Hgb 12.1 g/dL (12.0-16.0) 08/12/18 05:46 Hct 37.4 % (37.0-47.0) 08/12/18 05:46 MCV 87.5 fL (81.0-99.0) 08/12/18 05:46 MCH 28.2 pg (27.0-31.0) 08/12/18 05:46 MCHC 32.3 g/dL (32.0-36.0) 08/12/18 05:46 RDW 15.2 % (12.0-15.0) H 08/12/18 05:46 Plt Count 345 10^3/uL (130-450) 08/12/18 05:46 MPV 8.1 fL (7.9-10.8) 08/12/18 05:46 Neut # (Auto) 6.3 10^3/uL (1.5-6.6) 08/12/18 05:46 Lymph # (Auto) 2.9 10^3/uL (1.5-3.5) 08/12/18 05:46 [place] # (Auto) 1.4 10^3/uL (0.0-1.0) H 08/12/18 05:46 Eos # (Auto) 0.6 10^3/uL (0.0-0.7) 08/12/18 05:46 Baso # (Auto) 0.2 10^3/uL (0.0-0.1) H 08/12/18 05:46 Absolute Nucleated RBC 0.01 x10^3/uL 08/12/18 05:46 Nucleated RBC % 0.1 /100WBC 08/12/18 05:46 Sodium 139 mmol/L (135-145) 08/12/18 05:46 Potassium 4.3 mmol/L (3.5-5.0) 08/12/18 05:46 Chloride 106 mmol/L (101-111) 08/12/18 05:46 Carbon Dioxide 23 mmol/L (21-32) 08/12/18 05:46 Anion Gap 10.0 (6-13) 08/12/18 05:46 BUN 15 mg/dL (6-20) 08/12/18 05:46 Creatinine 0.6 mg/dL (0.4-1.0) 08/12/18 05:46 Estimated GFR (MDRD) 94 (>89) 08/12/18 05:46 Glucose 129 mg/dL (70-100) H 08/12/18 05:46 Lactic Acid 1.1 mmol/L (0.5-2.2) 08/11/18 16:45 Calcium 8.3 mg/dL (8.5-10.3) L 08/12/18 05:46 Magnesium 2.0 mg/dL (1.7-2.8) 08/12/18 05:46 Total Bilirubin 0.4 mg/dL (0.2-1.0) 08/11/18 14:40 AST 22 IU/L (10-42) 08/11/18 14:40 ALT 37 IU/L (10-60) 08/11/18 14:40 Alkaline Phosphatase 162 IU/L (42-121) H 08/11/18 14:40 Troponin I < 0.04 ng/mL (<0.49) 08/11/18 14:40 B-Natriuretic Peptide 118 pg/mL (5-100) H 08/11/18 14:40 Total Protein 5.4 g/dL (6.7-8.2) L 08/11/18 14:40 Albumin 2.6 g/dL (3.2-5.5) L 08/11/18 14:40 Globulin 2.8 g/dL (2.1-4.2) 08/11/18 14:40 Albumin/Globulin Ratio 0.9 (1.0-2.2) L 08/11/18 14:40 Lipase 117 U/L (22-51) H 08/11/18 14:40 TSH 20.09 uIU/mL (0.34-5.60) H 08/12/18 05:46 Urine Color YELLOW 08/11/18 15:13 Urine Clarity CLEAR (CLEAR) 08/11/18 15:13 Urine pH 5.5 PH (5.0-7.5) 08/11/18 15:13 Ur Specific [place] <=1.005 (1.002-1.030) 08/11/18 15:13 Urine Protein NEGATIVE mg/dL (NEGATIVE) 08/11/18 15:13 Urine Glucose (UA) NEGATIVE mg/dL (NEGATIVE) 08/11/18 15:13 Urine Ketones NEGATIVE mg/dL (NEGATIVE) 08/11/18 15:13 Urine Occult Blood NEGATIVE (NEGATIVE) 08/11/18 15:13 Urine Nitrite NEGATIVE (NEGATIVE) 08/11/18 15:13 Urine Bilirubin NEGATIVE (NEGATIVE) 08/11/18 15:13 Urine Urobilinogen 0.2 (NORMAL) E.U./dL (NORMAL) 08/11/18 15:13 Ur Leukocyte Esterase NEGATIVE (NEGATIVE) 08/11/18 15:13 Ur Microscopic Review NOT INDICATED 08/11/18 15:13 Urine Culture Comments NOT INDICATED 08/11/18 15:13 - Procedures Procedures: Procedures REPLACE L SHOULDER JT W SYNTH SUB, HUMERAL, OPEN (06/26/18) REPOSITION LEFT RADIUS WITH INT FIX, PERC APPROACH (08/17/17)
[2018-08-12] MEDS: PIPERACILLIN/TAZOBACTAM 3.375 GM in SODIUM CHLORIDE 0.9% MINIBAG 100 ML IV SCH ×2 (17:08→22:11)
[2018-08-12] MEDS: SACCHAROMYCES BOULARDII 250 MG CAPSULE PO SCH (17:10)
[2018-08-12] MEDS: D5NS W/20 MEQ KCL 1,000 ML IV SCH (17:59)
[2018-08-13] MEDS: SODIUM CHLORIDE FLUSH 0.9% 10 ML SYRINGE IVP SCH ×4 (00:13→23:49)
[2018-08-13] MEDS: PIPERACILLIN/TAZOBACTAM 3.375 GM in SODIUM CHLORIDE 0.9% MINIBAG 100 ML IV SCH ×4 (03:58→21:45)
[2018-08-13] MEDS: SODIUM CHLORIDE FLUSH 0.9% 10 ML SYRINGE IVP PRN ×2 (04:01→21:47)
[2018-08-13 05:39] LABS: BASOPHILS # (AUTO) 0.1 10^3/uL (0.0-0.1); EOSINOPHILS # (AUTO) 0.4 10^3/uL (0.0-0.7); EOSINOPHILS % (AUTO) 3.1 %; HGB - HEMOGLOBIN 12.3 g/dL (12.0-16.0); LYMPHOCYTES # (AUTO) 1.5 10^3/uL (1.5-3.5); LYMPHOCYTES % (AUTO) 13.3 %; MEAN CORPUSCULAR HEMOGLOBIN 28.3 pg (27.0-31.0); MEAN CORPUSCULAR HGB CONC 32.5 g/dL (32.0-36.0); MEAN CORPUSCULAR VOLUME 86.8 fL (81.0-99.0); MEAN PLATELET VOLUME 7.3 fL (7.9-10.8); MONOCYTES # (AUTO) 1.7 10^3/uL (0.0-1.0); MONOCYTES % (AUTO) 14.7 %; NEUTROPHILS # (AUTO) 7.8 10^3/uL (1.5-6.6); NEUTROPHILS % (AUTO) 67.9 %; PLT - PLATELET COUNT 346 10^3/uL (130-450); RED BLOOD COUNT 4.37 10^6/uL (4.20-5.40); RED CELL DISTRIBUTION WIDTH 15.1 % (12.0-15.0); WHITE BLOOD COUNT 11.5 x10^3/uL (4.8-10.8)
[2018-08-13 05:47] LABS: CALCIUM 8.3 mg/dL (8.5-10.3); CREATININE 0.8 mg/dL (0.4-1.0)
[2018-08-13] MEDS: MIDODRINE 2.5 MG TABLET PO SCH ×3 (06:04→21:45)
[2018-08-13] MEDS: LEVOTHYROXINE 25 MCG TABLET PO SCH (06:04)
--- NOTE | 2018-08-13 08:27 | PROVIDER PROGRESS NOTE ---
Assessment/Plan - Problem List (1) HCAP (healthcare-associated pneumonia) Assessment/Plan: After being discharged from here with the shoulder repair, she was at [facility] for 5 weeks, just got home for a week and started to develop shortness of breath and feeling weak.She was very short of breath in the ER and chest x-ray revealed bilateral infiltrates consistent with HCAP WBC improving daily. No sputum was produced, she had no cough with this pneumonia. Remains on Mucinex for pulmonary toilet. Will add Acapella, and RT to help with Incentive Spirometry as well. Continue antibiotics. She has been on 2 days of iv Vanco, iv Levoflox and iv Pip/Tazo. Will transition to empiric oral antibiotics tomorrow and plan a 7 day course. Continue Florastor. (2) CHF (congestive heart failure) Assessment/Plan: The chest x-ray was read as having continued volume overload as well as bilateral effusions. She received only 1 L of IV hydration because of the clinical dehydration, then it was stopped. She does not have systolic heart failure. In June 2018, during the last admission here, she had an Echocardiogram showing an LVEF of 60 to 65%, and diastolic dysfunction could not be assessed. Continue to monitor her I's and O's and daily weights. (3) COPD exacerbation Assessment/Plan: Will add scheduled nebs with RT. (4) Hypothyroidism Assessment/Plan: The TSH is abnormally elevated indicating inadequate thyroid replacement. Will increase her usual a.m. dose from 50 mcg to 75 mcg. (5) Weakness Assessment/Plan: Patient became deconditioned quickly, with this pneumonia. PT started working with the patient and recommends PT rehab at a SNF again (she was just discharged from [facility] in [place] where she stayed for 5 weeks after the last hospitalization here). SW informed that patient prefers [facility] again if possible. (6) Orthostatic hypotension Assessment/Plan: Continue on her Midodrin 3 times daily, she has fluctuating blood pressures but none are severely hypotensive. No orthostatic vital signs are ordered, since we know that she has orthostasis. (7) Chronic a-fib Assessment/Plan: Her heart rate was controlled on Cardizem, until she was nervous or frustrated. We will increase her Cardizem 60 twice daily to 60 3 times daily. She remains on Eliquis anticoagulation for stroke prevention, as before admission. - Current Meds Current Meds: Current Medications Generic Name Dose Route Start Last Admin Trade Name Freq PRN Reason Stop Dose Admin Apixaban 2.5 mg 08/11/18 21:00 08/12/18 20:04 Eliquis PO 2.5 mg BID JACQUELINE Administration Ascorbic Acid 500 mg 08/12/18 09:00 08/12/18 08:41 Vitamin C PO 500 mg DAILY JACQUELINE Administration Cholecalciferol 3,000 unit 08/12/18 09:00 08/12/18 08:40 Vitamin D3 PO 3,000 unit DAILY JACQUELINE Administration Diltiazem HCl 60 mg 08/11/18 21:00 08/12/18 20:04 Cardizem PO 60 mg BID JACQUELINE Administration Diphenhydramine HCl 12.5 mg 08/11/18 23:44 08/12/18 21:43 Benadryl Elixir PO 12.5 mg QPM PRN Administration Insomnia Famotidine 20 mg 08/11/18 21:00 08/12/18 20:04 Pepcid PO 20 mg BID JACQUELINE Administration Guaifenesin 600 mg 08/11/18 21:00 08/12/18 20:04 Mucinex PO 600 mg BID JACQUELINE Administration Vancomycin HCl 1 gm/ 250 mls @ 167 mls/hr 08/12/18 10:00 08/12/18 13:09 Vancomycin HCl 250 mg/ Sodium IV Infused Chloride Q24H JACQUELINE Infusion Piperacillin Sod/Tazobactam 100 mls @ 200 mls/hr 08/12/18 16:00 08/13/18 04:52 Sod 3.375 gm/ Sodium Chloride IV Infused Q6H JACQUELINE Infusion Levothyroxine Sodium 50 mcg 08/12/18 07:00 08/13/18 06:04 Synthroid PO 50 mcg QDAC JACQUELINE Administration Methenamine Hippurate 1 gm 08/11/18 20:00 08/12/18 20:05 Hiprex PO 1 gm Q12H JACQUELINE Administration Midodrine 2.5 mg 08/11/18 22:00 08/13/18 06:04 PO 2.5 mg TID JACQUELINE Administration Polyethylene Glycol 17 gm 08/12/18 09:00 08/12/18 08:39 Miralax PO 17 gm DAILY JACQUELINE Administration Potassium Chloride 10 meq 08/11/18 21:00 08/12/18 20:04 Micro-K PO 10 meq BID JACQUELINE Administration Saccharomyces Boulardii 250 mg 08/12/18 17:00 08/12/18 17:10 Florastor PO 250 mg BIDWM JACQUELINE Administration Sodium Chloride 10 ml 08/11/18 16:28 08/13/18 04:01 Normal Saline Flush 0.9% IVP 10 ml PRN PRN Administration NEEDED PER PROVIDER ORDERS Sodium Chloride 10 ml 08/11/18 17:00 08/13/18 00:13 Normal Saline Flush 0.9% IVP 10 ml 0100,0900,1700 JACQUELINE Administration - Lab Result Fish Bone Diagrams: 08/13/18 05:31 08/13/18 05:31 - Additional Planning My Orders: My Active Orders 08/12/18 09:00 Ascorbic Acid Chew [Vitamin C] 500 mg PO DAILY Cholecalciferol [Vitamin D3] 3,000 unit PO DAILY Polyethylene Glycol 3350 [Miralax] 17 gm PO DAILY 08/12/18 10:00 Vancomycin Inj [Vancomycin] 1 gm Vancomycin Inj 250 mg Sodium Chloride 0.9% [Normal Saline 0.9%] 250 ml IV Q24H 08/12/18 14:06 Daily Weight [RC] 0600 08/12/18 16:00 Piperacillin/Tazobactam [Zosyn] 3.375 gm Sodium Chloride 0.9% Minibag [Normal Saline 0.9% Minibag] 100 ml IV Q6H 08/12/18 17:00 Saccharomyces Boulardii [Florastor] 250 mg PO BIDWM 08/13/18 17:00 levoFLOXacin 750 MG/150 ML [Levaquin 750 mg/150 ml] 750 mg in 150 ml IV Q48H 08/14/18 05:00 BMP - BASIC METABOLIC PANEL [CHEM] DAILYLAB CBC - COMP BLD CT W/AUTO DIFF [HEME] DAILYLAB 08/15/18 09:30 VANCOMYCIN TROUGH [CHEM] Timed Subjective - Subjective Patient Reports: Feeling Better, Shortness of Breath Nursing Reports: Other (HR tomasa to 120's when she was looking for something in her bag, and could not find it) Objective Vital Signs: Vital Signs - 24 hr 08/12/18 08/12/18 08/12/18 08:27 10:55 13:34 Temperature 36.7 C 36.3 C L Heart Rate [ 115 H Activity] Heart Rate [ 93 92 Brachial] Respiratory 20 18 Rate Blood Pressure Blood Pressure 145/78 H [Activity] Blood Pressure 147/77 H 111/52 L [Right Brachial artery] O2 Saturation 95 97 O2 Saturation [ 95 With Activity] 08/12/18 08/12/18 08/12/18 17:00 19:51 20:04 Temperature 36.9 C 36.9 C Heart Rate [ Activity] Heart Rate [ 88 112 H Brachial] Respiratory 18 22 Rate Blood Pressure 160/79 H Blood Pressure [Activity] Blood Pressure 133/75 H 160/79 H [Right Brachial artery] O2 Saturation 97 94 O2 Saturation [ With Activity] 08/12/18 08/13/18 08/13/18 23:40 05:05 07:30 Temperature 37.4 C 36.9 C 36.4 C L Heart Rate [ Activity] Heart Rate [ 98 99 72 Brachial] Respiratory 16 18 18 Rate Blood Pressure Blood Pressure [Activity] Blood Pressure 140/79 H 103/46 L 128/87 H [Right Brachial artery] O2 Saturation 95 95 94 O2 Saturation [ With Activity] Oxygen O2 Source [With Activity] Room air O2 Source Room air I&O (Last 24 Hrs): Intake and Output Totals x24h 08/11/18 08/12/18 08/13/18 23:59 23:59 23:59 Intake Total 0236.192 3547.386 300 Output Total 300 1700 300 Balance 950.833 356.386 0 General: Alert, Oriented x3 HEENT: Mucous membr. moist/pink, Other (Flushed cheeks (less than yesterday)) Neuro: Non Focal Cardiovascular: No murmurs Respiratory: Other (Appeared SOB with talking, but possibly was nervous about something. Diminished breath sounds at bases, no wheezing or rales.) Abdomen: Soft Extremities: No edema - Results Results: Laboratory Results WBC 11.5 x10^3/uL (4.8-10.8) H 08/13/18 05:31 RBC 4.37 10^6/uL (4.20-5.40) 08/13/18 05:31 Hgb 12.3 g/dL (12.0-16.0) 08/13/18 05:31 Hct 37.9 % (37.0-47.0) 08/13/18 05:31 MCV 86.8 fL (81.0-99.0) 08/13/18 05:31 MCH 28.3 pg (27.0-31.0) 08/13/18 05:31 MCHC 32.5 g/dL (32.0-36.0) 08/13/18 05:31 RDW 15.1 % (12.0-15.0) H 08/13/18 05:31 Plt Count 346 10^3/uL (130-450) 08/13/18 05:31 MPV 7.3 fL (7.9-10.8) L 08/13/18 05:31 Neut # (Auto) 7.8 10^3/uL (1.5-6.6) H 08/13/18 05:31 Lymph # (Auto) 1.5 10^3/uL (1.5-3.5) 08/13/18 05:31 [place] # (Auto) 1.7 10^3/uL (0.0-1.0) H 08/13/18 05:31 Eos # (Auto) 0.4 10^3/uL (0.0-0.7) 08/13/18 05:31 Baso # (Auto) 0.1 10^3/uL (0.0-0.1) 08/13/18 05:31 Absolute Nucleated RBC 0.01 x10^3/uL 08/13/18 05:31 Nucleated RBC % 0.1 /100WBC 08/13/18 05:31 Sodium 138 mmol/L (135-145) 08/13/18 05:31 Potassium 4.3 mmol/L (3.5-5.0) 08/13/18 05:31 Chloride 101 mmol/L (101-111) 08/13/18 05:31 Carbon Dioxide 26 mmol/L (21-32) 08/13/18 05:31 Anion Gap 11.0 (6-13) 08/13/18 05:31 BUN 12 mg/dL (6-20) 08/13/18 05:31 Creatinine 0.8 mg/dL (0.4-1.0) 08/13/18 05:31 Estimated GFR (MDRD) 68 (>89) L 08/13/18 05:31 Glucose 114 mg/dL (70-100) H 08/13/18 05:31 Lactic Acid 1.1 mmol/L (0.5-2.2) 08/11/18 16:45 Calcium 8.3 mg/dL (8.5-10.3) L 08/13/18 05:31 Magnesium 2.0 mg/dL (1.7-2.8) 08/12/18 05:46 Total Bilirubin 0.4 mg/dL (0.2-1.0) 08/11/18 14:40 AST 22 IU/L (10-42) 08/11/18 14:40 ALT 37 IU/L (10-60) 08/11/18 14:40 Alkaline Phosphatase 162 IU/L (42-121) H 08/11/18 14:40 Troponin I < 0.04 ng/mL (<0.49) 08/11/18 14:40 B-Natriuretic Peptide 118 pg/mL (5-100) H 08/11/18 14:40 Total Protein 5.4 g/dL (6.7-8.2) L 08/11/18 14:40 Albumin 2.6 g/dL (3.2-5.5) L 08/11/18 14:40 Globulin 2.8 g/dL (2.1-4.2) 08/11/18 14:40 Albumin/Globulin Ratio 0.9 (1.0-2.2) L 08/11/18 14:40 Lipase 117 U/L (22-51) H 08/11/18 14:40 TSH 20.09 uIU/mL (0.34-5.60) H 08/12/18 05:46 Urine Color YELLOW 08/11/18 15:13 Urine Clarity CLEAR (CLEAR) 08/11/18 15:13 Urine pH 5.5 PH (5.0-7.5) 08/11/18 15:13 Ur Specific [place] <=1.005 (1.002-1.030) 08/11/18 15:13 Urine Protein NEGATIVE mg/dL (NEGATIVE) 08/11/18 15:13 Urine Glucose (UA) NEGATIVE mg/dL (NEGATIVE) 08/11/18 15:13 Urine Ketones NEGATIVE mg/dL (NEGATIVE) 08/11/18 15:13 Urine Occult Blood NEGATIVE (NEGATIVE) 08/11/18 15:13 Urine Nitrite NEGATIVE (NEGATIVE) 08/11/18 15:13 Urine Bilirubin NEGATIVE (NEGATIVE) 08/11/18 15:13 Urine Urobilinogen 0.2 (NORMAL) E.U./dL (NORMAL) 08/11/18 15:13 Ur Leukocyte Esterase NEGATIVE (NEGATIVE) 08/11/18 15:13 Ur Microscopic Review NOT INDICATED 08/11/18 15:13 Urine Culture Comments NOT INDICATED 08/11/18 15:13 - Procedures Procedures: Procedures REPLACE L SHOULDER JT W SYNTH SUB, HUMERAL, OPEN (06/26/18) REPOSITION LEFT RADIUS WITH INT FIX, PERC APPROACH (08/17/17)
[2018-08-13] MEDS: SACCHAROMYCES BOULARDII 250 MG CAPSULE PO SCH ×2 (08:52→17:15)
[2018-08-13] MEDS: ASCORBIC ACID CHEW 500 MG TABLET PO SCH (08:53)
[2018-08-13] MEDS: APIXABAN 2.5 MG TABLET PO SCH ×2 (08:53→20:38)
[2018-08-13] MEDS: POTASSIUM CHLORIDE 10 MEQ CAPSULE PO SCH ×2 (08:53→20:36)
[2018-08-13] MEDS: METHENAMINE HIPPURATE 1 GM TABLET PO SCH ×2 (08:53→20:38)
[2018-08-13] MEDS: guaiFENesin 600 MG TABLET PO SCH ×2 (08:56→20:38)
[2018-08-13] MEDS: CHOLECALCIFEROL 1,000 UNIT TABLET PO SCH (08:56)
[2018-08-13] MEDS: FAMOTIDINE 20 MG TABLET PO SCH ×2 (08:56→20:38)
[2018-08-13] MEDS: POLYETHYLENE GLYCOL 3350 17 GM PACKET PO SCH (08:57)
[2018-08-13] MEDS: VANCOMYCIN INJ 1 GM, VANCOMYCIN INJ 250 MG in SODIUM CHLORIDE 0.9% 250 ML IV SCH (10:49)
[2018-08-13] MEDS: LEVALBUTEROL 1.25 MG/3 ML NEB INH SCH ×2 (16:24→21:15)
[2018-08-13] MEDS ORDERED: levoFLOXacin 750 MG/150 ML 750 MG/150 ML BAG IV SCH (17:00)
[2018-08-14] MEDS: PIPERACILLIN/TAZOBACTAM 3.375 GM in SODIUM CHLORIDE 0.9% MINIBAG 100 ML IV SCH ×3 (04:12→16:24)
[2018-08-14] MEDS: SODIUM CHLORIDE FLUSH 0.9% 10 ML SYRINGE IVP PRN (04:13)
[2018-08-14 05:30] LABS: BASOPHILS # (AUTO) 0.1 10^3/uL (0.0-0.1); BASOPHILS % (AUTO) 0.7 %; EOSINOPHILS # (AUTO) 0.3 10^3/uL (0.0-0.7); EOSINOPHILS % (AUTO) 2.4 %; HGB - HEMOGLOBIN 11.7 g/dL (12.0-16.0); LYMPHOCYTES # (AUTO) 1.2 10^3/uL (1.5-3.5); LYMPHOCYTES % (AUTO) 10.5 %; MEAN CORPUSCULAR HEMOGLOBIN 28.1 pg (27.0-31.0); MEAN CORPUSCULAR HGB CONC 32.3 g/dL (32.0-36.0); MEAN PLATELET VOLUME 7.4 fL (7.9-10.8); MONOCYTES # (AUTO) 1.5 10^3/uL (0.0-1.0); MONOCYTES % (AUTO) 13.3 %; NEUTROPHILS # (AUTO) 8.3 10^3/uL (1.5-6.6); NEUTROPHILS % (AUTO) 73.1 %; PLT - PLATELET COUNT 328 10^3/uL (130-450); RED BLOOD COUNT 4.17 10^6/uL (4.20-5.40); RED CELL DISTRIBUTION WIDTH 15.2 % (12.0-15.0); WHITE BLOOD COUNT 11.4 x10^3/uL (4.8-10.8)
[2018-08-14 05:39] LABS: CALCIUM 8.1 mg/dL (8.5-10.3); CREATININE 0.7 mg/dL (0.4-1.0)
[2018-08-14] MEDS: MIDODRINE 2.5 MG TABLET PO SCH ×3 (07:08→21:22)
[2018-08-14] MEDS: LEVOTHYROXINE 75 MCG TABLET PO SCH (07:12)
[2018-08-14] MEDS: LEVALBUTEROL 1.25 MG/3 ML NEB INH SCH ×3 (07:15→20:44)
[2018-08-14] MEDS: ASCORBIC ACID CHEW 500 MG TABLET PO SCH (08:02)
[2018-08-14] MEDS: FAMOTIDINE 20 MG TABLET PO SCH ×2 (08:02→21:20)
[2018-08-14] MEDS: APIXABAN 2.5 MG TABLET PO SCH ×2 (08:02→21:20)
[2018-08-14] MEDS: METHENAMINE HIPPURATE 1 GM TABLET PO SCH ×2 (08:02→21:20)
[2018-08-14] MEDS: POTASSIUM CHLORIDE 10 MEQ CAPSULE PO SCH ×2 (08:02→21:21)
[2018-08-14] MEDS: CHOLECALCIFEROL 1,000 UNIT TABLET PO SCH (08:03)
[2018-08-14] MEDS: guaiFENesin 600 MG TABLET PO SCH ×2 (08:04→21:21)
[2018-08-14] MEDS: SODIUM CHLORIDE FLUSH 0.9% 10 ML SYRINGE IVP SCH ×3 (08:04→23:45)
[2018-08-14] MEDS: SACCHAROMYCES BOULARDII 250 MG CAPSULE PO SCH ×2 (08:04→17:27)
[2018-08-14] MEDS: POLYETHYLENE GLYCOL 3350 17 GM PACKET PO SCH (08:05)
[2018-08-14] MEDS: VANCOMYCIN INJ 1 GM, VANCOMYCIN INJ 250 MG in SODIUM CHLORIDE 0.9% 250 ML IV SCH (11:10)
--- NOTE | 2018-08-14 13:14 | MISCELLANEOUS PROVIDER NOTE ---
Miscellaneous Provider Note - - Note: HPI: This is an 88-year-old white female who lives alone and has a history of remote coronary artery disease, chronic atrial fibrillation on Eliquis, remote rectal cancer and was treated with chemotherapy and radiation, DJD, hypothyroidism, COPD; several falls over this year, one lead to a fractured humerus for which she needed elective admission for orthopedic surgery and developed torsades V. tach during surgery on telemetry needed longer hospital stay with hospitalist managing her course, this was just 6 weeks ago. She was also orthostatic, and her triamterene/hydrochlorothiazide was stopped, and she needed midodrine For her orthostatic hypotension. She was discharged to a [facility] for physical therapy and just returned to her house approximately 1 week ago prior to admission. Over this 1 week, she has slowly developed worsening shortness of breath and weakness, and then developed right-sided chest pain, with slightly tachypneic and pleuritic type chest pain noted brought to the ER and found to be hypoxic saturation of below 90%, hypotensive with a systolic of 99 mmHg, describing feeling weak short of breath during activity and dyspnea on exertion. Her ER work-up revealed bilateral lung infiltrates on chest x-ray consistent with healthcare associated pneumonia, she was admitted for further evaluation management treatment. Subjective: Patient seen at bedside with weakness and some audible wheezing associated with her shortness of breath otherwise with no acute pulmonary events. Objective: Vital signs hemodynamically stable, afebrile, heart rate variable 93 to 115 bpm irregular and in RVR A. fib, RR 18, 95% O2 saturation room air. General: Patient is weak and somewhat ill-appearing in no acute respiratory distress. Speaking full sentences. HEENT: NCAT. No buccal lesions. No scleral icterus. No conjunctival pallor. Neck: No JVD, no bruits, no lymphadenopathy, no thyromegaly next CV/lungs: Irregular rate and rhythm, no murmurs, gallops, clicks. Decreased breath sounds to bases with some audible wheezing scattered faint with mild rales. No increased work of breath or retractions. Abdomen: no HSm, mild distention Extremities/skin: No edema, clubbing, or cyanosis. Neuro: Grossly intact Labs: Reviewed Imaging studies: Reviewed Assessment/plan (1) HCAP (healthcare-associated pneumonia) Assessment/Plan: Chest x-ray revealed bilateral infiltrates consistent with age. WBC improving daily, continue with current IV antibiotics with Levaquin, Zosyn, vancomycin. Sputum growing rare gram-positive cocci with few WBCs. Continue with Florastor/lactobacillus for gut leon prophylaxis. Transition to oral antibiotics with Augmentin plus doxycycline. Return to [facility] once patient is accepted. (2) Bilateral pleural effusions resulting in CHF (congestive heart failure), Likely secondary to transient fluid overload Assessment/Plan: The chest x-ray was read as having continued volume overload as well as bilateral effusions. She received only 1 L of IV hydration because of the clinical dehydration, then it was stopped. She does not have systolic heart failure. In June 2018, during the last admission here, she had an Echocardiogram showing an LVEF of 60 to 65%, and diastolic dysfunction could not be assessed. Continue to monitor her I's and O's and daily weights. (3) COPD exacerbation Assessment/Plan: Will add scheduled nebs with RT with xoponex instead of duonebs, add Pulmicort and Singulair to her regimen along with Acapella and incentive spirometry. Pulmonary toileting. (4) Hypothyroidism Assessment/Plan: The TSH is abnormally elevated indicating inadequate thyroid replacement. Continue with Synthroid at 75 mcg p.o. daily (5) Weakness Assessment/Plan: Patient became deconditioned quickly, with this pneumonia. PT started working with the patient and recommends PT rehab at a SNF again (she was just discharged from [facility] in [place] where she stayed for 5 weeks after the last hospitalization here). SW informed that patient prefers [facility] again if possible. Physical therapy recommends outpatient PT. (6) Orthostatic hypotension Assessment/Plan: Continue on her Midodrine 3 times daily, she has fluctuating blood pressures but none are severely hypotensive. No orthostatic vital signs are ordered, since we know that she has orthostasis. (7) Chronic a-fib Assessment/Plan: Her heart rate was controlled on Cardizem, until she was nervous or frustrated. Continue Cardizem 60 mg 3 times daily now. She remains on Eliquis anticoagulation for stroke prevention, as before admission. CODE STATUS: Full code
[2018-08-14] MEDS: AMOX/CLAV 875 MG/125 MG TABLET PO SCH (18:16)
[2018-08-14] MEDS: BUDESONIDE 0.5 MG/2 ML NEB INH SCH (20:44)
[2018-08-14] MEDS ORDERED: MONTELUKAST 10 MG TABLET PO SCH (21:00)
[2018-08-14] MEDS: DOXYCYCLINE 100 MG TABLET PO SCH (21:21)
[2018-08-15 05:14] LABS: BASOPHILS % (AUTO) 0.3 %; EOSINOPHILS # (AUTO) 0.3 10^3/uL (0.0-0.7); EOSINOPHILS % (AUTO) 1.8 %; HGB - HEMOGLOBIN 12.6 g/dL (12.0-16.0); LYMPHOCYTES % (AUTO) 7.2 %; MEAN CORPUSCULAR HEMOGLOBIN 28.1 pg (27.0-31.0); MEAN CORPUSCULAR HGB CONC 32.2 g/dL (32.0-36.0); MEAN CORPUSCULAR VOLUME 87.4 fL (81.0-99.0); MEAN PLATELET VOLUME 7.8 fL (7.9-10.8); MONOCYTES # (AUTO) 1.2 10^3/uL (0.0-1.0); MONOCYTES % (AUTO) 8.6 %; NEUTROPHILS # (AUTO) 11.8 10^3/uL (1.5-6.6); NEUTROPHILS % (AUTO) 82.1 %; PLT - PLATELET COUNT 368 10^3/uL (130-450); RED CELL DISTRIBUTION WIDTH 15.5 % (12.0-15.0); WHITE BLOOD COUNT 14.4 x10^3/uL (4.8-10.8)
[2018-08-15 05:25] LABS: ALBUMIN 2.8 g/dL (3.2-5.5); CALCIUM 8.1 mg/dL (8.5-10.3); CREATININE 0.7 mg/dL (0.4-1.0); PHOSPHORUS 3.3 mg/dL (2.5-4.6)
[2018-08-15] MEDS: LEVOTHYROXINE 75 MCG TABLET PO SCH (06:08)
[2018-08-15] MEDS: MIDODRINE 2.5 MG TABLET PO SCH (06:09)
[2018-08-15] MEDS: BUDESONIDE 0.5 MG/2 ML NEB INH SCH (07:53)
[2018-08-15] MEDS: LEVALBUTEROL 1.25 MG/3 ML NEB INH SCH (07:53)
[2018-08-15] MEDS ORDERED: DIPHENOX/ATROPINE 2.5/0.025 MG TABLET PO PRN (08:06)
[2018-08-15] MEDS ORDERED: LACTOBACILLUS RHAMNOSUS GG CAPSULE PO SCH (09:00)
[2018-08-15] MEDS ORDERED: SODIUM CHLORIDE 1 GM TABLET PO SCH (09:00)
[2018-08-15] MEDS ORDERED: FUROSEMIDE 40 MG TABLET PO SCH (09:00)
[2018-08-15] MEDS ORDERED: FUROSEMIDE 20 MG/2 ML VIAL IVP SCH (09:00)
[2018-08-15] MEDS: CHOLECALCIFEROL 1,000 UNIT TABLET PO SCH (09:12)
[2018-08-15] MEDS: AMOX/CLAV 875 MG/125 MG TABLET PO SCH (09:12)
[2018-08-15] MEDS: guaiFENesin 600 MG TABLET PO SCH (09:12)
[2018-08-15] MEDS: METHENAMINE HIPPURATE 1 GM TABLET PO SCH (09:12)
[2018-08-15] MEDS: APIXABAN 2.5 MG TABLET PO SCH (09:13)
[2018-08-15] MEDS: ASCORBIC ACID CHEW 500 MG TABLET PO SCH (09:13)
[2018-08-15] MEDS: DOXYCYCLINE 100 MG TABLET PO SCH (09:13)
[2018-08-15] MEDS: POTASSIUM CHLORIDE 10 MEQ CAPSULE PO SCH (09:13)
[2018-08-15] MEDS: SACCHAROMYCES BOULARDII 250 MG CAPSULE PO SCH (09:13)
[2018-08-15] MEDS: SODIUM CHLORIDE FLUSH 0.9% 10 ML SYRINGE IVP SCH (09:14)
[2018-08-15] MEDS: POLYETHYLENE GLYCOL 3350 17 GM PACKET PO SCH (09:14)
[2018-08-15] MEDS: FAMOTIDINE 20 MG TABLET PO SCH (09:14)
--- NOTE | 2018-08-15 09:45 | XRAY Report ---
Reason: PNA Procedure Date: 08/15/2018 Accession Number: [id number] / [id number] Procedure: XR - Chest 1 View X-Ray CPT Code: 71458 FULL RESULT: EXAM: CHEST RADIOGRAPHY EXAM DATE: 08/15/2018 08:27 AM. CLINICAL HISTORY: PNA. COMPARISON: CHEST 1 VIEW 08/12/2018 5:41 AM XR CHEST 2V PA/LAT 09/21/2005 7:48 PM CHEST 2 VIEW PA/LAT 03/12/2015 2:10 AM CHEST 2 VIEW PA/LAT 10/11/2015 5:41 AM CHEST 1 VIEW 08/11/2018 1:14 PM. TECHNIQUE: Semi-upright AP view. FINDINGS: Lungs/Pleura: Small left greater than right pleural effusions, as before. Decreased mild left greater than right basilar lung consolidation. Upper lungs clear. No interstitial abnormality. No gross pneumothorax. Mediastinum: Within exam limitations, the cardiomediastinal contour is normal. Mild aortic arch calcification. Other: Left total shoulder arthroplasty, as before. 9 mm rounded density projecting over the right humeral neck likely is outside of the patient, as it is not seen on recent or remote radiographs. IMPRESSION: 1. Small left greater than right pleural effusions, as before. 2. Decreased mild left greater than right basilar airspace opacities which could reflect pneumonia or atelectasis. RADIA
--- NOTE | 2018-08-15 11:02 | Discharge Plan ---
"Discharge Plan for SNF / [facility] - Discharge Plan And Transition Orders Disposition: 03 SNF DC/Xfer Condition: Good Allergies and Adverse Reactions: Allergies Allergy/AdvReac Type Severity Reaction Status Date / Time ciprofloxacin [From Cipro] AdvReac increased Verified 08/17/17 07:03 pain Sulfa (Sulfonamide AdvReac Nausea Verified 08/17/17 07:03 Antibiotics) - SNF / CARE HOME Transition Orders Admit to (Facility): [facility] Under the care of (Name): Philip Chávez Discharge Diagnosis: (1) HCAP (healthcare-associated pneumonia, Improved (2) Bilateral pleural effusions resulting in CHF (congestive heart failure), Likely secondary to transient fluid overload, Stable (3) COPD exacerbation, Improved (4) Hypothyroidism, Stable (5) Generalized Weakness, Stable (6) Orthostatic hypotension, Stable (7) Chronic a-fib, Stable Medicare Certification Statement: I certify that [facility] care is medically necessary on a continuing basis for any of the conditions for which she/he is receiving care during hospitalization. Notify PCP of admission and forward orders to primary provider for signature. Weight on admission and: Daily Other Notification Orders: Call PCP immediately if patient develops dyspnea, chest pain/tightness or edema. House Bowel Program: Yes Additional Bowel Program Orders: If no BM after 2 days, nurse may give M.O.M. 30ml PO PRN and/or ducolax Supp 1 SD and/or PORTER 250mg P.O., and/or senna 1-2 tabs PO. On day 3 nurse may give repeat above order until residents constipation is resolved. Annual Influenza Vaccine (between Nov 04 and June 03): Yes Two-step PPD per [facility] [phone] or approved exception documents: No Treatments & Other Orders: Please see discharge MAR Lab Tests or X-ray Orders: CBC and renal panel q. weekly Medication Orders: PLEASE REFER TO THE DISCHARGE MEDICATION LIST. Insulin Orders?: No - Medications New Prescriptions: Doxycycline Hyclate 100 mg PO BID 6 Days #12 tablet Loperamide [Imodium] 2 mg PO QID PRN #40 capsule PRN Reason: Diarrhea Saccharomyces Boulardii [Florastor] 250 mg PO DAILY #10 capsule - Diet Type: No added salt Texture: Regular Liquids: Thin May have monthly special meal: Yes - Therapies | Activity Therapy: Evaluation | Treat if indicated: PT, OT Rehabilitation Potential: Maximize functional status, Return to independent living, Maintain present ADL Functional Activity: Activity as Tolerated Assistance Devices: Walker Additional Instructions: You were admitted for Healthcare associated pneumonia for which he received intravenous antibiotics. Throughout your hospitalization your COPD also was managed with inhalers in particular Xopenex which would not influence your chronic atrial fibrillation for which you had Eliquis resumed. On top of your hypertension and hypothyroidism your medications were resumed while being hospitalized. You were given Midrin for your orthostatic hypotension. Due to your diuretics you had hyponatremia and were given sodium chloride which did not agree with you. You had diarrhea as a result of possible antibiotic use. You were given to probiotics to offset this and provide you with got leon prophylaxis and prevent opportunistic infections. Your sputum grew out rare gram-positive cocci in pairs likely Streptococcus which we were treating for while you are being hospitalized. You are qualified for a longterm facility in [facility] [place] So you may continue with continued physical therapy as well as occupational therapy as needed. You were found to have some fluid overload and were offered Lasix to diuresis and decrease excessive fluid buildup in your lungs which was seen on your chest x-ray before you got discharged. Your pneumonia usually takes anywhere from 1 to 2 weeks for complete resolution. He will continue with Augmentin and doxycycline which are 2 antibiotics to continue for 6 more days in addition with your probiotics. Your diarrhea will be addressed with Imodium which will be taken as needed. However, your stools will be sent to see if you have an opportunistic infection as a result of giving you intravenous/oral antibiotics. Your COPD will be managed with inhaled Pulmicort which is a steroid which will improve the inflammation of your airways. Singulair was added to your regimen which would also help with your COPD long-term. We will provide daily weights at the longterm facility as well as check your labs every week or so. He will follow-up with David Castillo in approximately 1 or 2 weeks to re-evaluate your need for a repeat CXR or medical management on your medical conditions. Follow Up: Follow-up with PCP David Castillo in 1 or 2 weeks."
--- NOTE | 2018-08-15 11:24 | DISCHARGE SUMMARY ---
Discharge Summary Admit Date: 08/11/18 Discharge Date: 08/15/18 Discharging Provider: Dr. Mcdermott Primary Care Provider: David Castillo Code Status: Attempt Resuscitation Condition at Discharge: Good Discharge Disposition: SNF DC/Xfer Discharge Facility Name: [facility] - DIAGNOSES Admission Diagnoses: 1. HCAP 2. COPD 3. Chronic atrial fibrillation 4. Orthostatic hypotension 5. Hypothyroidism 7. Hypokalemia 8. Hypoalbuminemia 9. Protein-calorie malnutrition (present on admission) Discharge Diagnoses with Status of Each Condition: (1) HCAP (healthcare-associated pneumonia), Improved (2) Bilateral pleural effusions resulting in CHF (congestive heart failure), Likely secondary to transient fluid overload, Improved (3) COPD exacerbation, Improved (4) Hypothyroidism, Stable (5) Generalized Weakness, Stable (6) Orthostatic hypotension, Stable (7) Chronic a-fib, Stable (8) Hypokalemia, resolved (9) Hypoalbuminemia with associated protein calorie malnutrition (present on admission), stable - HPI History of Present Illness: This is an 88-year-old white female who lives alone and has a history of remote coronary artery disease, chronic atrial fibrillation on Eliquis, remote rectal cancer and was treated with chemotherapy and radiation, DJD, hypothyroidism, COPD; several falls over this year, one lead to a fractured humerus for which she needed elective admission for orthopedic surgery and developed torsades V. tach during surgery on telemetry needed longer hospital stay with hospitalist managing her course, this was just 6 weeks ago. She was also orthostatic, and her triamterene/hydrochlorothiazide was stopped, and she needed midodrine For her orthostatic hypotension. She was discharged to a [facility] for phys ical therapy and just returned to her house approximately 1 week ago prior to admission. Over this 1 week, she has slowly developed worsening shortness of breath and weakness, and then developed right-sided chest pain, with slightly tachypneic and pleuritic type chest pain noted brought to the ER and found to be hypoxic saturation of below 90%, hypotensive with a systolic of 99 mmHg, describing feeling weak short of breath during activity and dyspnea on exertion. Her ER work-up revealed bilateral lung infiltrates on chest x-ray consistent with healthcare associated pneumonia, she was admitted for further evaluation management treatment. - HOSPITAL COURSE Hospital Course: Patient was admitted for HCAP, Initially managed with IV antibiotics and tra nsitioned over to oral antibiotics. Patient had acute fluid overload with bilateral pleural effusions for which patient received diuretics and had electrolyte disturbances which were corrected. In June 2018, during the last admission here, she had an Echocardiogram showing an LVEF of 60 to 65%, and diastolic dysfunction could not be assessed. Pulmicort, singular, Xopenex nebs as well as pulmonary toileting were administered. Sputum culture yielded gram- positive cocci in pairs presumedly Streptococcus. Blood cultures were negative growth today. Patient developed diarrhea to loose stool episodes likely as a result of antibiotic use. C. difficile pending on discharge. Chest x-ray showed improved aeration to the left airspace opacity more than the right with small pleural effusion noted to be improved as well. WBC count did rise at 14.4 prior to discharge from a prior 11.4 with no fevers and variable rate of chronic atrial fibrillation which was rate controlled with diltiazem and anticoagulated with Eliquis. In addition patient was de-escalated to Augmentin and doxycycline upon discharge to continue for 6 more days at the [facility]. Patient was deemed candidate for PT/OT at [facility]. BNP of 229 was addressed with Lasix dose prior to discharge. Patient had one episode of vomiting after given sodium chloride tablet for patient's sodium of 133 presumedly from fluid overload. Patient to continue with medical management, PT/OT at [place]. To follow-up with PCP within 1 or 2 weeks for reevaluation of patient's HCAP as well as other medical conditions. - ALLERGIES Allergies/Adverse Reactions: Allergies Allergy/AdvReac Type Severity Reaction Status Date / Time ciprofloxacin [From Cipro] AdvReac increased Verified 08/17/17 07:03 pain Sulfa (Sulfonamide AdvReac Nausea Verified 08/17/17 07:03 Antibiotics) - MEDICATIONS Home Medications: Ambulatory Orders Medication Instructions Recorded Confirmed Apixaban [Eliquis] 2.5 mg PO BID 03/12/15 08/11/18 Methenamine Hippurate 1 gm PO Q12H 08/15/17 08/11/18 Ascorbic Acid [Vitamin C] 500 mg PO DAILY 06/14/18 08/11/18 Cholecalciferol (Vitamin D3) 3,000 unit PO DAILY 06/14/18 08/11/18 [Vitamin D3] Levothyroxine Sodium [Synthroid] 50 mcg PO QDAC 06/26/18 08/11/18 Midodrine 2.5 mg PO TID #90 tablet 06/29/18 08/11/18 diltiaZEM [Cardizem] 60 mg PO BID #60 tablet 06/29/18 08/12/18 Potassium Chloride 10 meq PO BID 08/11/18 08/11/18 Triamterene/Hydrochlorothiazid 1 cap PO DAILY 08/11/18 08/11/18 [Triamterene-Hctz 37.5-25 mg Cp] Trazodone HCl 100 mg PO QPM PRN 08/12/18 08/12/18 Amox/Clav 875/125 [Augmentin 1 tab PO BIDWM 6 Days #12 tablet 08/15/18 875/125] Budesonide [Pulmicort] 0.5 mg INH RTBID neb 08/15/18 Doxycycline Hyclate 100 mg PO BID 6 Days #12 tablet 08/15/18 Famotidine [Pepcid] 20 mg PO BID tablet 08/15/18 Lactobacillus Rhamnosus GG 1 cap PO DAILY #30 capsule 08/15/18 [Culturelle] Levalbuterol [Xopenex] 1.25 mg INH RTTID neb 08/15/18 Loperamide [Imodium] 2 mg PO QID PRN #40 capsule 08/15/18 Montelukast [Singulair] 10 mg PO QPM tablet 08/15/18 Polyethylene Glycol 3350 [Miralax] 17 gm PO DAILY packet 08/15/18 Saccharomyces Boulardii [Florastor] 250 mg PO DAILY #10 capsule 08/15/18 Sodium Chloride [Salt Tab] 1 gm PO BID tablet 08/15/18 guaiFENesin [Mucinex] 600 mg PO BID tablet 08/15/18 - PHYSICAL EXAM AT DISCHARGE General Appearance: positive: No acute distress, Alert Eyes Bilateral: positive: Normal inspection, PERRL, EOMI ENT: positive: ENT inspection nml, Pharynx nml, No signs of dehydration Neck: positive: Nml inspection, Thyroid nml, No JVD, Trachea midline. negative: Thyromegaly Respiratory: positive: Chest non-tender, No respiratory distress, Wheezes (Scattered), Rales (Mild bibasilar improved aeration). negative: Rhonchi Cardiovascular: positive: No murmur, Irregularly irregular. negative: JVD present Peripheral Pulses: positive: 2+ Abdomen: positive: Non-tender, No organomegaly, Nml bowel sounds, No distention. negative: Tenderness Skin: positive: Color nml, No rash, Warm Extremities: positive: Non-tender, Full ROM, Nml appearance Neurologic/Psychiatric: positive: Oriented x3, CN's nml (2-12) - LABS Result Diagrams: 08/15/18 04:35 08/15/18 04:35 - DIAGNOSTIC IMAGING Diagnostic Imaging Results: Final report reviewed - QUALITY (Female Hip Fx Only) Was patient sent home on osteoporosis medication?: No - FOLLOW UP Follow Up: PCP to follow-up in 1 or 2 weeks - TIME SPENT Time Spent in Discharge (Minutes): 35
[2018-08-15 12:08] VITALS: BP 111/63
== END 2018-08-15 12:25 | DRG 194 ==
LOC: EDUNIT# → ED 13:06 → MS2 16:28
PROVIDERS: ADMIT Internal Medicine; ATTEND Family Medicine
DX: J18.1 Lobar pneumonia, unspecified organism (principal); J15.4 Pneumonia due to other streptococci; J44.0 Chronic obstructive pulmonary disease with (acute) lower respiratory infection; J44.1 Chronic obstructive pulmonary disease with (acute) exacerbation; E46 Unspecified protein-calorie malnutrition; K52.1 Toxic gastroenteritis and colitis; J44.9 Chronic obstructive pulmonary disease, unspecified; I48.2 Chronic atrial fibrillation; I50.9 Heart failure, unspecified; E03.9 Hypothyroidism, unspecified; K59.09 Other constipation; R64 Cachexia; E87.1 Hypo-osmolality and hyponatremia; Y95 Nosocomial condition; Z68.26 Body mass index [BMI] 26.0-26.9, adult; R32 Unspecified urinary incontinence; I11.0 Hypertensive heart disease with heart failure; M81.0 Age-related osteoporosis without current pathological fracture; I95.1 Orthostatic hypotension; E87.6 Hypokalemia; E87.79 Other fluid overload; T36.95XA Adverse effect of unspecified systemic antibiotic, initial encounter; T50.2X5A Adverse effect of carbonic-anhydrase inhibitors, benzothiadiazides and other diuretics, initial encounter; Y92.230 Patient room in hospital as the place of occurrence of the external cause; E83.51 Hypocalcemia; E86.0 Dehydration; G89.29 Other chronic pain; M54.9 Dorsalgia, unspecified; M19.90 Unspecified osteoarthritis, unspecified site; Z96.611 Presence of right artificial shoulder joint; I25.10 Atherosclerotic heart disease of native coronary artery without angina pectoris; Z79.891 Long term (current) use of opiate analgesic; Z79.01 Long term (current) use of anticoagulants; Z79.899 Other long term (current) drug therapy; Z86.711 Personal history of pulmonary embolism; Z86.718 Personal history of other venous thrombosis and embolism; Z86.73 Personal history of transient ischemic attack (TIA), and cerebral infarction without residual deficits; Z87.19 Personal history of other diseases of the digestive system; Z85.048 Personal history of other malignant neoplasm of rectum, rectosigmoid junction, and anus; Z92.3 Personal history of irradiation; Z92.21 Personal history of antineoplastic chemotherapy; Z91.81 History of falling; Z85.828 Personal history of other malignant neoplasm of skin
CPT/HCPCS: 36415; 71045; 80048; 80053; 80069; 81003; 83605; 83690; 83735; 83880; 84443; 84484; 85025; 87040; 87045; 87046; 87070; 87205; 87493; 93005; 94640; 96374; 97116; 97162; 97165; 97530; 99285; A9270; J3370; J7626; 81001; 87086; 99284

== ENCOUNTER 2018-10-11 15:43 | Outpatient (CLI) | payer MEDICARE, OTHER ==
[2018-10-11 17:37] LABS: HGB - HEMOGLOBIN 12.4 g/dL (12.0-16.0); MEAN CORPUSCULAR HEMOGLOBIN 27.7 pg (27.0-31.0); MEAN CORPUSCULAR HGB CONC 31.1 g/dL (32.0-36.0); MEAN CORPUSCULAR VOLUME 89.1 fL (81.0-99.0); MEAN PLATELET VOLUME 10.4 fL (7.9-10.8); RED BLOOD COUNT 4.48 10^6/uL (4.20-5.40); RED CELL DISTRIBUTION WIDTH 15.2 % (12.0-15.0); WHITE BLOOD COUNT 9.8 x10^3/uL (4.8-10.8)
[2018-10-11 17:56] LABS: CALCIUM 8.7 mg/dL (8.5-10.3); CREATININE 0.8 mg/dL (0.4-1.0)
== END 2018-10-11 15:44 | disposition home or self-care (01) ==
LOC: LAB.S 15:43
PROVIDERS: ATTEND Internal Medicine
DX: I48.91 Unspecified atrial fibrillation (principal); E03.9 Hypothyroidism, unspecified
CPT/HCPCS: 36415; 80048; 84443; 85027

== ENCOUNTER 2019-02-26 11:35 | Outpatient (CLI) | payer MEDICARE, OTHER ==
--- NOTE | 2019-02-26 13:03 | Mammography Report ---
Reason: LUMP ON LT BREAST WITH PAIN Procedure Date: 02/26/2019 Accession Number: [id number] / [id number] Procedure: G[facility]ARDO - Diagnostic Dig Bilat CPT Code: Final Report FULL RESULT: EXAM: Diagnostic Dig Bilat DATE: 02/26/2019 12:20 PM CLINICAL HISTORY: Diagnostic examination. TECHNIQUE: (B) - Bilateral CC and MLO views were obtained. Left laterally exaggerated cc view and left LM view are obtained. COMPARISON: 05/29/2014 through 01/07/2010. PARENCHYMAL PATTERN: (F) - The breast(s) demonstrate(s) diffuse fatty replacement. FINDINGS: Typically benign vascular calcifications are noted. There are no suspicious masses, calcifications, or areas of distortion. IMPRESSION: Benign findings. BI-RADS category 2. RECOMMENDATION: (ANNUAL) - Recommend routine annual screening mammography. BI-RADS CATEGORY: (2) - Benign Findings. STANDARD QUALIFYING STATEMENTS: 1. This examination was not reviewed with the aid of Computer-Aided Detection (CAD). 2. A negative or benign imaging report should not preclude biopsy if clinically suspicious findings are present. 3. Dense breasts may obscure an underlying neoplasm. 4. This examination was reviewed without the aid of 3D breast imaging (tomosynthesis).
== END 2019-02-26 11:36 | disposition home or self-care (01) ==
LOC: DI 11:35
PROVIDERS: ATTEND Internal Medicine
DX: N64.4 Mastodynia (principal)
CPT/HCPCS: 77066

== ENCOUNTER 2019-08-16 12:04 | Outpatient (CLI) | payer MEDICARE, OTHER ==
[2019-08-16 14:43] LABS: BASOPHILS # (AUTO) 0.1 10^3/uL (0.0-0.1); BASOPHILS % (AUTO) 0.8 %; EOSINOPHILS # (AUTO) 0.2 10^3/uL (0.0-0.7); EOSINOPHILS % (AUTO) 2.9 %; HGB - HEMOGLOBIN 13.2 g/dL (12.0-16.0); LYMPHOCYTES # (AUTO) 1.6 10^3/uL (1.5-3.5); LYMPHOCYTES % (AUTO) 25.7 %; MEAN CORPUSCULAR HEMOGLOBIN 29.7 pg (27.0-31.0); MEAN CORPUSCULAR HGB CONC 32.1 g/dL (32.0-36.0); MEAN CORPUSCULAR VOLUME 92.4 fL (81.0-99.0); MEAN PLATELET VOLUME 10.7 fL (7.9-10.8); MONOCYTES # (AUTO) 0.8 10^3/uL (0.0-1.0); MONOCYTES % (AUTO) 12.5 %; NEUTROPHILS # (AUTO) 3.6 10^3/uL (1.5-6.6); NEUTROPHILS % (AUTO) 57.8 %; PLT - PLATELET COUNT 239 10^3/uL (130-450); RED BLOOD COUNT 4.45 10^6/uL (4.20-5.40); RED CELL DISTRIBUTION WIDTH 14.1 % (12.0-15.0); WHITE BLOOD COUNT 6.2 x10^3/uL (4.8-10.8)
[2019-08-16 15:12] LABS: ALBUMIN 3.9 g/dL (3.2-5.5); ALBUMIN/GLOBULIN RATIO 1.3 (1.0-2.2); CALCIUM 8.8 mg/dL (8.5-10.3); CREATININE 0.8 mg/dL (0.4-1.0)
== END 2019-08-16 12:05 | disposition home or self-care (01) ==
LOC: LAB.S 12:04
PROVIDERS: ATTEND Internal Medicine
DX: E03.9 Hypothyroidism, unspecified (principal); I48.91 Unspecified atrial fibrillation; Z79.01 Long term (current) use of anticoagulants
CPT/HCPCS: 36415; 80053; 84443; 85025

== ENCOUNTER 2019-09-10 17:24 | Emergency (ER) | payer MEDICARE, OTHER ==
--- NOTE | 2019-09-10 18:50 | ED Physician Documentation ---
History of Present Illness - Stated complaint Stated Complaint: LT LEG SWELL - Chief complaint Chief Complaint: Ext Problem - History obtained from History obtained from: Patient, Family - History of Present Illness Pain level max: 0 Pain level now: 0 - Additonal information Additional information: 89-year-old female presents to the emergency department left lower extremity swelling for the past 2 days. Nothing makes it better or worse. She was seen at the walk-in clinic today and sent here for an ultrasound for possible DVT. No fevers. No chills. No redness. She is on Eliquis, twice a day for atrial fibrillation. No history of blood clots. She does have a remote history of trauma to the leg. She had an open tib-fib fracture several years ago. No shortness of breath. No chest pain. She states that she misses 1-2 doses of her Eliquis monthly. Review of Systems Ten Systems: 10 systems reviewed and negative Constitutional: denies: Fever, Chills GI: denies: Vomiting, Diarrhea Skin: denies: Rash Musculoskeletal: denies: Neck pain, Back pain Neurologic: denies: Headache PD PAST MEDICAL HISTORY - Past Medical History Cardiovascular: Congestive heart failure, Coronary artery disease, Deep vein thrombosis, Pulmonary embolism, Arrhythmia Respiratory: None Neuro: TIA Endocrine/Autoimmune: HyPOthyroidism GI: Colon polyps, Chronic constipation, Other : None, Incontinence HEENT: None Psych: None Musculoskeletal: Osteoporosis, Chronic back pain Derm: Other - Past Surgical History Past Surgical History: Yes General: Colonoscopy Ortho: Spine surgery, 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 Cardiovascular: Other HEENT: Cataracts, Tonsil/Adenoidectomy Derm: Skin cancer surgery - Present Medications Home Medications: Ambulatory Orders Medication Instructions Recorded Confirmed Apixaban [Eliquis] 2.5 mg PO BID 03/12/15 08/11/18 Methenamine Hippurate 1 gm PO Q12H 08/15/17 08/11/18 Ascorbic Acid [Vitamin C] 500 mg PO DAILY 06/14/18 08/11/18 Cholecalciferol (Vitamin D3) 3,000 unit PO DAILY 06/14/18 08/11/18 [Vitamin D3] Levothyroxine Sodium [Synthroid] 50 mcg PO QDAC 06/26/18 08/11/18 Midodrine 2.5 mg PO TID #90 tablet 06/29/18 08/11/18 diltiaZEM [Cardizem] 60 mg PO BID #60 tablet 06/29/18 08/12/18 Potassium Chloride 10 meq PO BID 08/11/18 08/11/18 Triamterene/Hydrochlorothiazid 1 cap PO DAILY 08/11/18 08/11/18 [Triamterene-Hctz 37.5-25 mg Cp] Trazodone HCl 100 mg PO QPM PRN 08/12/18 08/12/18 Amox/Clav 875/125 [Augmentin 1 tab PO BIDWM 6 Days #12 tablet 08/15/18 875/125] Budesonide [Pulmicort] 0.5 mg INH RTBID neb 08/15/18 Doxycycline Hyclate 100 mg PO BID 6 Days #12 tablet 08/15/18 Famotidine [Pepcid] 20 mg PO BID tablet 08/15/18 Lactobacillus Rhamnosus GG 1 cap PO DAILY #30 capsule 08/15/18 [Culturelle] Levalbuterol [Xopenex] 1.25 mg INH RTTID neb 08/15/18 Loperamide [Imodium] 2 mg PO QID PRN #40 capsule 08/15/18 Montelukast [Singulair] 10 mg PO QPM tablet 08/15/18 Saccharomyces Boulardii [Florastor] 250 mg PO DAILY #10 capsule 08/15/18 Sodium Chloride [Salt Tab] 1 gm PO BID tablet 08/15/18 guaiFENesin [Mucinex] 600 mg PO BID tablet 08/15/18 polyethylene glycoL 3350 [Miralax] 17 gm PO DAILY packet 08/15/18 - Allergies Allergies/Adverse Reactions: Allergies Allergy/AdvReac Type Severity Reaction Status Date / Time ciprofloxacin [From Cipro] AdvReac increased Verified 08/17/17 07:03 pain Sulfa (Sulfonamide AdvReac Nausea Verified 08/17/17 07:03 Antibiotics) - Social History Does the pt smoke?: No Smoking Status: Never smoker Does the pt drink ETOH?: No Does the pt have substance abuse?: No - Immunizations Immunizations are current?: Yes PD ED PE NORMAL - Vitals Vital signs reviewed: Yes - General General: Alert and oriented X 3, No acute distress - HEENT HEENT: Moist mucous membranes - Neck Neck: Supple, no meningeal sign - Derm Derm: Warm and dry - Extremities Extremities: Other (Tender to palpation posterior calf, mild of the left lower extremity. Neurovascular intact. No overlying skin changes, minimal erythema, appears chronic venous stasis-like. Does not appear infectious. ) - Neuro Neuro: Alert and oriented X 3 - Psych Psych: Normal mood, Normal affect Results - Vitals Vitals: Vital Signs - 24 hr 09/10/19 17:32 Temperature 36.1 C L Heart Rate 109 H Respiratory 16 Rate Blood Pressure 126/66 O2 Saturation 96 Oxygen O2 Source [With Activity] Room air O2 Source Room air - Rads (name of study) Duplex ultrasound left lower extremity Radiology: Prelim report reviewed, EMP read contemporaneously, See rad report PD MEDICAL DECISION MAKING - ED course Complexity details: considered differential, d/w patient ED course: 89-year-old female presents to the emergency department left lower extremity swelling. She will be signed out to the oncoming emergency department physician awaiting ultrasound results. Would expect that she can go home with conservative management if the ultrasound is negative. This document was made in part using voice recognition software. While efforts are made to proofread this document, sound alike and grammatical errors may occur. Departure - Departure Clinical Impression: Peripheral edema Condition: Good
[2019-09-10 19:44] VITALS: BP 165/85
--- NOTE | 2019-09-10 20:35 | Ultrasound Report ---
PROCEDURE: Duplex Ext Veins Left INDICATIONS: L LE swelling TECHNIQUE: Real-time imaging, as well as color and pulse Doppler interrogation, were performed of the lower extr emity deep veins from the inguinal ligament to the popliteal fossa. COMPARISON: None. FINDINGS: The deep veins are normally compressible, and free of intraluminal thrombus. Color and pu lse Doppler demonstrate normal phasic intraluminal flow. There is normal augmentation response to di stal compression maneuver. Moderate calf edema. IMPRESSION: No DVT in in the left lower extremity. Reviewed by: Gwen Emanuel MD on 09/10/2019 8:33 PM PDT Approved by: Gwen Emanuel MD on 09/10/2019 8:33 PM PDT Station ID: [id number]
== END 2019-09-10 20:00 | disposition home or self-care (01) ==
LOC: ED 17:24
DX: R60.0 Localized edema (principal)
CPT/HCPCS: 99284

== ENCOUNTER 2019-10-27 09:05 | Emergency (ER) | payer MEDICARE, OTHER ==
[2019-10-27 09:15] VITALS: BP 150/89
--- NOTE | 2019-10-27 10:01 | ED Physician Documentation ---
History of Present Illness - Stated complaint Stated Complaint: L LEG SWELLING - Chief complaint Chief Complaint: Ext Problem - History obtained from History obtained from: Patient - Additonal information Additional information: Patient comes emergency department complaining of ongoing swelling in her left lower extremity, now with some pain and discomfort in especially her posterior upper leg on the left. Patient states she has some discomfort in the calf as well. She states she has a history of a DVT and PE previously, though it has been quite some time, and she is concerned that she may have another DVT. Patient states she has been evaluated for this previously, since her former DVT, and her ultrasounds have always been negative. However, with the increase in discomfort, she is concerned that she may have developed a DVT. She states that the left lower extremity has been edematous and enlarged for about the last couple of months, at least. She states that it is about the same as it has been, swelling sr. No chest pain or shortness of breath. No fevers. No other complaints at this time. Review of Systems Ten Systems: 10 systems reviewed and negative Constitutional: reports: Reviewed and negative Eyes: reports: Reviewed and negative Ears: reports: Reviewed and negative Nose: reports: Reviewed and negative Throat: reports: Reviewed and negative Cardiac: reports: Reviewed and negative Respiratory: reports: Reviewed and negative GI: reports: Reviewed and negative : reports: Reviewed and negative Skin: reports: Reviewed and negative Musculoskeletal: reports: Extremity pain, Extremity swelling Neurologic: reports: Reviewed and negative Psychiatric: reports: Reviewed and negative Endocrine: reports: Reviewed and negative Immunocompromised: reports: Reviewed and negative PD PAST MEDICAL HISTORY - Past Medical History Past Medical History: Yes Cardiovascular: Congestive heart failure, Coronary artery disease, Deep vein thrombosis, Pulmonary embolism, Arrhythmia Respiratory: None Neuro: TIA Endocrine/Autoimmune: HyPOthyroidism GI: Colon polyps, Chronic constipation, Other : None, Incontinence HEENT: None Psych: None Musculoskeletal: Osteoporosis, Chronic back pain Derm: Other - Past Surgical History Past Surgical History: Yes General: Colonoscopy Ortho: Spine surgery, Other /DISC SANDER: Tubal ligation Cardiovascular: Other HEENT: Cataracts, Tonsil/Adenoidectomy Derm: Skin cancer surgery - Present Medications Home Medications: Ambulatory Orders Medication Instructions Recorded Confirmed Apixaban [Eliquis] 2.5 mg PO BID 03/12/15 08/11/18 Methenamine Hippurate 1 gm PO Q12H 08/15/17 08/11/18 Ascorbic Acid [Vitamin C] 500 mg PO DAILY 06/14/18 08/11/18 Cholecalciferol (Vitamin D3) 3,000 unit PO DAILY 06/14/18 08/11/18 [Vitamin D3] Levothyroxine Sodium [Synthroid] 50 mcg PO QDAC 06/26/18 08/11/18 Midodrine 2.5 mg PO TID #90 tablet 06/29/18 08/11/18 diltiaZEM [Cardizem] 60 mg PO BID #60 tablet 06/29/18 08/12/18 Potassium Chloride 10 meq PO BID 08/11/18 08/11/18 Triamterene/Hydrochlorothiazid 1 cap PO DAILY 08/11/18 08/11/18 [Triamterene-Hctz 37.5-25 mg Cp] Trazodone HCl 100 mg PO QPM PRN 08/12/18 08/12/18 Amox/Clav 875/125 [Augmentin 1 tab PO BIDWM 6 Days #12 tablet 08/15/18 875/125] Budesonide [Pulmicort] 0.5 mg INH RTBID neb 08/15/18 Doxycycline Hyclate 100 mg PO BID 6 Days #12 tablet 08/15/18 Famotidine [Pepcid] 20 mg PO BID tablet 08/15/18 Lactobacillus Rhamnosus GG 1 cap PO DAILY #30 capsule 08/15/18 [Culturelle] Levalbuterol [Xopenex] 1.25 mg INH RTTID neb 08/15/18 Loperamide [Imodium] 2 mg PO QID PRN #40 capsule 08/15/18 Montelukast [Singulair] 10 mg PO QPM tablet 08/15/18 Saccharomyces Boulardii [Florastor] 250 mg PO DAILY #10 capsule 08/15/18 Sodium Chloride [Salt Tab] 1 gm PO BID tablet 08/15/18 guaiFENesin [Mucinex] 600 mg PO BID tablet 08/15/18 polyethylene glycoL 3350 [Miralax] 17 gm PO DAILY packet 08/15/18 - Allergies Allergies/Adverse Reactions: Allergies Allergy/AdvReac Type Severity Reaction Status Date / Time ciprofloxacin [From Cipro] AdvReac increased Verified 08/17/17 07:03 pain Sulfa (Sulfonamide AdvReac Nausea Verified 08/17/17 07:03 Antibiotics) - Social History Does the pt smoke?: No Smoking Status: Never smoker Does the pt drink ETOH?: No Does the pt have substance abuse?: No - Immunizations Immunizations are current?: Yes PD ED PE NORMAL - Vitals Vital signs reviewed: Yes - General General: Alert and oriented X 3, No acute distress, Well developed/nourished - HEENT HEENT: Atraumatic, PERRL, EOMI, Moist mucous membranes - Neck Neck: Supple, no meningeal sign - Cardiac Cardiac: RRR, No murmur, Strong equal pulses - Respiratory Respiratory: No respiratory distress, Clear bilaterally - Derm Derm: Normal color (No erythema of the left lower extremity. No induration or fluctuance.), Warm and dry, No rash - Extremities Extremities: No deformity, Other (Marked edema of the left calf, ankle, and foot. No obvious edema above the knee. Tenderness over hamstring area on the left.) - Neuro Neuro: Alert and oriented X 3 - Psych Psych: Normal mood, Normal affect Results - Vitals Vitals: Vital Signs - 24 hr 10/27/19 09:10 Temperature 36.4 C L Heart Rate 84 Respiratory 16 Rate Blood Pressure 150/89 H O2 Saturation 96 Oxygen O2 Source [With Activity] Room air O2 Source Room air - Rads (name of study) LLE US Radiology: Final report received, EMP read indepedently, See rad report (no dvt) PD MEDICAL DECISION MAKING - ED course Complexity details: reviewed old records, reviewed results, re-evaluated patient, considered differential, d/w patient ED course: Patient was worked up with an ultrasound of her left lower extremity, which was unremarkable and showed no blood clot. I discussed with the patient that we have not found a DVT and that there is no emergent condition that has been identified today. We discussed follow-up with the patient's PCP, and the need for elevation to help drain some of the swelling from her leg. We have discussed the usual indications for return. Departure - Departure Disposition: 01 Home, Self Care Clinical Impression: Lower extremity edema Pain in extremity Qualifiers: Extremity pain location: lower extremity Laterality: left Qualified Code(s): M79.605 - Pain in left leg Condition: Stable Instructions: ED Leg Swelling Unilateral Comments: Your ultrasound does not show a blood clot today. It is not clear why you have the muscle soreness in the back of your leg, but no emergent condition has been identified. Please continue to elevate the leg to help get rid of some of the swelling and increase your comfort level. Please follow-up with your primary care physician for further concerns.
--- NOTE | 2019-10-27 10:59 | Ultrasound Report ---
PROCEDURE: Duplex Ext Veins Left INDICATIONS: pain/swelling TECHNIQUE: Real-time imaging, as well as color and pulse Doppler interrogation, were performed of the lower extr emity deep veins from the inguinal ligament to the popliteal fossa. COMPARISON: None. FINDINGS: The deep veins are normally compressible, and free of intraluminal thrombus. Color and pu lse Doppler demonstrate normal phasic intraluminal flow. There is normal augmentation response to di stal compression maneuver. IMPRESSION: No evidence of left lower extremity DVT. Reviewed by: Jack Fish MD on 10/27/2019 10:58 AM PDT Approved by: Jack Fish MD on 10/27/2019 10:58 AM PDT Station ID: [id number]
== END 2019-10-27 12:09 | disposition home or self-care (01) ==
LOC: ED 09:05
DX: M79.605 Pain in left leg (principal); R60.0 Localized edema; Z86.718 Personal history of other venous thrombosis and embolism; Z86.711 Personal history of pulmonary embolism; Z79.01 Long term (current) use of anticoagulants
CPT/HCPCS: 99284